=== PATIENT | female | born 1940 | race Caucasian/White ===

== ENCOUNTER 2019-12-01 14:33 | Outpatient (CLI) | payer MEDICARE, SELFPAY ==
--- NOTE | 2019-12-01 15:00 | USCV_ITS ---
Mireille Kaur Age: 79 Gender: F : 1940 Exam Date: 12/01/2019 14:51 Ordering Phys: Jaclyn Donahue INTERVENTIONAL RADIOLOGY TECHNOLOGIST-C Technologist: PRADIP FARNSWORTH Exam Location: [facility] [place] Indication: PERIPHERAL VASCULAR DISEASE Risk Factors: Previous Vascular Surgery: RIGHT LEFT BP: 120.0 / BP: 130.0/ 0 0 Waveform Velocity (cm/s) Velocity (cm/s) Waveform Triphasic 177.8 Iliac Prox 96.8 Triphasic Triphasic 153.3 Iliac Mid 95.8 Triphasic Triphasic 128.5 Iliac Distal 116.2 Monophasic Triphasic 136.7 PHYSICAL THERAPY PROFESSOR 145.7 Monophasic Triphasic 124.6 SFA Prox 120.5 Monophasic Triphasic 110.3 SFA Mid 140.3 Monophasic Triphasic SFA Dist Monophasic 100.3 102.5 Monophasic 85.4 POP 133.1 Monophasic Monophasic 70.9 PROJECT ENGINEERING MANAGER 104.3 Monophasic Monophasic 122.3 DPA 79.2 Monophasic 1.2 MAXIMINO 1.3 FINDINGS RT DPA 125 RT PT 160 LT DPA 164 LT PT 165 Normal resting ABIs bilaterally 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 No significant arterial obstruction, based on the above findings Dr Blanca Nava MD [facility] (Electronically Signed) Final Date: 01 December 2019 23:27 S
== END 2019-12-01 14:34 | disposition home or self-care (01) ==
LOC: RAD 14:38
PROVIDERS: Visit Provider Nurse Practitioner Family
DX: L53.9 Erythematous condition, unspecified (principal); R60.0 Localized edema; I73.9 Peripheral vascular disease, unspecified; I70.8 Atherosclerosis of other arteries
CPT/HCPCS: 93925

== ENCOUNTER → 2019-12-06 09:28 | Outpatient (BNVA) | payer MEDICARE, SELFPAY | PROVIDERS: Visit Provider Nurse Practitioner | DX: E11.65 Type 2 diabetes mellitus with hyperglycemia; Z79.4 Long term (current) use of insulin; L03.90 Cellulitis, unspecified | CPT/HCPCS: 80053; 80061; 81000; 83036; 84443; 85025 ==

== ENCOUNTER → 2019-12-21 12:52 | Outpatient (BNVA) | payer MEDICARE, SELFPAY | PROVIDERS: PCP Nurse Practitioner; Visit Provider Internal Medicine | DX: E11.69 Type 2 diabetes mellitus with other specified complication (principal); I50.9 Heart failure, unspecified; R79.89 Other specified abnormal findings of blood chemistry; K86.9 Disease of pancreas, unspecified; E55.9 Vitamin D deficiency, unspecified; K86.1 Other chronic pancreatitis; E78.5 Hyperlipidemia, unspecified | CPT/HCPCS: 36415; 80048; 82044; 82306; 84439; 84443; 84480; 84681; 99203 ==

== ENCOUNTER 2019-12-21 15:48 | Outpatient (CLI) | payer MEDICARE, SELFPAY ==
[2019-12-21 18:18] LABS: Anion Gap 14.7 (5-19); Blood Urea Nitrogen 30 mg/dL (8-23); Calcium 9.2 mg/dL (8.5-10.5); Carbon Dioxide 22 mmol/L (22-29); Chloride 95 mmol/L (98-107); Glucose 156 mg/dL (65-115); Osmolality Calculated 264 mOsm/kg (285-295); Potassium 4.7 mmol/L (3.5-5.1); Sodium 127 mmol/L (136-145); Thyroid Stimulating Hormone 0.01 uIU/mL (0.27-4.20)
[2019-12-21 19:28] LABS: Free T4 Free Thyroxine 2.98 ng/dL (0.82-1.77)
[2019-12-21 19:54] LABS: 25 Hydroxy Vitamin D > 100 ng/mL (30-100)
[2019-12-21 19:59] LABS: Creatinine Urine, Random 129 mg/dL (28-217)
[2019-12-21 20:03] LABS: Microalbum Creatinine Ratio Ur 8 mg/dL (0-20); Microalbumin Random Urine 1 ug/dL (0-20)
[2019-12-23 10:54] LABS: T3 Total 264 ng/dL (76-181)
[2019-12-23 11:55] LABS: C-Peptide 0.74 ng/mL (0.80-3.85)
== END 2019-12-21 15:49 | disposition home or self-care (01) ==
PROVIDERS: PCP Nurse Practitioner; Visit Provider Internal Medicine
DX: R79.89 Other specified abnormal findings of blood chemistry (principal); E55.9 Vitamin D deficiency, unspecified; E11.69 Type 2 diabetes mellitus with other specified complication; K86.9 Disease of pancreas, unspecified
CPT/HCPCS: 36415; 80048; 82044; 82306; 84439; 84443; 84480; 84681; 86376

== ENCOUNTER → 2019-12-22 11:53 | Outpatient (BNVA) | payer MEDICARE, SELFPAY | PROVIDERS: PCP Nurse Practitioner; Visit Provider Nurse Practitioner | DX: E87.1 Hypo-osmolality and hyponatremia (principal); I50.9 Heart failure, unspecified; K86.1 Other chronic pancreatitis | CPT/HCPCS: 80048; 82150; 83690 ==

== ENCOUNTER 2019-12-26 10:43 | Outpatient (CLI) | payer MEDICARE, SELFPAY ==
--- NOTE | 2019-12-26 | XR_ITS ---
WS: [id number] DEXA (DUAL ENERGY X-RAY ABSORPTIOMETRY) Bone mineral density was performed using a [email or web address] machine. HISTORY: POSTMENOPAUSAL STATE COMPARISON: None available. Left forearm BMD: 0.625 g/cm2. T score: -2.9 Z score: -0.3 Total hip BMD: Left: 0.750. T score: -2.0 Z score: -0.2 10 year probability of a major osteoporotic fracture is 32%. XR/XR DEXA axial skeleton* [id number] IMPRESSION: OSTEOPOROSIS based upon the WHO classification for females.
== END 2019-12-26 10:44 | disposition home or self-care (01) ==
LOC: RADWPI 10:50
PROVIDERS: Family Provider Nurse Practitioner; PCP Nurse Practitioner; Visit Provider Internal Medicine
DX: Z78.0 Asymptomatic menopausal state (principal); M81.0 Age-related osteoporosis without current pathological fracture
CPT/HCPCS: 77080

== ENCOUNTER 2019-12-29 10:29 | Outpatient (CLI) | payer MEDICARE, SELFPAY ==
[2019-12-29 11:36] LABS: Free T4 Free Thyroxine 2.13 ng/dL (0.82-1.77)
== END 2019-12-29 10:30 | disposition home or self-care (01) ==
LOC: LAB 10:34
PROVIDERS: PCP Nurse Practitioner; Visit Provider Internal Medicine
DX: R79.89 Other specified abnormal findings of blood chemistry (principal)
CPT/HCPCS: 83516; 84439

== ENCOUNTER 2020-01-05 10:43 | Outpatient (CLI) | payer MEDICARE, SELFPAY | END 2020-01-05 10:44 | disposition home or self-care (01) | LOC: LAB 10:47 | PROVIDERS: PCP Nurse Practitioner; Visit Provider Internal Medicine | DX: R79.89 Other specified abnormal findings of blood chemistry (principal) | CPT/HCPCS: 83516; 84439 ==

== ENCOUNTER → 2020-01-16 11:48 | Outpatient (BNVA) | payer MEDICARE, SELFPAY | PROVIDERS: PCP Nurse Practitioner; Referring Provider Internal Medicine Pulmonary Disease; Visit Provider Internal Medicine Cardiovascular Disease | DX: R06.02 Shortness of breath (principal); I50.33 Acute on chronic diastolic (congestive) heart failure; I73.9 Peripheral vascular disease, unspecified; R55 Syncope and collapse; E11.65 Type 2 diabetes mellitus with hyperglycemia; Z79.4 Long term (current) use of insulin; E78.5 Hyperlipidemia, unspecified; I25.10 Atherosclerotic heart disease of native coronary artery without angina pectoris; R07.89 Other chest pain; Z95.818 Presence of other cardiac implants and grafts; Z87.891 Personal history of nicotine dependence | CPT/HCPCS: 80048; 83880 ==

== ENCOUNTER → 2020-01-23 09:35 | Outpatient (BNVA) | payer MEDICARE, SELFPAY | PROVIDERS: PCP Nurse Practitioner; Visit Provider Internal Medicine | DX: E11.69 Type 2 diabetes mellitus with other specified complication (principal); E67.3 Hypervitaminosis D; E78.5 Hyperlipidemia, unspecified; K86.1 Other chronic pancreatitis; K86.9 Disease of pancreas, unspecified; M81.0 Age-related osteoporosis without current pathological fracture; R79.89 Other specified abnormal findings of blood chemistry | CPT/HCPCS: 99214 ==

== ENCOUNTER 2020-01-23 10:57 | Outpatient (CLI) | payer MEDICARE, SELFPAY ==
[2020-01-23 12:42] LABS: Free T4 Free Thyroxine 1.45 ng/dL (0.82-1.77)
== END 2020-01-23 10:58 | disposition home or self-care (01) ==
LOC: LAB 11:03
PROVIDERS: PCP Nurse Practitioner; Visit Provider Internal Medicine
DX: R79.89 Other specified abnormal findings of blood chemistry (principal)
CPT/HCPCS: 84439

== ENCOUNTER → 2020-02-16 10:32 | Outpatient (BNVA) | payer MEDICARE, SELFPAY | PROVIDERS: PCP Nurse Practitioner; Visit Provider Nurse Practitioner | DX: I50.9 Heart failure, unspecified (principal); E78.5 Hyperlipidemia, unspecified; Z12.39 Encounter for other screening for malignant neoplasm of breast; R09.81 Nasal congestion; H60.90 Unspecified otitis externa, unspecified ear | CPT/HCPCS: 80048 ==

== ENCOUNTER 2020-03-19 08:42 | Outpatient (CLI) | payer MEDICARE, SELFPAY ==
[2020-03-19 09:35] LABS: Estmated Average Glucose 235; Hemoglobin A1C 9.8 % (4.0-6.0)
[2020-03-19 09:44] LABS: Free T4 Free Thyroxine 1.15 ng/dL (0.82-1.77); Thyroid Stimulating Hormone 3.81 uIU/mL (0.27-4.20)
== END 2020-03-19 08:43 | disposition home or self-care (01) ==
PROVIDERS: PCP Nurse Practitioner; Visit Provider Internal Medicine
DX: R79.89 Other specified abnormal findings of blood chemistry (principal)
CPT/HCPCS: 36415; 83036; 84439; 84443

== ENCOUNTER 2020-03-26 13:45 | Outpatient (CLI) | payer MEDICARE, SELFPAY | END 2020-03-26 13:46 | disposition home or self-care (01) | LOC: LAB 01-09 12:20 | PROVIDERS: PCP Nurse Practitioner; Visit Provider Internal Medicine Pulmonary Disease | DX: I50.9 Heart failure, unspecified (principal); J44.9 Chronic obstructive pulmonary disease, unspecified; Z87.891 Personal history of nicotine dependence; I27.20 Pulmonary hypertension, unspecified; R06.02 Shortness of breath; Z20.822 Contact with and (suspected) exposure to COVID-19 | CPT/HCPCS: 87635 ==

== ENCOUNTER 2020-03-27 08:45 | Outpatient (CLI) | payer MEDICARE, SELFPAY ==
--- NOTE | 2020-03-27 09:00 | MM_ITS ---
WS: [id number] BILATERAL SCREENING DIGITAL MAMMOGRAM WITH CAD HISTORY: screen breast COMPARISON: None available. Bilateral CC and MLO views submitted. Computer aided detection analyzed. Breast composition: There are scattered areas of fibroglandular density. No suspicious masses, microc alcifications or architectural distortion. Cardiac loop or cortical projects over the posterior LEFT breast. MM/[place] [id number] IMPRESSION: BI-RADS: 2-Benign FOLLOW UP: 1 Year Follow-up
== END 2020-03-27 08:46 | disposition home or self-care (01) ==
PROVIDERS: PCP Nurse Practitioner; Visit Provider Nurse Practitioner
DX: Z12.31 Encounter for screening mammogram for malignant neoplasm of breast (principal)
CPT/HCPCS: 77067; 99214

== ENCOUNTER 2020-04-03 08:53 | Outpatient (CLI) | payer MEDICARE, SELFPAY ==
--- NOTE | 2020-04-03 09:15 | CT_ITS ---
WS: [id number] CT HEAD TECHNIQUE: Noncontrast and contrast-enhanced CT of the head. CLINICAL INFORMATION: SENSORINEURAL HEARING LOSS COMPARISON: None. DLP: 1851.[address] scans at [facility] use at least one of these dose optimization techniques: automat ed exposure control; mA and/or kV adjustment per patient size (includes targeted exams where dose is matched to clinical indication); or iterative reconstruction. FINDINGS: No evidence of intracranial hemorrhage or mass effect. Ventricular system and basal cisterns are celaya nt. Benign basal ganglia calcifications. Mild parenchymal volume loss. Normal morrison-white differentiat ion. No abnormal intracranial enhancement. No abnormal IAC enhancement. Visualized dural venous sinuses ap pear patent. Paranasal sinuses appear well aerated. Mastoid air cells are well aerated. CT/CT head wo/w con [id number] IMPRESSION: 1. No evidence of intracranial hemorrhage or mass effect. 2. Normal morrison-white differentiation. Mild parenchymal volume loss. 3. No abnormal intracranial enhancement. 4. No evidence of CP angle or proximal IAC mass. 5. Paranasal sinuses and mastoid air cells well aerated.
[2020-04-03] MEDS: iohexol 300 mg/mL 100 mL Btl IV (10:00)
== END 2020-04-03 08:54 | disposition home or self-care (01) ==
LOC: RADWPI 08:57
PROVIDERS: PCP Nurse Practitioner; Visit Provider Specialist
DX: H90.3 Sensorineural hearing loss, bilateral (principal)
CPT/HCPCS: 70470; Q9967

== ENCOUNTER 2020-04-03 11:00 | Outpatient (CLI) | payer MEDICARE, SELFPAY | END 2020-04-03 11:01 | disposition home or self-care (01) | LOC: SLEEP 04-04 16:19 | PROVIDERS: PCP Nurse Practitioner; Visit Provider Internal Medicine Pulmonary Disease | DX: G47.33 Obstructive sleep apnea (adult) (pediatric) (principal) | CPT/HCPCS: 94762 ==

== ENCOUNTER → 2020-04-05 13:37 | Outpatient (BNVA) | payer MEDICARE, SELFPAY | PROVIDERS: PCP Nurse Practitioner; Visit Provider Internal Medicine Pulmonary Disease | DX: Z11.59 Encounter for screening for other viral diseases (principal); R06.02 Shortness of breath | CPT/HCPCS: 87635 ==

== ENCOUNTER 2020-04-10 12:39 | Outpatient (CLI) | payer MEDICARE, SELFPAY ==
[2020-04-10 13:15] VITALS: BP 150/83
== END 2020-04-10 12:40 | disposition home or self-care (01) ==
LOC: RT 12:40
PROVIDERS: PCP Nurse Practitioner; Visit Provider Internal Medicine Pulmonary Disease
DX: R06.02 Shortness of breath (principal)
CPT/HCPCS: 94618

== ENCOUNTER → 2020-05-01 13:40 | Outpatient (BNVA) | payer MEDICARE, SELFPAY | PROVIDERS: PCP Nurse Practitioner; Referring Provider Dermatology; Visit Provider Podiatrist Foot & Ankle Surgery | DX: M79.671 Pain in right foot (principal); M79.672 Pain in left foot | CPT/HCPCS: 73630 ==

== ENCOUNTER → 2020-05-15 11:38 | Outpatient (BNVA) | payer MEDICARE, SELFPAY | PROVIDERS: PCP Nurse Practitioner; Visit Provider Internal Medicine Pulmonary Disease | DX: R06.02 Shortness of breath (principal); Z20.828 Contact with and (suspected) exposure to other viral communicable diseases | CPT/HCPCS: 87635 ==

== ENCOUNTER 2020-05-21 10:03 | Outpatient (CLI) | payer MEDICARE, SELFPAY ==
--- NOTE | 2020-05-21 13:26 | PFTS_ITS ---
Date of Study:05/21/20 Date of Dictation: MECHANICS: Forced vital capacity (FVC) is normal. Forced expiratory volume in one second (FEV1) is moderately reduced. FEV1/FVC is reduced. FLOW VOLUME LOOP: scooping of end expiratory limb suggestive of small airway obstruction . LUNG VOLUMES: Total lung capacity (TLC) is normal . Residual volume (RV) is moderately increased suggestive of air trapping . DIFFUSING CAPACITY FOR CARBON MONOXIDE:normal . INTERPRETATION: The spirometry suggestive moderately reduced obstructive ventilatory defect. Lung volumes suggestive of moderate air trapping. Gas exchange (DLCO) is normal. . MTDD
== END 2020-05-21 10:04 | disposition home or self-care (01) ==
LOC: RT 10:06
PROVIDERS: PCP Nurse Practitioner; Visit Provider Internal Medicine Pulmonary Disease
DX: R06.02 Shortness of breath (principal)
CPT/HCPCS: 94060; 94726; 94729; J7611

== ENCOUNTER → 2020-06-03 10:06 | Outpatient (BNVA) | payer MEDICARE, SELFPAY | PROVIDERS: PCP Nurse Practitioner; Visit Provider Nurse Practitioner | DX: E13.610 Other specified diabetes mellitus with diabetic neuropathic arthropathy (principal); L03.90 Cellulitis, unspecified | CPT/HCPCS: 85025 ==

== ENCOUNTER → 2020-06-24 08:12 | Outpatient (BNVA) | payer MEDICARE, SELFPAY | PROVIDERS: PCP Nurse Practitioner; Visit Provider Internal Medicine | DX: E03.9 Hypothyroidism, unspecified (principal); E11.65 Type 2 diabetes mellitus with hyperglycemia; R79.89 Other specified abnormal findings of blood chemistry; K86.1 Other chronic pancreatitis; Z79.4 Long term (current) use of insulin; E67.3 Hypervitaminosis D; I50.9 Heart failure, unspecified; M81.0 Age-related osteoporosis without current pathological fracture; E11.610 Type 2 diabetes mellitus with diabetic neuropathic arthropathy | CPT/HCPCS: 83036; 84439; 84443; 84480; 99214 ==

== ENCOUNTER → 2020-07-09 09:51 | Outpatient (BNVA) | payer MEDICARE, SELFPAY | PROVIDERS: PCP Nurse Practitioner; Visit Provider Nurse Practitioner | DX: E11.621 Type 2 diabetes mellitus with foot ulcer (principal); Z79.4 Long term (current) use of insulin; E11.65 Type 2 diabetes mellitus with hyperglycemia; L97.509 Non-pressure chronic ulcer of other part of unspecified foot with unspecified severity; M85.871 Other specified disorders of bone density and structure, right ankle and foot; Z89.411 Acquired absence of right great toe | CPT/HCPCS: 73630 ==

== ENCOUNTER → 2020-07-11 08:49 | Outpatient (BNVA) | payer MEDICARE, SELFPAY | PROVIDERS: PCP Nurse Practitioner; Visit Provider Internal Medicine Pulmonary Disease | DX: E03.9 Hypothyroidism, unspecified (principal); I27.20 Pulmonary hypertension, unspecified | CPT/HCPCS: 80053 ==

== ENCOUNTER → 2020-08-06 09:45 | Outpatient (BNVA) | payer MEDICARE, SELFPAY | PROVIDERS: PCP Nurse Practitioner; Visit Provider Nurse Practitioner | DX: E11.621 Type 2 diabetes mellitus with foot ulcer (principal); E13.610 Other specified diabetes mellitus with diabetic neuropathic arthropathy; I10 Essential (primary) hypertension; E78.5 Hyperlipidemia, unspecified; L97.509 Non-pressure chronic ulcer of other part of unspecified foot with unspecified severity; Z79.4 Long term (current) use of insulin | CPT/HCPCS: 80048 ==

== ENCOUNTER 2020-11-08 08:03 | Outpatient (CLI) | payer MEDICARE, SELFPAY ==
[2020-11-08 08:16] VITALS: BMI 29.7
--- NOTE | 2020-11-08 08:39 | ECG_ITS ---
[facility] Test Date: 2020-11-08 Pat Name: Mireille Kaur Department: Room: Gender: Female Parts Sales Associate: Roseann Carbajal : 1940 Requested By: Blanca Nava Order Number: [id number] Reading MD: Blanca Nava M.D. Interpretive Statements NAME OF STUDY: LEXISCAN SESTAMIBI STRESS TEST INDICATION: Chest Pain, PROCEDURE: At the baseline, the EKG revealed normal sinus rhythm with a normal ST-T's. The baseline blood pressure was 192/92 mm Hg with a heart rate of 77 beats/min. Lexiscan was infused over a period of 20 seconds. A total of 0.4 milligrams of Lexiscan was infused. The stress phase was continued for a total of 5 minutes. Heart rate at the end of the stress phase was 95 with a blood pressure 180/100. The EKG at the peak infusion revealed no significant changes. Sestamibi was injected 20 seconds after the Lexiscan infusion. Blood pressure at the end of the recovery phase was 174/98 with a heart rate of 96 per minute. CONCLUSION: 1. No significant EKG changes with the LexiScan infusion 2. No LexiScan induced chest pain or cardiac arrhythmia 3. Normal blood pressure and heart rate response 4. Sestamibi/sestamibi perfusion scan pending; see separate report. Electronically Signed On 11-08-2020 10:03:54 CDT by Blanca Nava M.D. [email or web address]
--- NOTE | 2020-11-08 08:40 | NMCV_ITS ---
NM isaac perf SPECT r/s* [id number] Mireille Kaur Age: 80 Gender: F : 1940 Exam Date: 11/08/2020 09:05 Ordering Phys: Blanca Nava MD ([email or web address]) Technologist: JIMMIE Gómez Exam Location: [facility] Indications: SHORTNESS OF BREATH, CHEST PAIN STRESS TEST Please [facility] IMAGE PROTOCOL Rest/Stress 1 Lexiscan Day Radiopharmaceutical Dose (mCi) Administration Site Administered by Rest: Tc-99m 10.8 IV JIMMIE Carrasco Sestamibi Stress:Tc-99m 32.8 IV JIMMIE Carrasco Sestamibi Rest: 08-Nov-2020 60 Discovery 630 Stress: 08-Nov-2020 30 Discovery 630 0.4mg Lexiscan. Supine position only as patient was unable to lay prone. SPECT RESULTS Technical Quality: Excellent Raw Data Analysis: Normal Image Corrections: No attenuation or motion correction applied Summed Stress Score: 1 Summed Rest Score: 2 Summed Difference Score: 0 PERFUSION FINDINGS Fairly uniform myocardial tracer uptake with patchy areas of decreased tracer uptake in the apical segments with no significant reversibility FUNCTIONAL RESULTS (calculated via Gated SPECT) Stress Image LV EF (%): 74 Stress EDV (mL):62 TID: 0.92 Stress ESV (mL):16 FUNCTIONAL FINDINGS: Segmental wall motion analysis revealing no gross wall motion normalities. IMPRESSIONS 1. Myocardial perfusion imaging revealing patchy areas of persistent decreased tracer uptake in the apical segments, most likely represent attenuation artifacts. 2. Normal LV ejection fraction of 74%. 3. LV wall motion analysis revealing no gross wall motion normalities. 4. Normal LV volume. No significant coronary ischemia, based on the above findings Dr Blanca Nava MD [facility] (Electronically Signed) Final Date: 08 November 2020 11:03 S
[2020-11-08 09:50] VITALS: BP 161/102; PULSE 100
[2020-11-08] MEDS: regadenoson 0.4 Mg/5 ml Syringe IVP (09:50)
== END 2020-11-08 08:04 | disposition home or self-care (01) ==
LOC: CDL 08:06
PROVIDERS: PCP Nurse Practitioner; Visit Provider Internal Medicine Cardiovascular Disease
DX: R07.9 Chest pain, unspecified (principal); R06.02 Shortness of breath
CPT/HCPCS: 78452; 93017; A9500; J2785

== ENCOUNTER → 2020-12-23 08:31 | Day surgery (SDC) | payer MEDICARE, SELFPAY ==
[2020-12-23 08:53] VITALS: BP 134/74; PULSE 64; RESP 18; TEMP 36.5; O2SAT 97
[2020-12-23 09:30] LABS: Blood Urea Nitrogen 14 mg/dL (8-23); Calcium 8.8 mg/dL (8.5-10.5)
== END ==
PROVIDERS: PCP Nurse Practitioner; Visit Provider Internal Medicine
DX: M81.0 Age-related osteoporosis without current pathological fracture (principal)
CPT/HCPCS: 36415; 82310; 82565; 84520; 96365; J3489

== ENCOUNTER → 2021-01-27 15:14 | Outpatient (BNVA) | payer MEDICARE, SELFPAY | PROVIDERS: PCP Nurse Practitioner; Visit Provider Specialist | DX: J01.90 Acute sinusitis, unspecified (principal) | CPT/HCPCS: 80048; 85007; 85027 ==

== ENCOUNTER → 2021-02-18 10:01 | Outpatient (BNVA) | payer MEDICARE, SELFPAY | PROVIDERS: PCP Nurse Practitioner; Visit Provider Internal Medicine Pulmonary Disease | DX: E11.69 Type 2 diabetes mellitus with other specified complication (principal); K86.9 Disease of pancreas, unspecified; R79.89 Other specified abnormal findings of blood chemistry | CPT/HCPCS: 82570; 83036; 84156 ==

== ENCOUNTER → 2021-03-05 10:01 | Outpatient (BNVA) | payer MEDICARE, SELFPAY | PROVIDERS: PCP Nurse Practitioner; Visit Provider Nurse Practitioner | DX: I10 Essential (primary) hypertension (principal) | CPT/HCPCS: 81000 ==

== ENCOUNTER → 2021-03-10 17:09 | Outpatient (BNVA) | payer MEDICARE, SELFPAY | PROVIDERS: PCP Nurse Practitioner; Visit Provider Specialist | DX: H90.3 Sensorineural hearing loss, bilateral (principal); H93.13 Tinnitus, bilateral | CPT/HCPCS: 84520 ==

== ENCOUNTER 2021-04-08 13:32 | Outpatient (CLI) | payer MEDICARE, SELFPAY ==
--- NOTE | 2021-04-08 14:00 | MM_ITS ---
WS: [id number] BILATERAL DIGITAL SCREENING MAMMOGRAPHY WITH CAD CLINICAL INFORMATION: Z12.31 - Encounter for screening mammogram for malignant ... HISTORY: Screening mammogram. No current complaints. COMPARISON: March 27, 2020 TECHNIQUE: Bilateral CC and MLO views. FINDINGS: Loop recorder left breast Scattered fibroglandular densities bilaterally. Vascular calcification. No suspicious focal mass, asy mmetry, calcifications, or architectural distortion. No evidence of malignancy. MM/[place] [id number] IMPRESSION: BI-RADS: 2-Benign FOLLOW UP: 1 Year Follow-up Recommend return to annual screening mammography.
== END 2021-04-08 13:33 | disposition home or self-care (01) ==
LOC: RADSHAW 13:36
PROVIDERS: PCP Nurse Practitioner; Visit Provider Nurse Practitioner
DX: Z12.31 Encounter for screening mammogram for malignant neoplasm of breast (principal)
CPT/HCPCS: 77067

== ENCOUNTER 2021-04-22 07:51 | Outpatient (CLI) | payer MEDICARE, SELFPAY ==
--- NOTE | 2021-04-22 | CT_ITS ---
WS: [id number] CT HEAD TECHNIQUE: Noncontrast and contrast-enhanced CT of the head. CLINICAL INFORMATION: BILATERAL HEARING LOSS, TINNITIS COMPARISON: April 03, 2020 DLP: 2344.[address] scans at [facility] use at least one of these dose optimization techniques: automated e xposure control; mA and/or kV adjustment per patient size (includes targeted exams where dose is matc hed to clinical indication); or iterative reconstruction. FINDINGS: No evidence of intracranial hemorrhage or mass effect. Ventricular system and basal cisterns are celaya nt. Mild small vessel changes. Mild parenchymal volume loss. Basal ganglia calcifications. Cavernous carotid calcifications. Normal morrison-white differentiation.No abnormal intracranial enhancement.No oral dence of CP angle or proximal IAC mass. CT/CT head wo/w con [id number] IMPRESSION: 1. No evidence of intracranial hemorrhage or mass effect. 2. Mild mucosal thickening ethmoid air cells. Paranasal sinuses are well aerat ed where visualized. Maxillary sinuses not entirely included. 3. Mastoid air cells are well aerated. 4. No abnormal intracranial enhancement.
[2021-04-22 08:24] LABS: Blood Urea Nitrogen 9 mg/dL (8-23)
[2021-04-22] MEDS: iohexol 300 mg/mL 100 mL Btl IV (15:11)
== END 2021-04-22 07:52 | disposition home or self-care (01) ==
PROVIDERS: PCP Nurse Practitioner; Visit Provider Specialist
DX: H90.3 Sensorineural hearing loss, bilateral (principal); H93.13 Tinnitus, bilateral
CPT/HCPCS: 70470; 82565; 84520; Q9967

== ENCOUNTER → 2021-06-27 08:08 | Outpatient (BNVA) | payer MEDICARE, OTHER, SELFPAY | PROVIDERS: PCP Nurse Practitioner; Visit Provider Internal Medicine | DX: E11.65 Type 2 diabetes mellitus with hyperglycemia (principal); E11.69 Type 2 diabetes mellitus with other specified complication; I50.9 Heart failure, unspecified; E03.9 Hypothyroidism, unspecified; E67.3 Hypervitaminosis D; R79.89 Other specified abnormal findings of blood chemistry; E78.5 Hyperlipidemia, unspecified; K86.9 Disease of pancreas, unspecified; K86.1 Other chronic pancreatitis; M81.0 Age-related osteoporosis without current pathological fracture; E16.0 Drug-induced hypoglycemia without coma; T38.3X5A Adverse effect of insulin and oral hypoglycemic [antidiabetic] drugs, initial encounter; Z79.4 Long term (current) use of insulin; Z87.891 Personal history of nicotine dependence | CPT/HCPCS: 99215 ==

== ENCOUNTER → 2021-07-01 08:16 | Outpatient (BNVA) | payer MEDICARE, OTHER, SELFPAY | PROVIDERS: PCP Nurse Practitioner; Visit Provider Internal Medicine | DX: E03.9 Hypothyroidism, unspecified (principal); E11.65 Type 2 diabetes mellitus with hyperglycemia; E67.3 Hypervitaminosis D; E78.5 Hyperlipidemia, unspecified; I50.9 Heart failure, unspecified; R79.89 Other specified abnormal findings of blood chemistry | CPT/HCPCS: 80053; 80061; 82306; 83036; 84439; 84443 ==

== ENCOUNTER → 2021-07-14 08:16 | Outpatient (BNVA) | payer MEDICARE, OTHER, SELFPAY | PROVIDERS: PCP Nurse Practitioner; Visit Provider Internal Medicine | DX: E11.69 Type 2 diabetes mellitus with other specified complication (principal); K86.9 Disease of pancreas, unspecified; K86.1 Other chronic pancreatitis; E67.3 Hypervitaminosis D; M81.0 Age-related osteoporosis without current pathological fracture; E03.9 Hypothyroidism, unspecified; E78.5 Hyperlipidemia, unspecified; E16.0 Drug-induced hypoglycemia without coma; T38.3X5A Adverse effect of insulin and oral hypoglycemic [antidiabetic] drugs, initial encounter; Z79.4 Long term (current) use of insulin; Z87.891 Personal history of nicotine dependence | CPT/HCPCS: 99214 ==

== ENCOUNTER 2021-07-24 07:56 | Outpatient (CLI) | payer MEDICARE, OTHER, SELFPAY ==
--- NOTE | 2021-07-24 08:45 | USCV_ITS ---
Mireille Kaur Age: 81 Gender: F : 1940 Exam Date: 07/24/2021 09:00 Ordering Phys: Farhad Rob MD Technologist: Ramone Hallman Exam Location: [facility] [place] Indication: Dizziness upon laying down BP: 121 / 75 HR: 59 Rhythm: Sinus Technical Quality: Adequate MEASUREMENTS (Male / Female) Normal Values 2D ECHO LV Diastolic Diameter PLAX 3.6 cm 4.2 - 5.9 / 3.9 - 5.3 cm LV Systolic Diameter PLAX 2.6 cm IVS Diastolic Thickness 1.7 cm 0.6 - 1.0 / 0.6 - 0.9 cm IVS Systolic Thickness 1.3 cm LVPW Diastolic Thickness 1.7 cm 0.6 - 1.0 / 0.6 - 0.9 cm LVPW Systolic Thickness 2.2 cm LVOT Diameter 2.0 cm LV Ejection Fraction 2D Teich 43.7 % LV Ejection Fraction MOD 2C 60.7 % LV Ejection Fraction 2C AL 60.0 % LA Diameter 3.6 cm LA Width 3.7 cm LA Height 5.9 cm RA Width 3.9 cm RA Height 4.7 cm Aorta at Sinotubular Diameter 1.9 cm M-MODE Aortic Annulus Diameter 2.2 cm LA Ao Ratio MM 1.7 MV E Point Septal Separation 0.8 cm DOPPLER AV Peak Velocity 204.0 cm/s LVOT Peak Velocity 89.0 cm/s AV Area Cont Eq vti 1.5 cm squared AV Area Cont Eq pk 1.4 cm squared MV Area PHT 3.5 cm squared Mitral E to A Ratio 1.6 MV E' Velocity 58.0 cm/s Mitral E to MV E' Ratio 9.7 Mitral E to LV E' Lateral Ratio 8.6 Mitral E to LV E' Septal Ratio 11.2 TR Peak Velocity 212.8 cm/s TR Peak Gradient 18.1 mmHg TR Mean Velocity 133.7 cm/s TR Mean Gradient 8.0 mmHg TR Velocity Time Integral 42.9 cm Right Atrial Pressure 3.0 mmHg Pulmonary Artery Systolic Pressu 21.1 mmHg PV Peak Velocity 90.0 cm/s FINDINGS Left Ventricle Normal left ventricular size. LV systolic function is normal with EF of 55-60%. No regional wall motion abnormalities. Diastolic function is normal Right Ventricle The right ventricle is normal in size and function. Right Atrium The right atrium is normal in size. Left Atrium The left atrium is normal in size. Mitral Valve Structurally normal mitral valve without significant stenosis or prolapse. There is mild mitral regurgitation. Aortic Valve Structurally normal aortic valve without significant sclerosis or stenosis. There is no aortic regurgitation. Tricuspid Valve Structurally normal tricuspid valve without significant stenosis. Mild tricuspid regurgitation. Insufficient TR jet to calculate RVSP. Pulmonic Valve Structurally normal pulmonic valve without significant stenosis. There is no pulmonic regurgitation. Pericardium Normal pericardium without effusion. Aorta Normal ascending aorta dimension. CONCLUSIONS LV systolic function is normal with EF 55 to 60%. Diastolic function is normal. Mild mitral regurgitation is seen. Mild tricuspid regurgitation No comparison studies are available Ilya Franco MD (Electronically Signed) Final Date: 25 July 2021 16:49 S
== END 2021-07-24 07:57 | disposition home or self-care (01) ==
LOC: RAD 07:58
PROVIDERS: PCP Nurse Practitioner; Visit Provider Internal Medicine Pulmonary Disease
DX: I27.20 Pulmonary hypertension, unspecified (principal); R42 Dizziness and giddiness; I08.1 Rheumatic disorders of both mitral and tricuspid valves
CPT/HCPCS: 93306

== ENCOUNTER → 2021-08-04 13:21 | Outpatient (BNVA) | payer MEDICARE, OTHER, SELFPAY | PROVIDERS: PCP Nurse Practitioner; Visit Provider Internal Medicine Cardiovascular Disease | DX: E11.65 Type 2 diabetes mellitus with hyperglycemia (principal); I27.20 Pulmonary hypertension, unspecified; I25.10 Atherosclerotic heart disease of native coronary artery without angina pectoris; Z87.891 Personal history of nicotine dependence | CPT/HCPCS: 99214 ==

== ENCOUNTER 2021-09-24 17:29 | Emergency (ER) | payer MEDICARE, OTHER, SELFPAY ==
[2021-09-24] VITALS (7 sets, daily range): BP systolic 139–172; BP diastolic 76–91; PULSE 70–107; RESP 21–25; TEMP 36.8; O2SAT 90–95; BMI 28.7
--- NOTE | 2021-09-24 17:45 | XRR_ITS ---
PROCEDURE INFORMATION: Exam: XR Chest Exam date and time: 09/24/2021 6:22 PM Age: 81 years old Clinical indication: Chest wall pain; Additional info: Chest pain TECHNIQUE: Imaging protocol: XR of the chest. Views: 1 view. COMPARISON: No relevant prior studies available. FINDINGS: Tubes, catheters and devices: Spinal stimulator leads noted within the midthoracic spine. Loop recorder device noted in the left chest wall. Lungs: No consolidation. Pleural spaces: No pleural effusion. No pneumothorax. Heart/Mediastinum: No cardiomegaly. Hiatal hernia noted. Bones/joints: Visualized osseous structures are intact. Rotator cuff anchor noted in the right humeral head. XR/XR chest 1V portable [id number] IMPRESSION: No acute findings.
[2021-09-24 18:12] LABS: Basophils % 0.2 %; Eosinophils % 0.2 %; Hematocrit 35.7 % (37.0-47.0); Hemoglobin 11.2 g/dL (11.5-15.3); Lymphocytes # 3.6 10^3/uL (0.8-4.8); Lymphocytes % 28.1 %; Mean Corpuscular HGB Conc 31.4 g/dL (30.0-36.0); Mean Corpuscular Hemoglobin 25.3 pg (28.0-34.0); Mean Corpuscular Volume 80.6 fl (81-99); Monocytes % 8.1 %; Neutrophils # 8.03 10^3/uL (1.8-7.7); Neutrophils % 62.8 %; Nucleated Red Blood Cells % 0 %; Platelet Count 289 10^3/cmm (130-400); Red Blood Count 4.43 10^6/uL (4.1-5.3); Red Cell Distribution Width 15.9 % (12.1-15.1); White Blood Count 12.8 10^3/uL (4.0-10.0)
[2021-09-24 18:54] LABS: Lipase 98 U/L (13-60)
[2021-09-24 18:55] LABS: Troponin(5th) Baseline 11 ng/L (0-10)
[2021-09-24 18:59] LABS: Alanine Aminotransferase 14 U/L (0-33); Albumin Level 3.9 g/dL (3.5-5.2); Alkaline Phosphatase 124 IU/L (35-105); Aspartate Amino Transferase 13 U/L (0-32); Blood Urea Nitrogen 10 mg/dL (8-23); Calcium 8.9 mg/dL (8.5-10.5); Carbon Dioxide 22 mmol/L (22-29); Chloride 96 mmol/L (98-107); Creatinine Clr Calc Pharmacy 47.8777; Globulin 4.2 g/dL (1.3-4.6); Glucose 167 mg/dL (65-115); NT Pro B Type Natriuretic Pept 489 pg/mL (0-450); Osmolality Calculated 275 mOsm/kg (285-295); Sodium 131 mmol/L (136-145); Total Bilirubin 0.7 mg/dL (0.15-1.2); Total Protein 8.1 g/dL (6.6-8.7)
--- NOTE | 2021-09-24 19:29 | CTR_ITS ---
PROCEDURE INFORMATION: Exam: CT Abdomen And Pelvis With Contrast Exam date and time: 09/24/2021 7:56 PM Age: 81 years old Clinical indication: Abdominal pain; Localized; Right upper quadrant (ruq); Prior surgery; Surgery date: 6+ months; Surgery type: Hysterectomy, heart stents; Patient HX: HX of chronic pancreatitis, family HX of pancreatitis; Additional info: Pancreatitis suspected, multiple family member from pancreatic disease TECHNIQUE: Imaging protocol: Computed tomography of the abdomen and pelvis with contrast. Radiation optimization: All CT scans at this facility use at least one of these dose optimization techniques: automated exposure control; mA and/or kV adjustment per patient size (includes targeted exams where dose is matched to clinical indication); or iterative reconstruction. Contrast material: OMNI 300; Contrast volume: 48 ml; Contrast route: INTRAVENOUS (IV); COMPARISON: US abdomen complete* [id number] 07/14/2018 8:45 AM RADIATION DOSE METRICS: Total DLP (mGy-cm): 1353.37 FINDINGS: Liver: Normal. No mass. Gallbladder and bile ducts: Normal. No calcified stones. No ductal dilation. Pancreas: Irregular stricturing and dilation of the pancreatic duct measures measuring up to 1.3 cm. Scattered coarse calcifications throughout the pancreas most prominent in the pancreatic head. No acute inflammatory changes seen around the pancreas. Spleen: Normal. No splenomegaly. Adrenal glands: Normal. No mass. Kidneys and ureters: Simple appearing cysts within both kidneys measuring up to 7.6 cm in the upper pole of the left kidney. No hydronephrosis. Stomach and bowel: Moderate-sized hiatal hernia containing the proximal portion of the stomach. Colonic diverticulosis without findings to suggest acute diverticulitis. No obstruction. No mucosal thickening. Appendix: No evidence of appendicitis. Intraperitoneal space: Unremarkable. No free air. No significant fluid collection. Vasculature: Unremarkable. No abdominal aortic aneurysm. Lymph nodes: Unremarkable. No enlarged lymph nodes. Urinary bladder: Unremarkable as visualized. Reproductive: Hysterectomy. Bones/joints: No acute fracture. Grade 1 anterolisthesis of L4 on L5. Right total hip arthroplasty noted. Soft tissues: Spinal stimulator device noted in the right low back with leads extending into the thoracic spine. CT/CT abdomen pelvis w con* [id number] IMPRESSION: Sequela of chronic pancreatitis including irregular stricturing and dilation of the pancreatic duct and diffuse coarse calcifications. No acute inflammatory changes seen around the pancreas. COMMENTS: Consistent with the [employer]'s Incidental Findings Committee white paper (J Am Lonnie Radiol 2018): Any incidental renal lesion less than 1 cm or classified as too small to characterize, or any incidental cystic renal lesion characterized as simple-appearing, is likely benign. No follow-up imaging is recommended for these lesions per consensus recommendations based on imaging criteria.
[2021-09-24] MEDS: HYDROmorphone 1 mg/mL INJ 1 mL 0.4 MG IVP (19:40)
[2021-09-24] MEDS: ondansetron 2 mg/ML SDV 2 mL 4 MG IVP ×2 (19:41→21:50)
[2021-09-24] MEDS: iohexol 300 mg/mL 100 mL Btl IV (19:52)
--- NOTE | 2021-09-24 20:14 | ED_ITS ---
HPI - Chest Pain General: Chief Complaint: Chest Pain Stated Complaint: Chest pains Time Seen by Provider: 09/24/21 17:40 History of Present Illness: To [id number] female sensory department complaining of left lower chest as well as left upper quadrant and epigastric pain for the last 3 to 4 days. She reports no shortness of breath but she does have nausea. She has not noticed any definite postprandial association this time but in the past patient reports she has had pancreatitis. In fact several of her family members have had recurrent pancreatitis and even from it. She thinks there is some sort of a genetic predilection. Patient denies any fever, hemoptysis. She has had some yellowish sputum production. Pain radiates into her back at times. She takes lipase protease amylase capsules. She also has COPD. She is not sure whether she is ever had pleurisy. She does not think she is ever had a heart attack but has CHF. Review of Systems General: Reports: 10 or more systems reviewed and unremarkable except in HPI and below PFSH ED PFSH: Medical History Appendicitis, acute Atherosclerotic heart disease of [place] coronary artery without angina pectoris Patient had the cardiac catheterization in [place], in 2014. At that time, she was found to have mild diffuse coronary artery disease. Atypical chest pain Cataract Chronic episodic atrial fibrillation Chronic pancreatitis Congestive heart failure COPD (chronic obstructive pulmonary disease) Diabetes mellitus associated with pancreatic disease Dyslipidemia Peripheral vascular disease Recurrent syncope EKG from today 01/16/2020- revealed normal sinus rhythm with early repolarization changes in the inferolateral leads. No acute ST-T changes are noted. Normal HI interval with nonspecific intraventricular conduction delay Rotator cuff arthropathy Status post placement of implantable loop recorder Vitamin D deficiency Surgical History Hip joint replacement by other means History of appendectomy History of back surgery History of nasal surgery Hx of hysterectomy, total Hx of toe surgery Family History Brother Bleeding disorder Clotting disorder CAD (coronary artery disease) Stroke Father CAD (coronary artery disease) Cancer Chronic kidney disease (CKD) Sister CAD (coronary artery disease) Cancer Lung disease Diabetes Grandmother Cancer Grandfather CAD (coronary artery disease) Other Hypertension Denies family history of Dementia Suicide Anesthesia complication Social History Smoking and tobacco status: former smoker Quit status (tobacco): has quit using tobacco Year quit tobacco: 2017 - PPD x 65 Years Second hand smoke exposure: No Smoking risk assessment/counseling performed?: Yes Alcohol intake: never Desire information about alcohol rehabilitation?: No Counseling given: No Desire information about substance/drug rehabilitation?: No Counseling given: No Adopted: No Caregiver/support person: No Lives independently: Yes Household members: none Housing: House Marital status: / service: No Current occupational status: retired Pets and animals: No History of recent travel: No (Moved here from [place] in November 2019) Current gender identity: Female Physical Exam Const: COMMON NORMALS: no limitations, alert and well nourished EXAM LIMITATIONS: no altered mental status HENMT: COMMON NORMALS: normocephalic, atraumatic and external ears normal H EAD & SCALP: normocephalic and atraumatic EXTERNAL EAR: Yes external ears normal MOUTH: no muffled voice Eye: COMMON NORMALS: EOMs intact bilaterally and conjunctivae normal CONJUNCTIVA: Yes conjunctivae normal Neck/C-Spine: COMMON NORMALS: no JVD GENERAL: Yes normal visual inspection and Yes trachea midline Chest: CHEST: Yes Symmetrical chest wall rise, No crepitus, No localized rib tenderness with anteroposterior compression, Yes tenderness, No abrasion and No Ecchymosis present Cardio: COMMON NORMALS: no JVD and regular rhythm RATE: tachycardic RHYTHM: regular rhythm PERIPHERAL PULSES: radial pulses present GI: COMMON NORMALS: Soft to palpation INSPECTION: Yes normal to inspection PALPATION: Yes Soft to palpation and Yes Tenderness to palpation present (GI) Details: LUQ Extremity: COMMON NORMALS: normal to inspection Neuro: COMMON NORMALS: moves all extremities, no focal motor deficits and no sensory deficits noted SENSORIUM/ORIENTATION: Yes alert Psych: COMMON NORMALS: mental status grossly normal, Normal thought process present, cooperative, normal affect and speech normal SPEECH: Yes normal speech THOUGHT PROCESS: Normal thought process present Skin: COMMON NORMALS: no rashes or lesions noted, turgor normal and no jaundice GENERAL SKIN EXAM: no rashes or lesions noted and turgor normal Course Vital Signs: Vital signs: Vital Signs Temperature 98.2 F 05/11/22 17:41 Pulse Rate 70 09/24/21 22:04 Respiratory Rate 22 H 09/24/21 22:04 Blood Pressure 146/76 09/24/21 22:04 Pulse Oximetry 94 09/24/21 22:04 MDM - Chest Pain Medical Decision Making 81-year-old female with reproducible chest wall tenderness and mild left upper quadrant tenderness. She does have a history of diverticulitis. She has a hi story of pancreatic ductal abnormality that has been followed through the years. Patient does have some symptoms of COPD including wheezing, increased cough, increased yellow sputum production, and her work of breathing is slightly increased which may cause the chest wall pain. Low suspicion for pulmonary embolism Chest x-ray does not show any focal infiltrates, effusions, pneumothorax, or other acute pathologies. CT scan of the abdomen pelvis was performed to evaluate for any pancreatic mass es, edema, pseudocyst, necrosis, etc. Fortunately, this did not show any new abnormalities. Patient is aware of the areas of stenosis and also dilatation in her pancreatic duct. We discussed this and she will continue to follow. She does not have any signs of acute pancreatitis on CT imaging. Her lipase is only minimally elevated here not reaching clinical criteria for pancreatitis. Patient's presentation not consistent with acute coronary syndrome. I suspect that she has COPD exacerbation with chest wall pain from her increased work of breathing. I discussed with patient and family. Plan to put on doxycycline, prednisone, and provide a spacer. The patient has been using albuterol MDI but I watched her use it and it is not being used effectively. She also has maintenance inhalers at home. I have refilled albuterol for her nebulizer, provided a spacer. Family is going to watch and make sure that she is improving. Return precautions given. Lab Data : 09/24/21 18:00 09/24/21 18:00 Radiology Impressions Chest X-Ray 09/24/21 17:45 IMPRESSION: No acute findings. Abdomen/Pelvis CT 09/24/21 19:29 IMPRESSION: Sequela of chronic pancreatitis including irregular stricturing and dilation of the pancreatic duct and diffuse coarse calcifications. No acute inflammatory changes seen around the pancreas. COMMENTS: Consistent with the [employer]'s Incidental Findings Committee white paper (J Am Lonnie Radiol 2018): Any incidental renal lesion less than 1 cm or classified as too small to characterize, or any incidental cystic renal lesion characterized as simple-appearing, is likely benign. No follow-up imaging is recommended for these lesions per consensus recommendations based on imaging criteria. Laboratory Results WBC 12.8 10^3/uL (4.0-10.0) H 09/24/21 18:00 RBC 4.43 10^6/uL (4.1-5.3) 09/24/21 18:00 Hgb 11.2 g/dL (11.5-15.3) L 09/24/21 18:00 Hct 35.7 % (37.0-47.0) L 09/24/21 18:00 MCV 80.6 fl (81-99) L 09/24/21 18:00 MCH 25.3 pg (28.0-34.0) L 09/24/21 18:00 MCHC 31.4 g/dL (30.0-36.0) 09/24/21 18:00 RDW 15.9 % (12.1-15.1) H 09/24/21 18:00 Plt Count 289 10^3/cmm (130-400) 09/24/21 18:00 MPV 10.0 fL (7.4-10.4) 09/24/21 18:00 Neut % (Auto) 62.8 % 09/24/21 18:00 Lymph % (Auto) 28.1 % 09/24/21 18:00 [place] % (Auto) 8.1 % 09/24/21 18:00 Eos % (Auto) 0.2 % 09/24/21 18:00 Baso % (Auto) 0.2 % 09/24/21 18:00 Neut # (Auto) 8.03 10^3/uL (1.8-7.7) H 09/24/21 18:00 Lymph # (Auto) 3.6 10^3/uL (0.8-4.8) 09/24/21 18:00 [place] # (Auto) 1.0 10^3/uL (0.2-0.9) H 09/24/21 18:00 Eos # (Auto) 0.0 10^3/uL (0.0-0.8) 09/24/21 18:00 Baso # (Auto) 0.0 10^3/uL (0.0-0.1) 09/24/21 18:00 Nucleated RBC % (auto) 0 % 09/24/21 18:00 Nucleated RBCs # 0.0 /100WBC 09/24/21 18:00 Sodium 131 mmol/L (136-145) L 09/24/21 18:00 Potassium 4.0 mmol/L (3.5-5.1) 09/24/21 18:00 Chloride 96 mmol/L (98-107) L 09/24/21 18:00 Carbon Dioxide 22 mmol/L (22-29) 09/24/21 18:00 Anion Gap 17.0 (5-19) 09/24/21 18:00 BUN 10 mg/dL (8-23) 09/24/21 18:00 Creatinine 0.9 mg/dL (0.5-0.9) 09/24/21 18:00 GFR Calculation Not Reportable 09/24/21 18:00 Glucose 167 mg/dL (65-115) H 09/24/21 18:00 Calculated Osmolality 275 mOsm/kg (285-295) L 09/24/21 18:00 Calcium 8.9 mg/dL (8.5-10.5) 09/24/21 18:00 Total Bilirubin 0.7 mg/dL (0.15-1.2) 09/24/21 18:00 AST 13 U/L (0-32) 09/24/21 18:00 ALT 14 U/L (0-33) 09/24/21 18:00 Alkaline Phosphatase 124 IU/L (35-105) H 09/24/21 18:00 Troponin T Baseline 11 ng/L (0-10) H 09/24/21 18:00 Troponin T 120 Minute 11.74 ng/L (0-10) H 09/24/21 20:30 Delta Troponin T 0.74 ABS# (0-10) 09/24/21 20:30 NT-Pro-B Natriuret Pep 489 pg/mL (0-450) H 09/24/21 18:00 Total Protein 8.1 g/dL (6.6-8.7) 09/24/21 18:00 Albumin 3.9 g/dL (3.5-5.2) 09/24/21 18:00 Globulin 4.2 g/dL (1.3-4.6) 09/24/21 18:00 Lipase 98 U/L (13-60) H 09/24/21 18:00 Discharge Plan Discharge Patient Disposition: Home Clinical Impression: COPD with acute exacerbation, Atypical chest pain, Abnormality of pancreatic duct Condition: Stable Prescriptions: New prednisone 20 mg tablet 20 mg PO BID 5 Days Qty: 10 0RF doxycycline hyclate 100 mg capsule 100 mg PO BID 10 Days Qty: 20 0RF (DME) Space Chamber Spacer See Rx Instructions .ROUTE Qty: 1 0RF Rx Instructions: As directed albuterol sulfate 2.5 mg/0.5 mL solution for nebulization 2.5 mg inhalation QID PRN (Reason: shortness of breath or wheezing) Qty: 30 0RF No Action apple cider vinegar 300 mg tablet 450 mg PO .one tablet bid 0RF cinnamon bark [Cinnamon] 500 mg capsule 500 mg PO BID 0RF nitroglycerin 0.4 mg tablet, sublingual 0.4 mg sublingual Q5M PRN (Reason: chest pain) 30 Days Qty: 30 3RF Rx Instructions: until response; do not exceed 3 doses per episode azelastine 137 mcg (0.1 %) aerosol,spray 137 mcg intranasal BID 0RF atorvastatin 40 mg tablet 40 mg PO DAILY Qty: 90 1RF mupirocin 2 % ointment 1 applic topical BID Qty: 22 0RF cholecalciferol (vitamin D3) 25 mcg (1,000 unit) capsule 25 mcg PO DAILY Qty: 30 0RF lansoprazole [Prevacid] 30 mg capsule,delayed release(DR/EC) 30 mg PO BID PRN (Reason: Pain) 0RF Pancreaze 21,000-54,700- 83,900 unit capsule,delayed release(DR/EC) 1 cap PO QID 0RF Rx Instructions: 16-20 capsules administer with meals and/or snacks metoprolol tartrate 25 mg tablet 25 mg PO TID 0RF zoledronic acid 4 mg recon soln 5 mg IV .[id number] Qty: 1 0RF Rx Instructions: will get the infusion at the GI lab clopidogrel [Plavix] 75 mg tablet 75 mg PO DAILY 90 Days Qty: 90 3RF furosemide 40 mg tablet 40 mg PO DAILY PRN (Reason: edema) Qty: 90 3RF potassium chloride 10 mEq capsule, extended release 20 meq PO DAILY Qty: 90 3RF diltiazem HCl 60 mg tablet 60 mg PO TID Qty: 270 3RF isosorbide mononitrate 120 mg tablet extended release 24 hr 120 mg PO DAILY Qty: 90 3RF albuterol sulfate [ProAir HFA] 90 mcg/actuation HFA aerosol inhaler 2 puff inhalation Q6H PRN (Reason: shortness of breath or wheezing) Qty: 8.5 5RF Rx Instructions: 340B (DME) Innospire Go Nebulizer Misc See Rx Instructions .Route Qty: 1 0RF Rx Instructions: As directed ambrisentan [Letairis] 10 mg tablet 10 mg PO DAILY Qty: 30 11RF Rx Instructions: do not break, crush, or chew tablet(s) (DME) Contour Test Strips Strip See Rx Instructions .Route Qty: 400 3RF Rx Instructions: Check BS 4 times a day. Levemir FlexTouch U-100 Insuln 100 unit/mL (3 mL) insulin pen 46 unit SUBCUT DAILY Qty: 30 3RF Rx Instructions: 340b program insulin aspart U-100 [Novolog Flexpen U-100 Insulin] 100 unit/mL (3 mL) insulin pen 4 unit SUBCUT TID Qty: 15 3RF lisinopril 40 mg tablet 40 mg PO DAILY Qty: 90 3RF Yupelri 175 mcg/3 mL solution for nebulization 175 mcg inhalation DAILY Qty: 90 3RF Perforomist 20 mcg/2 mL solution for nebulization 2 ml inhalation BID Qty: 120 3RF budesonide [Pulmicort] 1 mg/2 mL suspension for nebulization 0.5 mg inhalation Q12H Qty: 120 5RF vrqhuunp-bcuutikmg-DU 3.5-10,000-1 mg/mL-unit/mL-% drops,suspension 4 drop EAR-BOTH TID PRN (Reason: Pain) 0RF Discharge Orders: Discharge ED (Routine); Ordered 09/24/21 Ordered By: Dimitrios Jett Referrals: Solo Mendenhall, [id number] [Primary Care Provider] - Patient Instructions: Opioid Safety Coding Level of Care Code ED Hall Clerk for Chg Fwd Exam Comprehensive
[2021-09-24] MEDS: lidocaine 2% viscous 15 ML, aluminum-mag hydrox-simethicon 30 ML, sucralfate oral liq 1 GM PO (20:25)
[2021-09-24 21:03] LABS: Troponin 5 2HR 11.74 ng/L (0-10)
[2021-09-24 21:05] LABS: Troponin 5 2HR Delta 0.74 ABS# (0-10)
[2021-09-24] MEDS: doxycycline 100 mg Tablet PO (21:53)
--- NOTE | 2021-09-24 23:45 | ECG_ITS ---
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 Measurements Intervals [place] Rate: 105 P: 81 NM: 123 QRS: 48 QRSD: 89 T: 45 QT: 321 QTc: 425 Interpretive Statements SINUS TACHYCARDIA ABNORMAL RHYTHM ECG No previous ECG available for comparison Electronically Signed On 09-24-2021 22:49:13 CDT by Greer Harman M.D. [email or web address]
== END 2021-09-24 22:06 | disposition home or self-care (01) ==
PROVIDERS: Emergency Provider Emergency Medicine; PCP Nurse Practitioner
DX: J44.1 Chronic obstructive pulmonary disease with (acute) exacerbation (principal); Z87.891 Personal history of nicotine dependence; R07.89 Other chest pain; K86.89 Other specified diseases of pancreas; Z79.02 Long term (current) use of antithrombotics/antiplatelets; Z79.51 Long term (current) use of inhaled steroids; Z79.4 Long term (current) use of insulin
CPT/HCPCS: 71045; 74177; 80053; 83690; 83880; 84484; 85025; 93005; 96374; 96375; 96376; 99285; J1170; J2405; J2930; Q9967

== ENCOUNTER → 2021-09-30 09:26 | Outpatient (BNVA) | payer MEDICARE, OTHER, SELFPAY | PROVIDERS: PCP Nurse Practitioner; Visit Provider Nurse Practitioner | DX: E78.5 Hyperlipidemia, unspecified (principal) | CPT/HCPCS: 80061 ==

== ENCOUNTER → 2021-10-14 08:05 | Outpatient (BNVA) | payer MEDICARE, OTHER, SELFPAY | PROVIDERS: PCP Nurse Practitioner; Visit Provider Internal Medicine | DX: E11.69 Type 2 diabetes mellitus with other specified complication (principal); I50.9 Heart failure, unspecified; E55.9 Vitamin D deficiency, unspecified; R79.89 Other specified abnormal findings of blood chemistry; K86.9 Disease of pancreas, unspecified; K86.1 Other chronic pancreatitis; E67.3 Hypervitaminosis D; M81.0 Age-related osteoporosis without current pathological fracture; E03.9 Hypothyroidism, unspecified; E78.5 Hyperlipidemia, unspecified; E16.0 Drug-induced hypoglycemia without coma; T38.3X5A Adverse effect of insulin and oral hypoglycemic [antidiabetic] drugs, initial encounter; Z79.4 Long term (current) use of insulin; Z87.891 Personal history of nicotine dependence | CPT/HCPCS: 99214 ==

== ENCOUNTER → 2021-10-21 11:43 | Outpatient (BNVA) | payer MEDICARE, OTHER, SELFPAY | PROVIDERS: PCP Nurse Practitioner; Visit Provider Internal Medicine Cardiovascular Disease | DX: I73.9 Peripheral vascular disease, unspecified (principal); R07.89 Other chest pain; E11.69 Type 2 diabetes mellitus with other specified complication; K86.9 Disease of pancreas, unspecified; G47.33 Obstructive sleep apnea (adult) (pediatric); I27.20 Pulmonary hypertension, unspecified; I48.20 Chronic atrial fibrillation, unspecified; I25.10 Atherosclerotic heart disease of native coronary artery without angina pectoris; I11.0 Hypertensive heart disease with heart failure; I50.9 Heart failure, unspecified; E78.5 Hyperlipidemia, unspecified; J44.9 Chronic obstructive pulmonary disease, unspecified; Z87.891 Personal history of nicotine dependence; Z79.4 Long term (current) use of insulin | CPT/HCPCS: 99213; 99214 ==

== ENCOUNTER → 2021-11-10 08:25 | Outpatient (BNVA) | payer MEDICARE, OTHER, SELFPAY | PROVIDERS: PCP Nurse Practitioner; Visit Provider Internal Medicine Pulmonary Disease | DX: J44.9 Chronic obstructive pulmonary disease, unspecified (principal); R06.02 Shortness of breath; G47.33 Obstructive sleep apnea (adult) (pediatric); I27.20 Pulmonary hypertension, unspecified; I50.9 Heart failure, unspecified; Z87.891 Personal history of nicotine dependence; E11.8 Type 2 diabetes mellitus with unspecified complications; E78.5 Hyperlipidemia, unspecified; Z79.4 Long term (current) use of insulin | CPT/HCPCS: 82785; 85025; 86003; 99214 ==

== ENCOUNTER → 2021-11-21 09:18 | Outpatient (BNVA) | payer MEDICARE, OTHER, SELFPAY | PROVIDERS: PCP Nurse Practitioner; Visit Provider Internal Medicine | DX: E11.65 Type 2 diabetes mellitus with hyperglycemia (principal); E16.0 Drug-induced hypoglycemia without coma; T38.3X5A Adverse effect of insulin and oral hypoglycemic [antidiabetic] drugs, initial encounter; Z79.4 Long term (current) use of insulin | CPT/HCPCS: G0463 ==

== ENCOUNTER → 2021-12-16 07:56 | Outpatient (BNVA) | payer MEDICARE, OTHER, SELFPAY | PROVIDERS: PCP Nurse Practitioner; Visit Provider Internal Medicine | DX: E11.649 Type 2 diabetes mellitus with hypoglycemia without coma (principal); Z79.4 Long term (current) use of insulin; Z87.891 Personal history of nicotine dependence; M81.0 Age-related osteoporosis without current pathological fracture; E11.69 Type 2 diabetes mellitus with other specified complication; K86.9 Disease of pancreas, unspecified; K86.1 Other chronic pancreatitis; E67.3 Hypervitaminosis D; E03.9 Hypothyroidism, unspecified; E78.5 Hyperlipidemia, unspecified; E16.0 Drug-induced hypoglycemia without coma; T38.3X5A Adverse effect of insulin and oral hypoglycemic [antidiabetic] drugs, initial encounter | CPT/HCPCS: 99215 ==

== ENCOUNTER → 2021-12-25 10:18 | Day surgery (SDC) | payer MEDICARE, OTHER, SELFPAY ==
[2021-12-25 10:44] VITALS: BP 122/64; PULSE 74; RESP 18; TEMP 36.5; O2SAT 90
[2021-12-25 11:12] LABS: Blood Urea Nitrogen 7 mg/dL (8-23); Calcium 8.7 mg/dL (8.5-10.5)
--- NOTE | 2021-12-25 11:38 | PC.NURSE ---
Pt to GI lab for Reclast infusion. Calcium level 8.7. Creatnine clearance 87. Infusion given as ordered.
== END ==
PROVIDERS: PCP Nurse Practitioner; Visit Provider Internal Medicine
DX: M81.0 Age-related osteoporosis without current pathological fracture (principal)
CPT/HCPCS: 36415; 82310; 82565; 84520; 96365; J3489

== ENCOUNTER 2022-01-08 12:37 | Outpatient (CLI) | payer MEDICARE, OTHER, SELFPAY ==
--- NOTE | 2022-01-08 14:29 | PFTS_ITS ---
Date of Study:01/08/22 Date of Dictation: MECHANICS: Forced vital capacity (FVC) is . Forced expiratory volume in one second (FEV1) is . FEV1/FVC is . FLOW VOLUME LOOP: . LUNG VOLUMES: Total lung capacity (TLC) is . Residual volume (RV) is . DIFFUSING CAPACITY FOR CARBON MONOXIDE: . INTERPRETATION: The pulmonary function tests are . mechanics and lung volumes. Gas exchange (DLCO) is . MTDD
== END 2022-01-08 12:38 | disposition home or self-care (01) ==
LOC: RT 12:38
PROVIDERS: PCP Nurse Practitioner; Visit Provider Internal Medicine Pulmonary Disease
DX: J44.9 Chronic obstructive pulmonary disease, unspecified (principal); I27.20 Pulmonary hypertension, unspecified
CPT/HCPCS: 94060; 94726; 94729; J7611

== ENCOUNTER 2022-01-08 12:37 | Outpatient (CLI) | payer MEDICARE, OTHER, SELFPAY ==
--- NOTE | 2022-01-08 14:00 | XR_ITS ---
WS: [id number] SCREENING DEXA SCAN ScreenTag CLINICAL INFORMATION: osteoporosis COMPARISON: 2019 FINDINGS: The LEFT forearm bone mineral density measures 0.61. This corresponds to a T score score of -3.0 and Z score of -0.2. Left femoral neck bone mineral density measures 0.754 (g/cm2). This corresponds to a T score of -2.0 (no units) and Z score of -0.1 (no units). 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 Osteopenia LEFT femoral neck. Patient's FRAX calculated 10 year probability for major osteoporotic fracture i s 32.2 % and osteoporotic hip fracture is 11.3%. Bone mineral density in the LEFT femur has increased 0.5% since 2019. Bone mineral density in the LEFT forearm has decreased -2.2% since 2020.
== END 2022-01-08 12:38 | disposition home or self-care (01) ==
LOC: RT 12:38 → RAD 14:30
PROVIDERS: PCP Nurse Practitioner; Visit Provider Internal Medicine Pulmonary Disease
DX: M81.0 Age-related osteoporosis without current pathological fracture (principal)
CPT/HCPCS: 77080; 99215

== ENCOUNTER → 2022-01-20 10:06 | Outpatient (BNVA) | payer MEDICARE, OTHER, SELFPAY | PROVIDERS: PCP Nurse Practitioner; Visit Provider Internal Medicine | DX: E11.69 Type 2 diabetes mellitus with other specified complication (principal); E11.649 Type 2 diabetes mellitus with hypoglycemia without coma; K86.9 Disease of pancreas, unspecified; K86.1 Other chronic pancreatitis; E67.3 Hypervitaminosis D; M81.0 Age-related osteoporosis without current pathological fracture; E03.9 Hypothyroidism, unspecified; E78.5 Hyperlipidemia, unspecified; E16.0 Drug-induced hypoglycemia without coma; T38.3X5A Adverse effect of insulin and oral hypoglycemic [antidiabetic] drugs, initial encounter; Z79.4 Long term (current) use of insulin | CPT/HCPCS: 99215 ==

== ENCOUNTER → 2022-01-30 08:54 | Outpatient (BNVA) | payer MEDICARE, OTHER, SELFPAY | PROVIDERS: PCP Nurse Practitioner; Visit Provider Internal Medicine Cardiovascular Disease | DX: R07.89 Other chest pain (principal); E16.0 Drug-induced hypoglycemia without coma; E11.69 Type 2 diabetes mellitus with other specified complication; K86.9 Disease of pancreas, unspecified; Z79.4 Long term (current) use of insulin; G47.33 Obstructive sleep apnea (adult) (pediatric); I48.20 Chronic atrial fibrillation, unspecified; I27.20 Pulmonary hypertension, unspecified; Z95.818 Presence of other cardiac implants and grafts; R55 Syncope and collapse; I50.9 Heart failure, unspecified; E78.5 Hyperlipidemia, unspecified; J44.9 Chronic obstructive pulmonary disease, unspecified; I73.9 Peripheral vascular disease, unspecified; Z87.891 Personal history of nicotine dependence | CPT/HCPCS: 99213; 99214 ==

== ENCOUNTER → 2022-03-30 09:33 | Outpatient (BNVA) | payer MEDICARE, OTHER, SELFPAY | PROVIDERS: PCP Nurse Practitioner; Visit Provider Internal Medicine | DX: I50.9 Heart failure, unspecified (principal); E55.9 Vitamin D deficiency, unspecified; R79.89 Other specified abnormal findings of blood chemistry; E11.69 Type 2 diabetes mellitus with other specified complication; K86.9 Disease of pancreas, unspecified | CPT/HCPCS: 82306; 83036; 84443 ==

== ENCOUNTER → 2022-04-02 10:01 | Outpatient (BNVA) | payer MEDICARE, OTHER, SELFPAY | PROVIDERS: PCP Nurse Practitioner; Visit Provider Internal Medicine | DX: E11.649 Type 2 diabetes mellitus with hypoglycemia without coma (principal); E11.69 Type 2 diabetes mellitus with other specified complication; R79.89 Other specified abnormal findings of blood chemistry; E03.9 Hypothyroidism, unspecified; K86.9 Disease of pancreas, unspecified; I50.9 Heart failure, unspecified; K86.1 Other chronic pancreatitis; E67.3 Hypervitaminosis D; M81.0 Age-related osteoporosis without current pathological fracture; E78.5 Hyperlipidemia, unspecified; E16.0 Drug-induced hypoglycemia without coma; T38.3X5A Adverse effect of insulin and oral hypoglycemic [antidiabetic] drugs, initial encounter; Z79.4 Long term (current) use of insulin; Z87.891 Personal history of nicotine dependence | CPT/HCPCS: 99214 ==

== ENCOUNTER 2022-05-20 10:02 | Outpatient (CLI) | payer MEDICARE, OTHER, SELFPAY ==
--- NOTE | 2022-05-20 10:09 | MM_ITS ---
WS: [id number] Bilateral screening 3D tomosynthesis digital mammogram, 05/20/2022 Clinical Data: SCREENING Comparison: 04/08/2021, 03/27/2020, 01/10/2019, 01/19/2018, 01/04/2017. Findings: The breast parenchymal pattern shows fibroglandular tissue. No spiculated masses or clustered calcifi cations are seen. There are no secondary signs of carcinoma. There is a loop recorder overlying the l eft breast. MM/[place] [id number] Impression: 1. Negative bilateral mammogram unchanged. 2. Recommend annual screening mammograms. BIRADS: 1-Negative FOLLOW UP: 1 Year Follow-up The CAD dry cleaning checker was used.
== END 2022-05-20 10:03 | disposition home or self-care (01) ==
LOC: RAD 10:03
PROVIDERS: PCP Nurse Practitioner; Visit Provider Nurse Practitioner
DX: Z12.31 Encounter for screening mammogram for malignant neoplasm of breast (principal)
CPT/HCPCS: 77063; 77067

== ENCOUNTER → 2022-06-23 11:45 | Outpatient (BNVA) | payer MEDICARE, OTHER, SELFPAY | PROVIDERS: PCP Nurse Practitioner; Visit Provider Internal Medicine Pulmonary Disease | DX: R06.02 Shortness of breath (principal); J44.9 Chronic obstructive pulmonary disease, unspecified; G47.33 Obstructive sleep apnea (adult) (pediatric); I50.9 Heart failure, unspecified; Z87.891 Personal history of nicotine dependence; I27.23 Pulmonary hypertension due to lung diseases and hypoxia | CPT/HCPCS: 99214 ==

== ENCOUNTER → 2022-07-02 10:21 | Outpatient (BNVA) | payer MEDICARE, OTHER, SELFPAY | PROVIDERS: PCP Nurse Practitioner; Visit Provider Internal Medicine | DX: E11.69 Type 2 diabetes mellitus with other specified complication (principal); E16.0 Drug-induced hypoglycemia without coma; K86.9 Disease of pancreas, unspecified; T38.3X5A Adverse effect of insulin and oral hypoglycemic [antidiabetic] drugs, initial encounter; E03.9 Hypothyroidism, unspecified; K86.1 Other chronic pancreatitis; E67.3 Hypervitaminosis D; M81.0 Age-related osteoporosis without current pathological fracture; E78.5 Hyperlipidemia, unspecified; Z79.4 Long term (current) use of insulin | CPT/HCPCS: 99214 ==

== ENCOUNTER 2022-07-20 12:40 | Outpatient (CLI) | payer MEDICARE, OTHER, SELFPAY ==
--- NOTE | 2022-07-20 13:45 | USCV_ITS ---
Mireille Kaur Age: 82 Gender: F : 1940 Exam Date: 07/20/2022 13:55 Ordering Phys: Farhad Rob MD Technologist: Jovani Rob Exam Location: [facility] – [place] Indication: check pulmonart arter pressures BP: 131 / 75 HR: 79 Rhythm: Sinus Technical Quality: Adequate MEASUREMENTS (Male / Female) Normal Values 2D ECHO LV Diastolic Diameter PLAX 3.5 cm 4.2 - 5.9 / 3.9 - 5.3 cm LV Systolic Diameter PLAX 1.9 cm IVS Diastolic Thickness 0.8 cm 0.6 - 1.0 / 0.6 - 0.9 cm IVS Systolic Thickness 1.0 cm LVPW Diastolic Thickness 1.5 cm 0.6 - 1.0 / 0.6 - 0.9 cm LVPW Systolic Thickness 1.9 cm LVOT Diameter 2.0 cm LV Ejection Fraction 2D Teich 78.8 % LV Ejection Fraction MOD 2C 70.5 % LV Ejection Fraction 2C AL 70.3 % LA Diameter 3.1 cm LA Width 3.4 cm LA Height 4.2 cm RA Width 3.2 cm RA Height 3.3 cm Aorta at Sinotubular Diameter 2.1 cm IVC Diameter 1.3 cm M-MODE Aortic Annulus Diameter 2.3 cm LA Ao Ratio MM 1.3 MV E Point Septal Separation 0.6 cm DOPPLER AV Peak Velocity 218.8 cm/s LVOT Peak Velocity 104.0 cm/s AV Area Cont Eq vti 1.6 cm squared AV Area Cont Eq pk 1.5 cm squared MV Peak Velocity 129.0 cm/s MV Area PHT 4.8 cm squared Mitral E to A Ratio 0.9 MV E' Velocity 42.5 cm/s Mitral E to MV E' Ratio 7.7 Mitral E to LV E' Lateral Ratio 6.0 Mitral E to LV E' Septal Ratio 10.7 TR Peak Velocity 212.7 cm/s TR Peak Gradient 18.1 mmHg TR Mean Velocity 164.6 cm/s TR Mean Gradient 11.8 mmHg TR Velocity Time Integral 49.5 cm Right Atrial Pressure 3.0 mmHg Pulmonary Artery Systolic Pressu 21.1 mmHg PV Peak Velocity 113.0 cm/s RV Acceleration Time 0.1 s RV Ejection Time 0.3 s RV AcT/ET 0.5 FINDINGS Left Ventricle Normal left ventricular size, systolic function and wall thickness, with no regional wall motion abnormalities. Grade I/IV diastolic dysfunction (abnormal relaxation filling pattern), normal to mildly elevated filling pressures. Left ventricular ejection fraction is estimated at 65 %. Right Ventricle Normal right ventricular size and systolic function. Normal right ventricular systolic pressure. Right Atrium The right atrium is normal in size. Left Atrium The left atrium is normal in size. Mitral Valve Structurally normal mitral valve. Mild-moderate mitral valve regurgitation. Aortic Valve Structurally normal aortic valve without significant sclerosis or stenosis. There is no aortic regurgitation. Tricuspid Valve Structurally normal tricuspid valve without significant stenosis or regurgitation. Pulmonary artery systolic pressure is normal. Pulmonic Valve Pulmonic valve not well visualized. Pericardium Normal pericardium without effusion. Aorta Normal ascending aorta dimension. IVC The inferior vena cava appears normal. CONCLUSIONS Normal left ventricular size, systolic function and wall thickness, with no regional wall motion abnormalities. Grade I/IV diastolic dysfunction (abnormal relaxation filling pattern), normal to mildly elevated filling pressures. Left ventricular ejection fraction is estimated at 65 %. Structurally normal mitral valve. Mild-moderate mitral valve regurgitation. There is no change from the previous study done 1 year ago. The pulmonary artery pressure on this study is normal. Dr. Goevani Scanlon MD (Electronically Signed) Final Date: 20 July 2022 16:45 S
== END 2022-07-20 12:41 | disposition home or self-care (01) ==
PROVIDERS: PCP Nurse Practitioner; Visit Provider Internal Medicine Pulmonary Disease
DX: I27.20 Pulmonary hypertension, unspecified (principal); I34.0 Nonrheumatic mitral (valve) insufficiency
CPT/HCPCS: 93306

== ENCOUNTER → 2022-07-30 15:25 | Outpatient (BNVA) | payer MEDICARE, OTHER, SELFPAY | PROVIDERS: PCP Nurse Practitioner; Visit Provider Internal Medicine Cardiovascular Disease | DX: I25.10 Atherosclerotic heart disease of native coronary artery without angina pectoris (principal); I48.20 Chronic atrial fibrillation, unspecified; Z95.818 Presence of other cardiac implants and grafts; G47.33 Obstructive sleep apnea (adult) (pediatric); I27.20 Pulmonary hypertension, unspecified; I50.32 Chronic diastolic (congestive) heart failure; Z87.891 Personal history of nicotine dependence | CPT/HCPCS: 36415; 80048; 83880; 99214 ==

== ENCOUNTER → 2022-09-25 08:47 | Outpatient (BNVA) | payer MEDICARE, OTHER, SELFPAY | PROVIDERS: PCP Nurse Practitioner; Visit Provider Internal Medicine | DX: E11.69 Type 2 diabetes mellitus with other specified complication (principal); E16.0 Drug-induced hypoglycemia without coma; K86.9 Disease of pancreas, unspecified; T38.3X5A Adverse effect of insulin and oral hypoglycemic [antidiabetic] drugs, initial encounter; E11.65 Type 2 diabetes mellitus with hyperglycemia | CPT/HCPCS: 80053; 80061; 82043; 83036 ==

== ENCOUNTER → 2022-10-05 10:57 | Outpatient (BNVA) | payer MEDICARE, OTHER, SELFPAY | PROVIDERS: PCP Nurse Practitioner; Visit Provider Internal Medicine | DX: E11.40 Type 2 diabetes mellitus with diabetic neuropathy, unspecified (principal); E11.69 Type 2 diabetes mellitus with other specified complication; E11.610 Type 2 diabetes mellitus with diabetic neuropathic arthropathy; E03.9 Hypothyroidism, unspecified; K86.9 Disease of pancreas, unspecified; K86.1 Other chronic pancreatitis; E67.3 Hypervitaminosis D; M81.0 Age-related osteoporosis without current pathological fracture; E78.5 Hyperlipidemia, unspecified; W19.XXXA Unspecified fall, initial encounter; Z79.4 Long term (current) use of insulin | CPT/HCPCS: 99215 ==

== ENCOUNTER 2022-10-05 11:55 | Emergency (ER) | payer MEDICARE, OTHER, SELFPAY ==
[2022-10-05 12:02] VITALS: BP 144/85; PULSE 75; RESP 18; TEMP 36.7; O2SAT 94; BMI 28.3
[2022-10-05 12:08] LABS: Glucose Point of Care 429 mg/dL (70-110)
--- NOTE | 2022-10-05 13:19 | XRR_ITS ---
PROCEDURE INFORMATION: Exam: XR Left Shoulder Exam date and time: 10/05/2022 1:32 PM Age: 82 years old Clinical indication: Injury or trauma; Fall; Blunt trauma (contusions or hematomas); Shoulder; Left; Additional info: Fall pain TECHNIQUE: Imaging protocol: Radiologic exam of the left shoulder. Views: 2 or more views. COMPARISON: CR (CHEST, ) 09/24/2021 6:22 PM FINDINGS: Bones/joints: No fracture or dislocation is seen about the left shoulder. No abnormal widening or separation of the AC joint. Ojam-cq-[id number] degenerative change. Soft tissues: Unremarkable. XR/XR shoulder LT min 2V* [id number] IMPRESSION: Degenerative change and without fracture or dislocation.
--- NOTE | 2022-10-05 13:20 | ED_ITS ---
HPI - Fall General: Chief Complaint: Fall Stated Complaint: Left side pain, fall Time Seen by Provider: 10/05/22 12:35 History of Present Illness: Patient presents today to the ER with complaints of left shoulder pain and left knee pain post fall. Patient stepped off a curb and fell landed on her left shoulder. Patient is able to walk on her leg with no pain with ambulation. Patient has limited range of motion with her left shoulder due to pain. In ER patient's blood sugar monitor went off and alerted that her blood sugar was high. Patient states her blood sugar runs anywhere between 50 and 500. Patient is on insulin MD complaint: fall Onset (ago): minute(s) (Just prior to arrival) Fall from: standing Fall witnessed: yes, by family Loss of consciousness: None Symptoms prior to fall: none Context: tripped/slipped Location of injury: other (Left shoulder left knee) Severity: mild Quality: aching Associated symptoms-after fall: Denies abdominal pain, chest pain or neck pain Review of Systems General: Reports: 10 or more systems reviewed and unremarkable except in HPI and below Const: Denies: fever(s) or chills Eyes: Denies: change in vision or photophobia ENMT: Denies: throat pain or odynophagia Card: Denies: chest pain or edema Resp: Denies: dyspnea or non-productive cough GI: Denies: abdominal pain, nausea, vomiting or hematemesis : Denies: flank pain, difficulty voiding or dysuria Musc: Reports: extremity pain and joint pain; Denies: neck pain PFS ED PFSH: Medical History Appendicitis, acute Atherosclerotic heart disease of [place] coronary artery without angina pectoris Patient had the cardiac catheterization in [place], in 2014. At that time, she was found to have mild diffuse coronary artery disease. Atypical chest pain Cataract Chronic episodic atrial fibrillation Chronic pancreatitis Congestive heart failure COPD (chronic obstructive pulmonary disease) Diabetes mellitus associated with pancreatic disease Dyslipidemia Peripheral vascular disease Recurrent syncope EKG from today 01/16/2020- revealed normal sinus rhythm with early repolarization changes in the inferolateral leads. No acute ST-T changes are noted. Normal [place] interval with nonspecific intraventricular conduction delay Rotator cuff arthropathy Status post placement of implantable loop recorder Vitamin D deficiency Surgical History Hip joint replacement by other means History of appendectomy History of back surgery History of nasal surgery Hx of hysterectomy, total Hx of toe surgery Family History Brother Bleeding disorder Clotting disorder CAD (coronary artery disease) Stroke Father CAD (coronary artery disease) Cancer Chronic kidney disease (CKD) Sister CAD (coronary artery disease) Cancer Lung disease Diabetes Grandmother Cancer Grandfather CAD (coronary artery disease) Other Hypertension Denies family history of Dementia Suicide Anesthesia complication Social History Smoking and tobacco status: former smoker Quit status (tobacco): has quit using tobacco Year quit tobacco: 2016 - PPD x 65 Years Second hand smoke exposure: No Smoking risk assessment/counseling performed?: Yes Alcohol intake: never Desire information about alcohol rehabilitation?: No Counseling given: No Substance/Drug Use: never Desire information about substance/drug rehabilitation?: No Counseling given: No Adopted: No Caregiver/support person: No Lives independently: Yes Household members: none Housing: House Marital status: / service: No Current occupational status: retired Pets and animals: No Do you think of yourself as: Straight/Heterosexual Current gender identity: Female Physical Exam Const: COMMON NORMALS: no acute distress, average body habitus, patient oriented x3, no limitations, healthy appearing, alert and well nourished HENMT: COMMON NORMALS: normocephalic, atraumatic, hearing grossly normal bilaterally, external ears normal, Normal external nose present and moist oral mucous membranes HEAD & SCALP: normocephalic and atraumatic NOSE: Normal external nose present EXTERNAL EAR: Yes external ears normal Eye: COMMON NORMALS: Equal, round and reactive pupils present, EOMs intact bilaterally, conjunctivae normal and no scleral icterus CONJUNCTIVA: Yes conjunctivae normal PUPIL: Yes Equal, round and reactive pupils present Neck/C-Spine: COMMON NORMALS: full ROM, no lymphadenopathy, supple, no meningeal signs, no JVD and Thyroid normal THYROID: Thyroid normal Lymph: LYMPHATIC: no lymphadenopathy noted Chest: COMMONS NORMALS: normal inspection of the chest and normal palpation of entire chest wall Resp: COMMON NORMALS: normal respiratory effort, No retractions, No use of accessory muscles and clear to auscultation bilaterally AUSCULTATION: clear to auscultation bilaterally Cardio: COMMON NORMALS: no JVD, regular rhythm, S1 normal heart sound present, S2 normal heart sound present, No gallops present (Cardio), No clicks present (Cardio), No murmurs present (Cardio) and No rub (Cardio) RHYTHM: regular rhythm HEART SOUNDS: S1 normal heart sound present and S2 normal heart sound present GI: COMMON NORMALS: Normal to inspection, nondistended, normoactive bowel sounds present, Soft to palpation, No hepatosplenomegaly present and no masses PALPATION: Yes Soft to palpation and Yes No hepatosplenomegaly present Extremity: NARRATIVE EXTREMITY EXAM: Abrasion to left anterior knee, tender to palpation left anterior shoulder region and humeral head area. Limited range of motion secondary to pain Neuro: COMMON NORMALS: patient oriented x3 SENSORIUM/ORIENTATION: Yes alert MENINGEAL SIGNS: Yes no meningeal signs Course Vital Signs: Vital signs: Vital Signs Temperature 98.0 F 10/05/22 12:02 Pulse Rate 72 10/05/22 14:48 Respiratory Rate 18 10/05/22 14:48 Blood Pressure 158/87 10/05/22 14:48 Pulse Oximetry 96 10/05/22 14:48 Oxygen Delivery Me thod Room Air 10/05/22 14:48 MDM - Fall Medical Decision Making Patient presents to the ER with complaints of fall with left shoulder pain. Shoulder was x-rayed and it only showed degenerative changes without fracture or dislocation. Patient's blood sugar was 429 with a fingerstick on her Dexcom it read high patient was given 15 units of insulin and her sugars was coming down 380 when she checked on her Dexcom. UA was obtained which was negative except for 4+ glucose. Patient be discharged home with instructions on fall and shoulder pain. Patient is to follow-up with PCP within 1 week as needed. Differential Diagnosis Unlikely syncope, dislocation of shoulder region, fracture of wrist, compression fracture, concussion with loss of consciousness or concussion without loss of consciousness Medical Records I reviewed the patient's medical records. Lab Data I reviewed the patient's lab results. Radiology Impressions Shoulder X-Ray 10/05/22 13:19 IMPRESSION: Degenerative change and without fracture or dislocation. Laboratory Results POC Glucose 429 mg/dL (70-110) H 10/05/22 12:06 Urine Color Yellow (Yellow) 10/05/22 14:35 Urine Appearance Clear (CLEAR) 10/05/22 14:35 Urine pH 5 (5-7) 10/05/22 14:35 Ur Specific [place] 1.015 (1.005-1.030) 10/05/22 14:35 Urine Protein Neg (Negative) 10/05/22 14:35 Urine Glucose (UA) 4+ (Normal) H 10/05/22 14:35 Urine Ketones Negative (Negative) 10/05/22 14:35 Urine Blood Neg (Negative) 10/05/22 14:35 Urine Nitrate Negative (Negative) 10/05/22 14:35 Urine Bilirubin Neg (Negative) 10/05/22 14:35 Urine Urobilinogen Norm mg/dL (Negative) 10/05/22 14:35 Ur Leukocyte Esterase Negative (Negative) 10/05/22 14:35 Discharge Plan Discharge Patient Disposition: Home Clinical Impression: Fall Qualifiers: Encounter type: initial encounter Qualified Code(s): W19.XXXA - Unspecified fall, initial encounter Acute shoulder pain due to trauma Qualifiers: Laterality: left Qualified Code(s): M25.512 - Pain in left shoulder Condition: Stable Prescriptions: No Action apple cider vinegar 300 mg tablet 450 mg PO BID cinnamon bark [Cinnamon] 500 mg capsule 500 mg PO BID nitroglycerin 0.4 mg tablet, sublingual 0.4 mg sublingual Q5M PRN (Reason: chest pain) 30 Days Qty: 30 3RF Rx Instructions: until response; do not exceed 3 doses per episode cholecalciferol (vitamin D3) 25 mcg (1,000 unit) capsule 25 mcg PO DAILY Qty: 30 0RF lansoprazole [Prevacid] 30 mg capsule,delayed release(DR/EC) 30 mg PO BID zoledronic acid 4 mg recon soln 5 mg IV .[id number] Qty: 1 0RF Rx Instructions: will get the infusion at the GI lab furosemide 40 mg tablet 40 mg PO DAILY PRN (Reason: edema) Qty: 30 0RF doxycycline hyclate 100 mg capsule 100 mg PO BID Qty: 20 0RF triamcinolone acetonide 0.1 % ointment 1 applic topical TID Qty: 15 0RF clopidogrel [Plavix] 75 mg tablet 75 mg PO DAILY 90 Days Qty: 90 3RF insulin aspart U-100 [Novolog FlexPen U-100 Insulin] 100 unit/mL (3 mL) insulin pen See Rx Instructions .ROUTE .COMPLEX Rx Instructions: per sliding scale (DME) Dexcom G6 Sensor Device See Rx Instructions .Route Qty: 3 3RF Rx Instructions: Change every 10 days. multivitamin Tablet 1 tab PO DAILY losartan 50 mg tablet 50 mg PO DAILY Qty: 30 5RF (DME) Dexcom G7 Sensor Device See Rx Instructions .ROUTE .MEDSUPPLY Qty: 6 0RF Rx Instructions: Change every 10days (DME) Dexcom G7 Carpet Finishing Supervisor Misc See Rx Instructions .Route Qty: 1 0RF Rx Instructions: As directed albuterol sulfate [ProAir HFA] 90 mcg/actuation HFA aerosol inhaler 2 puff inhalation Q6H PRN (Reason: shortness of breath or wheezing) Qty: 8.5 5RF Rx Instructions: 340B (DME) Innospire Go Nebulizer Misc See Rx Instructions .Route Qty: 1 0RF Rx Instructions: As directed (DME) Contour Test Strips Strip See Rx Instructions .Route Qty: 400 3RF Rx Instructions: Check BS 4 times a day. promethazine-DM 6.25-15 mg/5 mL syrup 5 ml PO Q6H PRN (Reason: cough) Qty: 120 0RF albuterol sulfate 2.5 mg /3 mL (0.083 %) solution for nebulization 2.5 mg inhalation Q6H PRN (Reason: shortness of breath or wheezing) Qty: 90 3RF (DME) Dexcom G6 Carpet Finishing Supervisor Misc See Rx Instructions .Route Qty: 1 0RF Rx Instructions: Check BS 4-6 times a day. potassium chloride 10 mEq capsule, extended release 20 meq PO DAILY PRN (Reason: CHF) Qty: 90 2RF atorvastatin 40 mg tablet 40 mg PO DAILY Qty: 90 3RF diltiazem HCl 60 mg tablet 60 mg PO TID Qty: 270 3RF (DME) Dexcom G6 Transmitter Device See Rx Instructions .Route Qty: 1 3RF Rx Instructions: Change every 90 days. ambrisentan [Letairis] 10 mg tablet 10 mg PO DAILY Qty: 30 11RF Rx Instructions: do not break, crush, or chew tablet(s) mupirocin 2 % ointment 1 applic topical BID Qty: 22 1RF Rx Instructions: Apply to affected area(s) until healed budesonide [Pulmicort] 1 mg/2 mL suspension for nebulization 0.5 mg inhalation Q12H Qty: 60 6RF formoterol fumarate [Perforomist] 20 mcg/2 mL solution for nebulization 2 ml inhalation BID Qty: 60 6RF Yupelri 175 mcg/3 mL solution for nebulization 175 mcg inhalation DAILY Qty: 90 6RF metoprolol tartrate 25 mg tablet 25 mg PO TID Qty: 300 6RF isosorbide mononitrate 120 mg tablet extended release 24 hr 120 mg PO DAILY Qty: 90 3RF Contrave 8-90 mg tablet extended release 2 tab PO Q12H Qty: 120 0RF ibmfjade-owvubjsbx-RA 3.5-10,000-1 mg/mL-unit/mL-% drops,suspension 4 drop EAR-BOTH TID PRN (Reason: Pain) (DME) Space Chamber Spacer See Rx Instructions .Route Qty: 1 0RF Rx Instructions: As directed prednisone 20 mg tablet 20 mg PO DAILY PRN (Reason: tick bite) Levemir FlexTouch U-100 Insuln 100 unit/mL (3 mL) insulin pen 50 unit SUBCUT DAILY Probiotic 3 billion cell Capsule 3,000 mmu cells PO DAILY Rx Instructions: administer with a meal Pancreaze 21,000-54,700- 83,900 unit capsule,delayed release(DR/EC) 3 cap PO .6 TIMES DAILY Rx Instructions: administer with meals Discharge Orders: Discharge ED (Routine); Ordered 10/05/22 Ordered By: Michael Araya Referrals: Solo Mendenhall, [facility] [Primary Care Provider] - 1 week Patient Instructions: Fall Prevention (ED), Shoulder Pain (ED) Activity Restrictions/Additional Instructions: Please follow-up with your family practice provider within next week as needed especially if your pain in your shoulder does not continuously improve. Keep please keep an eye on your blood sugars. Coding Level of Care Code ED Software Programmer for Fiordaliza Ribeiro
[2022-10-05] MEDS: insulin lispro 100 unit/1 mL 15 UNIT SUBCUT (14:34)
[2022-10-05 14:48] VITALS: BP 158/87; PULSE 72; RESP 18; O2SAT 96
[2022-10-05 15:15] LABS: Add Urine Microscopic? NO; Charge for UA Resulting for Rev
[2022-10-05 15:19] LABS: Bilirubin Urine Neg (Negative); Blood Urine Neg (Negative); Glucose Urine UA 4+ (Normal); Ketones Urine Negative (Negative); Leukocyte Esterase Urine Negative (Negative); Nitrate Urine Negative (Negative); Protein Urine Neg (Negative); Specific Gravity, Urine 1.015 (1.005-1.030); Urine Appearance Clear (CLEAR); Urine Color Yellow (Yellow); Urobilinogen Urine Norm (Negative); pH Urine 5 (5-7)
== END 2022-10-05 15:46 | disposition home or self-care (01) ==
PROVIDERS: Emergency Provider Emergency Medicine; PCP Nurse Practitioner
DX: M25.512 Pain in left shoulder (principal); Z79.4 Long term (current) use of insulin; Z79.02 Long term (current) use of antithrombotics/antiplatelets; Z87.891 Personal history of nicotine dependence; I25.10 Atherosclerotic heart disease of native coronary artery without angina pectoris; I50.9 Heart failure, unspecified; J44.9 Chronic obstructive pulmonary disease, unspecified; E11.9 Type 2 diabetes mellitus without complications; W10.1XXA Fall (on)(from) sidewalk curb, initial encounter
CPT/HCPCS: 36416; 73030; 81003; 82962; 96372; 99284; J1815

== ENCOUNTER → 2022-11-02 12:34 | Outpatient (BNVA) | payer MEDICARE, OTHER, SELFPAY | PROVIDERS: PCP Nurse Practitioner; Visit Provider Internal Medicine Pulmonary Disease | DX: J44.9 Chronic obstructive pulmonary disease, unspecified (principal); G47.33 Obstructive sleep apnea (adult) (pediatric); I50.9 Heart failure, unspecified; Z87.891 Personal history of nicotine dependence; I27.23 Pulmonary hypertension due to lung diseases and hypoxia; Z99.81 Dependence on supplemental oxygen | CPT/HCPCS: 99214 ==

== ENCOUNTER → 2022-11-26 13:14 | Outpatient (BNVA) | payer MEDICARE, OTHER, SELFPAY | PROVIDERS: PCP Nurse Practitioner; Visit Provider Dermatology | DX: L57.0 Actinic keratosis (principal); L82.1 Other seborrheic keratosis; L72.0 Epidermal cyst; L81.4 Other melanin hyperpigmentation; L82.0 Inflamed seborrheic keratosis; H61.0 Chondritis and perichondritis of external ear | CPT/HCPCS: 17000; 17003; 17110; 99213 ==

== ENCOUNTER → 2022-12-07 11:00 | Outpatient (BNVA) | payer MEDICARE, OTHER, SELFPAY | PROVIDERS: PCP Nurse Practitioner; Visit Provider Internal Medicine | DX: E11.40 Type 2 diabetes mellitus with diabetic neuropathy, unspecified (principal); E11.649 Type 2 diabetes mellitus with hypoglycemia without coma; E11.69 Type 2 diabetes mellitus with other specified complication; E11.65 Type 2 diabetes mellitus with hyperglycemia; E03.9 Hypothyroidism, unspecified; K86.9 Disease of pancreas, unspecified; K86.1 Other chronic pancreatitis; E67.3 Hypervitaminosis D; M81.0 Age-related osteoporosis without current pathological fracture; E78.5 Hyperlipidemia, unspecified; E16.0 Drug-induced hypoglycemia without coma; T38.3X5A Adverse effect of insulin and oral hypoglycemic [antidiabetic] drugs, initial encounter; Z79.4 Long term (current) use of insulin | CPT/HCPCS: 99214 ==

== ENCOUNTER → 2023-01-08 11:16 | Outpatient (BNVA) | payer MEDICARE, OTHER, SELFPAY | PROVIDERS: PCP Nurse Practitioner; Visit Provider Nurse Practitioner | DX: R60.9 Edema, unspecified (principal) | CPT/HCPCS: 80053 ==

== ENCOUNTER 2023-02-16 12:03 | Outpatient (CLI) | payer MEDICARE, OTHER, SELFPAY ==
--- NOTE | 2023-02-16 12:00 | USCV_ITS ---
Mireille Kaur Age: 83 Gender: F : 1940 Exam Date: 02/16/2023 12:21 Ordering Phys: Solo Mendenhall Technologist: Ehsan Klein [place] [facility] [place]: lt leg pain and swelling PROCEDURES: Venous duplex imaging was performed in only the left lower extremity. The following venous structures were evaluated: common femoral vein, profunda vein, proximal portion of the greater saphenous vein, superficial femoral vein, and the popliteal vein. FINDINGS: Normal 2-D Doppler and augmentation and compressibility throughout the lower extremity venous structures. Additional imaging through the proximal calf veins also reveals no thrombus. Limited evaluation of the greater saphenous vein is patent with no thrombus. CONCLUSIONS No evidence of left lower extremity DVT. Bryon Landin MD (Electronically Signed) Final Date: 16 February 2023 13:18 S
== END 2023-02-16 12:04 | disposition home or self-care (01) ==
PROVIDERS: PCP Nurse Practitioner; Visit Provider Nurse Practitioner
DX: M79.662 Pain in left lower leg (principal); M79.89 Other specified soft tissue disorders
CPT/HCPCS: 93971

== ENCOUNTER → 2023-03-02 10:03 | Outpatient (BNVA) | payer MEDICARE, OTHER, SELFPAY | PROVIDERS: PCP Nurse Practitioner; Visit Provider Nurse Practitioner Family | DX: L57.0 Actinic keratosis (principal); L82.1 Other seborrheic keratosis; L72.0 Epidermal cyst; L81.4 Other melanin hyperpigmentation; L82.0 Inflamed seborrheic keratosis; H61.0 Chondritis and perichondritis of external ear; I87.2 Venous insufficiency (chronic) (peripheral) | CPT/HCPCS: 17000; 17110; 99213 ==

== ENCOUNTER → 2023-03-09 07:12 | Outpatient (BNVA) | payer MEDICARE, OTHER, SELFPAY | PROVIDERS: PCP Nurse Practitioner; Visit Provider Podiatrist Foot & Ankle Surgery | DX: L72.0 Epidermal cyst (principal); I87.2 Venous insufficiency (chronic) (peripheral); L82.1 Other seborrheic keratosis; L57.0 Actinic keratosis; B35.1 Tinea unguium; E11.40 Type 2 diabetes mellitus with diabetic neuropathy, unspecified; E11.69 Type 2 diabetes mellitus with other specified complication; K86.9 Disease of pancreas, unspecified; I73.9 Peripheral vascular disease, unspecified; R60.9 Edema, unspecified; R60.0 Localized edema; E11.649 Type 2 diabetes mellitus with hypoglycemia without coma; E11.610 Type 2 diabetes mellitus with diabetic neuropathic arthropathy; K86.1 Other chronic pancreatitis; E03.9 Hypothyroidism, unspecified; I50.9 Heart failure, unspecified; Z79.4 Long term (current) use of insulin; M81.0 Age-related osteoporosis without current pathological fracture; E78.5 Hyperlipidemia, unspecified; E16.0 Drug-induced hypoglycemia without coma; T38.3X5A Adverse effect of insulin and oral hypoglycemic [antidiabetic] drugs, initial encounter | CPT/HCPCS: 11720; 99203; 99213; 99214 ==

== ENCOUNTER → 2023-03-16 07:30 | Outpatient (BNVA) | payer MEDICARE, OTHER, SELFPAY | PROVIDERS: PCP Nurse Practitioner; Visit Provider Podiatrist Foot & Ankle Surgery | DX: E11.40 Type 2 diabetes mellitus with diabetic neuropathy, unspecified (principal); E11.69 Type 2 diabetes mellitus with other specified complication; K86.9 Disease of pancreas, unspecified; I73.9 Peripheral vascular disease, unspecified; R60.9 Edema, unspecified; Z79.4 Long term (current) use of insulin | CPT/HCPCS: 99213 ==

== ENCOUNTER 2023-03-19 07:48 | Oncology outpatient (recurring) (ONCR) | payer MEDICARE, OTHER, SELFPAY ==
[2023-03-19 08:30] VITALS: BP 154/70; PULSE 82; RESP 16; O2SAT 93
[2023-03-19] MEDS: zoledronic acid 5 MG in empty flexible container 1 EACH 400 MG IV (09:18)
== END 2023-04-15 23:59 | disposition home or self-care (01) ==
LOC: ONCMED 07:49
PROVIDERS: PCP Nurse Practitioner; Visit Provider Internal Medicine
DX: M81.0 Age-related osteoporosis without current pathological fracture (principal)
CPT/HCPCS: 96365; J3489

== ENCOUNTER → 2023-05-06 07:40 | Outpatient (BNVA) | payer MEDICARE, OTHER, SELFPAY | PROVIDERS: PCP Nurse Practitioner; Visit Provider Internal Medicine | DX: E11.40 Type 2 diabetes mellitus with diabetic neuropathy, unspecified; E11.69 Type 2 diabetes mellitus with other specified complication; E03.9 Hypothyroidism, unspecified; K86.9 Disease of pancreas, unspecified; K86.1 Other chronic pancreatitis; M81.0 Age-related osteoporosis without current pathological fracture; E78.5 Hyperlipidemia, unspecified; E16.0 Drug-induced hypoglycemia without coma; T38.3X5A Adverse effect of insulin and oral hypoglycemic [antidiabetic] drugs, initial encounter; I50.9 Heart failure, unspecified; X58.XXXA Exposure to other specified factors, initial encounter; Z79.4 Long term (current) use of insulin; I73.9 Peripheral vascular disease, unspecified; R60.9 Edema, unspecified; R06.02 Shortness of breath; J44.9 Chronic obstructive pulmonary disease, unspecified; G47.33 Obstructive sleep apnea (adult) (pediatric); I27.20 Pulmonary hypertension, unspecified; Z87.891 Personal history of nicotine dependence; I25.10 Atherosclerotic heart disease of native coronary artery without angina pectoris; I11.0 Hypertensive heart disease with heart failure; I50.32 Chronic diastolic (congestive) heart failure; I48.20 Chronic atrial fibrillation, unspecified; R55 Syncope and collapse | CPT/HCPCS: 36415; 80053; 80061; 82044; 83036; 84439; 84443; 99213; 99214 ==

== ENCOUNTER 2023-05-13 08:10 | Outpatient (CLI) | payer MEDICARE, OTHER, SELFPAY ==
--- NOTE | 2023-05-13 09:15 | USCV_ITS ---
Mireille Kaur Age: 83 Gender: F : 1940 Exam Date: 05/13/2023 08:48 Ordering Phys: Blanca Nava MD ([email or web address]) Technologist: STEVE Exam Location: [facility] [place] Indication: HTN Aortic Velocity @ SMA (cm/s) 100 RIGHT KIDNEY LEFT KIDNEY Velocity (cm/s) Velocity (cm/s) Sys/Rios Sys/Rios Resistive Index Resistive Index 140.0 / 35.2 0.75 Proximal Renal Artery 42.6 / 10.3 0.76 93.7 / 26.0 0.72 Mid Renal Artery 46.2 / 9.0 0.81 82.5 / 18.5 0.78 Distal Renal Artery 89.7 / 21.8 0.76 58.5 / 18.1 0.69 Hilar 59.8 / 17.6 0.71 41.9 / 12.4 0.71 Upper Pole 42.5 / 12.1 0.72 29.9 / 8.0 0.73 Mid Pole 50.3 / 12.1 0.76 21.4 / 6.1 0.72 Lower Pole 31.8 / 11.5 0.64 1.40 Renal Aortic Ratio 0.90 Accleration Index (cm/sec2) 621.00 Hilar 854.00 490.00 Upper Pole 921.00 498.00 Mid Pole 662.00 251.00 Lower Pole 482.00 FINDINGS Bilat renal cysts noted CONCLUSIONS Normal color flow Doppler, peak systolic velocities, Renal/Aortic peak systolic velocity ratio and resistive indices noted in bilateral main, segmental and interlobar renal arteries. No hydronephrosis Bilateral Simple Renal cysts Largest on the RIGHT measuring 4.9 x 4.3cm Largest on the LEFT measuring 8.1 x 9.1cm Bryon Landin MD (Electronically Signed) Final Date: 13 May 2023 09:38 S
== END 2023-05-13 08:11 | disposition home or self-care (01) ==
LOC: RAD 08:11
PROVIDERS: PCP Nurse Practitioner; Visit Provider Internal Medicine Cardiovascular Disease
DX: I10 Essential (primary) hypertension (principal); N28.1 Cyst of kidney, acquired
CPT/HCPCS: 93975

== ENCOUNTER → 2023-06-14 13:23 | Outpatient (BNVA) | payer MEDICARE, OTHER, SELFPAY | PROVIDERS: PCP Nurse Practitioner; Visit Provider Podiatrist Foot & Ankle Surgery | DX: E11.40 Type 2 diabetes mellitus with diabetic neuropathy, unspecified; E11.69 Type 2 diabetes mellitus with other specified complication; K86.9 Disease of pancreas, unspecified; I73.9 Peripheral vascular disease, unspecified; R60.9 Edema, unspecified; Z79.4 Long term (current) use of insulin | CPT/HCPCS: 99213 ==

== ENCOUNTER → 2023-06-25 08:37 | Outpatient (BNVA) | payer MEDICARE, SELFPAY | PROVIDERS: PCP Nurse Practitioner; Visit Provider Internal Medicine | DX: M81.0 Age-related osteoporosis without current pathological fracture (principal); E03.9 Hypothyroidism, unspecified; E11.69 Type 2 diabetes mellitus with other specified complication; K86.9 Disease of pancreas, unspecified; I50.9 Heart failure, unspecified; K86.1 Other chronic pancreatitis; E78.5 Hyperlipidemia, unspecified; E11.40 Type 2 diabetes mellitus with diabetic neuropathy, unspecified; Z79.4 Long term (current) use of insulin | CPT/HCPCS: 99214 ==

== ENCOUNTER → 2023-07-20 10:45 | Outpatient (BNVA) | payer MEDICARE, SELFPAY | PROVIDERS: PCP Nurse Practitioner; Visit Provider Podiatrist Foot & Ankle Surgery | DX: L60.3 Nail dystrophy (principal); E11.40 Type 2 diabetes mellitus with diabetic neuropathy, unspecified; E11.69 Type 2 diabetes mellitus with other specified complication; K86.9 Disease of pancreas, unspecified; I73.9 Peripheral vascular disease, unspecified; R60.9 Edema, unspecified; Z79.4 Long term (current) use of insulin | CPT/HCPCS: 11721 ==

== ENCOUNTER 2023-08-06 10:29 | Outpatient (CLI) | payer MEDICARE, SELFPAY ==
--- NOTE | 2023-08-06 11:00 | US_ITS ---
WS: [id number] ULTRASOUND RENAL TECHNIQUE: Ultrasound examination of both kidneys. CLINICAL INFORMATION: N28.1 - Cyst of kidney, acquired COMPARISON: CT 09/24/2021 FINDINGS: Multiple bilateral simple renal cysts. Largest RIGHT mid inferior kidney measuring 3.9 x 3.3 x 5.1 cm Largest LEFT kidney 8.1 x 6.9 x 8.1 cm upper pole. RIGHT: Right kidney is normal in size and appearance. Echogenicity: Normal. Cortical thickness: 1.0 cm; Normal. Hydronephrosis: None. Perinephric fluid: None. Right kidney measures: 9.4 cm x 4.7 cm x 5.9 cm. LEFT: Left kidney is normal in size and appearance. Echogenicity: Normal. Cortical thickness: 1.1 cm; Normal. Hydronephrosis: None. Perinephric fluid: None. Left kidney measures: 10.2 cm x 5.4 cm x 5.9 cm. Normal visualized aorta. Normal bladder. IMPRESSION: 1. No hydronephrosis measuring in either kidney. 2. Bilateral simple renal cysts described above. 3. Normal bladder.
== END 2023-08-06 10:30 | disposition home or self-care (01) ==
LOC: RAD 10:30
PROVIDERS: PCP Nurse Practitioner; Visit Provider Nurse Practitioner
DX: N28.1 Cyst of kidney, acquired (principal)
CPT/HCPCS: 76770

== ENCOUNTER → 2023-09-15 08:45 | Outpatient (BNVA) | payer MEDICARE, SELFPAY | PROVIDERS: PCP Nurse Practitioner; Visit Provider Internal Medicine | DX: K86.1 Other chronic pancreatitis (principal); E03.9 Hypothyroidism, unspecified; E11.69 Type 2 diabetes mellitus with other specified complication; K86.9 Disease of pancreas, unspecified; I50.9 Heart failure, unspecified; M81.0 Age-related osteoporosis without current pathological fracture | CPT/HCPCS: 80053; 80061; 82043; 82306; 83036; 84439; 84443 ==

== ENCOUNTER → 2023-09-23 11:14 | Outpatient (BNVA) | payer MEDICARE, SELFPAY | PROVIDERS: PCP Nurse Practitioner; Visit Provider Internal Medicine | DX: E11.69 Type 2 diabetes mellitus with other specified complication (principal); K86.9 Disease of pancreas, unspecified; K86.1 Other chronic pancreatitis; M81.0 Age-related osteoporosis without current pathological fracture; E78.5 Hyperlipidemia, unspecified; E11.40 Type 2 diabetes mellitus with diabetic neuropathy, unspecified; I73.9 Peripheral vascular disease, unspecified; L60.3 Nail dystrophy; R60.9 Edema, unspecified; Z79.4 Long term (current) use of insulin | CPT/HCPCS: 11721; 99214 ==

== ENCOUNTER → 2023-11-02 09:42 | Outpatient (BNVA) | payer MEDICARE, SELFPAY | PROVIDERS: PCP Nurse Practitioner; Visit Provider Internal Medicine Cardiovascular Disease | DX: I11.0 Hypertensive heart disease with heart failure (principal); I50.9 Heart failure, unspecified; Z79.01 Long term (current) use of anticoagulants; I48.20 Chronic atrial fibrillation, unspecified; E78.5 Hyperlipidemia, unspecified; Z95.818 Presence of other cardiac implants and grafts; Z87.891 Personal history of nicotine dependence | CPT/HCPCS: 99214 ==

== ENCOUNTER → 2023-12-01 08:49 | Outpatient (BNVA) | payer MEDICARE, SELFPAY | PROVIDERS: PCP Nurse Practitioner; Visit Provider Internal Medicine Critical Care Medicine | DX: J96.11 Chronic respiratory failure with hypoxia; J44.9 Chronic obstructive pulmonary disease, unspecified; I50.32 Chronic diastolic (congestive) heart failure; I48.20 Chronic atrial fibrillation, unspecified; I27.20 Pulmonary hypertension, unspecified; R29.898 Other symptoms and signs involving the musculoskeletal system | CPT/HCPCS: 99214 ==

== ENCOUNTER 2023-12-17 11:49 | Outpatient (CLI) | payer MEDICARE, SELFPAY ==
--- NOTE | 2023-12-17 13:00 | XR_ITS ---
WS: [id number] SCREENING DEXA SCAN [place] CLINICAL INFORMATION: osteoporosis COMPARISON: 2021 FINDINGS: The LEFT forearm bone mineral density measures 0.648. This corresponds to a T score score of -2.6 and Z score of 0.4. Left femoral neck bone mineral density measures 0.792 (g/cm2). This corresponds to a T score of -1.7 (no units) and Z score of 0.2 (no units). XR/XR DEXA axial skeleton* [id number] IMPRESSION: Osteopenia LEFT femoral neck. Osteoporosis LEFT forearm at the lower end of the range. Patient's FRAX calculated 10 year probability for major osteoporotic fracture i s 29.9% and osteoporotic hip fracture is 10.2%. Bone mineral density LEFT femoral neck increased 5.0% Bone mineral density LEFT forearm increased 6.1%
== END 2023-12-17 11:50 | disposition home or self-care (01) ==
LOC: RAD 11:49
PROVIDERS: PCP Nurse Practitioner; Visit Provider Internal Medicine
DX: Z13.820 Encounter for screening for osteoporosis (principal); M81.0 Age-related osteoporosis without current pathological fracture; M85.851 Other specified disorders of bone density and structure, right thigh
CPT/HCPCS: 77080

== ENCOUNTER → 2023-12-27 08:17 | Outpatient (BNVA) | payer MEDICARE, SELFPAY | PROVIDERS: PCP Nurse Practitioner; Visit Provider Internal Medicine | DX: J96.11 Chronic respiratory failure with hypoxia (principal); E11.69 Type 2 diabetes mellitus with other specified complication; K86.9 Disease of pancreas, unspecified; E78.5 Hyperlipidemia, unspecified; K86.1 Other chronic pancreatitis | CPT/HCPCS: 80053; 80061; 82043; 83036 ==

== ENCOUNTER → 2023-12-28 08:15 | Outpatient (BNVA) | payer MEDICARE, SELFPAY | PROVIDERS: PCP Nurse Practitioner; Visit Provider Internal Medicine | DX: M81.0 Age-related osteoporosis without current pathological fracture (principal); E11.69 Type 2 diabetes mellitus with other specified complication; K86.9 Disease of pancreas, unspecified; E78.5 Hyperlipidemia, unspecified; K86.1 Other chronic pancreatitis; I50.9 Heart failure, unspecified; E11.40 Type 2 diabetes mellitus with diabetic neuropathy, unspecified; R94.6 Abnormal results of thyroid function studies; Z79.4 Long term (current) use of insulin | CPT/HCPCS: 99215 ==

== ENCOUNTER 2024-01-05 06:36 | Outpatient (CLI) | payer MEDICARE, SELFPAY ==
[2024-01-05 07:52] LABS: Basophils % 0.4 %; Eosinophils # 0.5 10^3/uL (0.0-0.8); Eosinophils % 5.2 %; Hematocrit 39.5 % (36-47); Lymphocytes # 3.6 10^3/uL (0.8-4.8); Lymphocytes % 37.8 %; Mean Corpuscular HGB Conc 32.2 g/dL (30-55); Mean Corpuscular Hemoglobin 28.5 pg (27-33); Mean Corpuscular Volume 88.6 fl (85-98); Mean Platelet Volume 9.6 fL (7.4-10.4); Monocytes # 0.7 10^3/uL (0.2-0.9); Monocytes % 7.4 %; Neutrophils # 4.56 10^3/uL (1.8-7.7); Neutrophils % 48.6 %; Nucleated Red Blood Cells % 0 %; Platelet Count 357 10^3/cmm (157-399); Red Blood Count 4.46 10^6/uL (3.85-5.65); Red Cell Distribution Width 12.5 % (12.1-15.1)
[2024-01-05 08:00] VITALS: BP 154/98; PULSE 68; RESP 16; TEMP 36.6; O2SAT 94
--- NOTE | 2024-01-05 08:36 | P.HP_ITS ---
Providers/Chief Complaint 2 Admitting Physician: Dr. TAYLOR Nava Primary Care Provider: Solo Mendenhall, [employer] [facility] Chief Complaint: Z45.09 History of Present Illness Mireille Kaur is a 83 year old female with a history of intermittent atrial fibrillation, pulmonary hypertension, diabetes, obstructive sleep apnea, had an implantable living specialist many years ago for the diagnosis of recurrent syncope/near syncope. The device is end-of-life for some time now. Patient is wanting to take this device out She has no fever or chills. She is not on any oral anticoagulation. Review of Systems 2 Narrative: CONSTITUTIONAL: No fever or chills. EYES: No blurring of vision or other visual disturbances lately. ENT: No hoarseness of voice, auditory disturbances or sore throat. CARDIOVASCULAR: As mentioned above. RESPIRATORY: No significant cough. GASTROINTESTINAL: No hematemesis or melena. GENITOURINARY: No dysuria or hematuria. INTEGUMENTARY: No skin rashes or history of skin cancer. NEURO: No transient ischemic attacks or amaurosis. PSYCHIATRIC: No history of psychosis or major depression. HEMATOLOGIC: No bleeding disorders or significant anemia. ENDOCRINE: No history of polyuria or polydipsia. MUSCULOSKELETAL: No recent joint pain or swelling. ALLERGY/IMMUNOLOGY: As mentioned above. Medications/Allergies Home Medications Medication Instructions Recorded Confirmed Last Taken Type apple cider vinegar 300 mg tablet 450 mg PO BID 12/21/19 01/04/24 01/04/24 History cinnamon bark 500 mg capsule 500 mg PO BID 06/24/20 01/04/24 01/04/24 History (Cinnamon) nitroglycerin 0.4 mg sublingual 0.4 mg sublingual Q5M PRN chest 09/23/20 01/04/24 12/24/21 Rx tablet pain 30 days #30 tabs nebulizers (Innospire Go Nebulizer #1 ea 05/30/21 01/04/24 01/04/24 Rx misc) cholecalciferol (vitamin D3) 25 25 mcg PO DAILY #30 caps 09/01/21 01/04/24 01/04/24 Rx mcg (1,000 unit) capsule inhalational spacing device (Space #1 ea 09/24/21 01/04/24 01/04/24 Rx Chamber) albuterol sulfate 2.5 mg/3 mL 2.5 mg (3 mL) inhalation Q6H PRN 10/29/21 01/04/24 01/04/24 Rx (0.083 %) solution for nebulization shortness of breath or wheezing #90 mL zoledronic acid 4 mg intravenous 5 mg IV .[id number] #1 ea 12/16/21 01/04/24 12/24/21 Rx solution lansoprazole 30 mg capsule,delayed 30 mg PO BID Pain 01/30/22 01/04/24 01/04/24 History release (Prevacid) mupirocin 2 % topical ointment 1 applic topical BID #22 grams 06/24/22 01/04/24 Unknown Rx revefenacin 175 mcg/3 mL solution 175 mcg (3 mL) inhalation DAILY 06/24/22 01/04/24 01/04/24 Rx for nebulization (Yupelri) #90 mL multivitamin 1 tab PO DAILY 07/30/22 01/04/24 01/04/24 History blood-glucose meter,continuous #1 ea 10/05/22 01/04/24 01/04/24 Rx (Dexcom G7 Supervisor Sulfuric Acid Plant) blood-glucose sensor (Dexcom G7 #6 ea 10/05/22 01/04/24 01/04/24 Rx Sensor device) lactobacillus combination no.4 3 3,000 mmu cells PO DAILY 10/05/22 01/04/24 01/04/24 History billion cell capsule (Probiotic) pregabalin 25 mg capsule (Lyrica) 25 mg PO DAILY #90 caps 10/05/22 01/04/24 01/04/24 Rx albuterol sulfate 90 mcg/actuation 2 puff inhalation Q6H PRN 11/03/22 01/04/24 01/04/24 Rx aerosol inhaler (ProAir HFA) shortness of breath or wheezing #8.5 grams potassium chloride 10 mEq 20 meq (2 x 10 mEq) PO DAILY PRN 11/03/22 01/04/24 Unknown Rx capsule,extended release CHF #90 caps clopidogrel 75 mg tablet (Plavix) 75 mg PO DAILY #90 tabs 01/12/23 01/04/24 01/04/24 Rx triamcinolone acetonide 0.1 % 1 applic topical DAILY #30 grams 02/23/23 01/04/24 01/04/24 Rx topical ointment [id number] antigen-AS01E 0.5 ml IM ONCE #10 ea 04/01/23 01/04/24 Unknown Rx adjuvant(PF) 120 mcg/0.5 mL IM suspension, kit ambrisentan 10 mg tablet (Letairis) 10 mg PO DAILY #30 tabs 04/15/23 01/04/24 01/04/24 Rx diabetic shoes with 3 inserts #1 ea 07/20/23 01/04/24 01/04/24 Rx blood sugar diagnostic (Prodigy No #200 ea 09/13/23 01/04/24 01/04/24 Rx Coding strips) bupropion HCl 150 mg 24 hr tablet, 150 mg PO QAM #90 tabs 09/14/23 01/04/24 01/04/24 Rx extended release (Wellbutrin XL) furosemide 40 mg tablet 40 mg PO DAILY PRN edema #90 tabs 09/14/23 01/04/24 Unknown Rx diabetic shoes with 3 inserts #1 ea 09/23/23 01/04/24 01/04/24 Rx insulin aspart U-100 100 unit/mL 8 unit (0.08 mL) SUBCUT TID #21.6 09/23/23 01/04/24 01/04/24 Rx (3 mL) subcutaneous pen (Novolog mL FlexPen U-100 Insulin aspart) metoprolol tartrate 25 mg tablet 25 mg PO TID #300 tabs 10/12/23 01/04/24 01/04/24 Rx diltiazem HCl 180 mg 180 mg PO DAILY #30 caps 10/15/23 01/04/24 01/04/24 Rx capsule,extended release 24 hr, controlled (DILT-XR) budesonide 1 mg/2 mL suspension 0.5 mg inhalation Q12H #60 mL 10/19/23 01/04/24 01/04/24 Rx for nebulization (Pulmicort) formoterol fumarate 20 mcg/2 mL 2 ml inhalation BID #60 mL 10/19/23 01/04/24 01/04/24 Rx solution for nebulization (Perforomist) atorvastatin 40 mg tablet See Rx Instructions .Route 11/10/23 01/04/24 01/04/24 Rx .COMPLEX #90 tabs hydralazine 50 mg tablet 50 mg PO BID #180 tabs 11/10/23 01/04/24 01/04/24 Rx isosorbide mononitrate 120 mg 120 mg PO DAILY #90 tabs 11/10/23 01/04/24 01/04/24 Rx tablet,extended release 24 hr lipase 21,000-protease 3 cap PO .6 TIMES DAILY #400 caps 11/10/23 01/04/24 01/04/24 Rx 54,700-amylase 83,900 unit capsule,delayed rel (Pancreaze) losartan 100 mg tablet 100 mg PO DAILY #90 tabs 11/10/23 01/04/24 01/04/24 Rx insulin glargine 100 unit/mL (3 See Rx Instructions .Route 12/12/23 01/04/24 01/04/24 Rx mL) subcutaneous pen (Lantus .COMPLEX #15 mL Solostar U-100 Insulin) Allergies Allergy/AdvReac Type Severity Reaction Status Date / Time adhesive tape Allergy Mild ALGY-Rash Verified 01/05/24 07:59 chicken derived Allergy Unknown Unknown Verified 01/05/24 07:59 alcohol Allergy nausea Verified 01/05/24 07:59 aspirin Allergy ADR-Nose Verified 01/05/24 07:59 Bleed bacitracin Allergy ALGY-Hives Verified 01/05/24 07:59 [From Neosporin ([id number])] bee venom protein (honey bee) Allergy ALGY-Swell Verified 01/05/24 07:59 Lip/Tongue/Throat chocolate Allergy ADR-Nausea Verified 01/05/24 07:59 chocolate flavor Allergy ADR-Nausea Verified 01/05/24 07:59 morphine Allergy Unknown Verified 01/05/24 07:59 neomycin Allergy ALGY-Hives Verified 01/05/24 07:59 [From Neosporin ([id number])] Penicillins Allergy ALGY-Hives Verified 01/05/24 07:59 polymyxin B Allergy ALGY-Hives Verified 01/05/24 07:59 [From Neosporin ([id number])] PFSH Acute 2 PFSH: Medical History Chronic episodic atrial fibrillation Patient did not want to take any oral anticoagulation because of the side effects Status post placement of implantable loop recorder Recurrent syncope EKG from today 01/16/2020- revealed normal sinus rhythm with early repolarization changes in the inferolateral leads. No acute ST-T changes are noted. Normal [place] interval with nonspecific intraventricular conduction delay Atypical chest pain Atherosclerotic heart disease of [place] coronary artery without angina pectoris Patient had the cardiac catheterization in [place], in 2014. At that time, she was found to have mild diffuse coronary artery disease. Rotator cuff arthropathy Appendicitis, acute Cataract Diabetes mellitus associated with pancreatic disease Vitamin D deficiency Congestive heart failure Chronic pancreatitis Dyslipidemia COPD (chronic obstructive pulmonary disease) Peripheral vascular disease Surgical History Status post insertion of nerve stimulator 2010 in [place] Hip joint replacement by other means History of appendectomy History of nasal surgery Hx of toe surgery Hx of hysterectomy, total History of back surgery Family History Brother Bleeding disorder Clotting disorder CAD (coronary artery disease) Stroke Father CAD (coronary artery disease) Cancer Chronic kidney disease (CKD) Sister CAD (coronary artery disease) Cancer Lung disease Diabetes Grandmother Cancer Grandfather CAD (coronary artery disease) Other Hypertension Denies family history of Dementia Suicide Anesthesia complication Social History Smoking and tobacco/nicotine status: never used tobacco/nicotine Quit status (tobacco/nicotine): has quit using Year quit tobacco: 2017 - PPD x 65 Years Second hand smoke exposure: No Alcohol intake: never Substance/Drug Use: never Adopted: No Caregiver/support person: No Lives independently: Yes Household members: none Housing: House Marital status: / service: No Current occupational status: retired Pets and animals: No Do you think of yourself as: Straight/Heterosexual Current gender identity: Female Vitals/I&O/Wt Last Vital Signs Temp 97.9 F 01/05/24 08:00 Pulse 68 01/05/24 08:00 Resp 16 01/05/24 08:00 BP 154/98 01/05/24 08:00 Pulse Ox 94 01/05/24 08:00 O2 Del Method Room Air 01/05/24 08:00 Physical Exam 2 Narrative: GENERAL: The patient is alert and oriented times three. Not in any acute distress. HEENT: No significant pallor, icterus or lymphadenopathy.Oral cavity: There are no mucous membrane lesions. NECK: Trachea appears to be central. No masses noted. No JVD or thyromegaly appreciated. RESPIRATORY: Chest is symmetrical. No intercostals muscle retraction or any accessory muscle activation. There is no chest wall tenderness. Breath sounds are heard bilaterally. No rales or rhonchi heard. No evidence of any consolidation. BREASTS: Deferred. HEART: The heart sounds are normal. No S3 or S4. No significant murmurs. No pericardial rub ABDOMEN: No vessel pulsations or distention. No tenderness. No organomegaly appreciated. Bowel sounds are normally heard. : Deferred. RECTAL: Deferred. LYMPHATIC: No lymphadenopathy noted in the neck. EXTREMITIES: No edema or cyanosis. No clubbing. MUSCULOSKELETAL: No acute joint deformities or swelling SKIN: There are no significant rashes or ecchymosis NEUROPSYCHIATRIC: The patient is alert and oriented x3. Appears to be in a good mood. No tremors or rigidity noted. Data 01/05/24 07:35 A&P Assessment and plan (1) Encounter for loop recorder at end of battery life: (2) Peripheral vascular disease: (3) Dyslipidemia: (4) Atherosclerotic heart disease of [place] coronary artery without angina pectoris: Qualifiers: [place] vs. transplanted heart: [place] heart Qualified Code(s): I25.10 - Atherosclerotic heart disease of [place] coronary artery without angina pectoris (5) Chronic diastolic heart failure: Plan Patient is scheduled for explantation of the implantable living specialist today. The risk of bleeding, hematoma, vascular injury and infection with concomitant complications were discussed with the patient in detail which is understood well and consented to proceed. Attestations 2 Medical Necessity Statement*: Possible discharge home today after an hour or so following the procedure. Coding Level of Care Code 93855 Diagnoses Encounter for loop recorder at end of battery life Z45.09 Peripheral vascular disease I73.9 Dyslipidemia E78.5 Atherosclerosis of [place] coronary artery of [place] heart without angina pectoris I25.10 [place] vs. transplanted heart: [place] heart Chronic diastolic heart failure I50.32
--- NOTE | 2024-01-05 08:39 | P.HPUD_ITS ---
Surgery/Procedure H&P Update DATE OF PROCEDURE: January 05, 2024 DATE H&P PERFORMED: 01/05/24 H&P UPDATE INFORMATION: I have reviewed H&P completed within last 30 days, I have examined patient prior to procedure and No changes to prior documentation PREOP DIAGNOSIS: Implantable air sampling and monitoring, end of battery life PRIMARY INDICATION FOR PROCEDURE: As mentioned above PLANNED PROCEDURE: Operation Date: 01/05/24 08:30 Proposed Procedures p Loop Recorder Removal(Not Applicable) - Blanca Nava MD
--- NOTE | 2024-01-05 08:56 | PM.OP ---
Operative Report Date of procedure: January 05, 2024 Surgeon: Blanca Nava MD Procedure: LOCATION: Cardiac Catheterization Laboratory REFERRING PROVIDER: Ms. Solo Mendenhall PREOPERATIVE DIAGNOSIS: Recurrent syncope. POSTOPERATIVE DIAGNOSIS: same ESTIMATED BLOOD LOSS: None COMPLICATIONS: None. BRIEF HISTORY: This is a 83-year-old white female with a history of recurrent syncope, had an ICM placement several years ago at an outside facility. Device has reached end-of-life. So it was decided to explant the device PROCEDURE: The procedure was explained to the patient in detail with the risks and benefits. The patient understood this well and consented to proceed. The patient was brought to the Cardiac Tape Edge Machine Operator. The left side of the neck and the precordial region were cleaned and draped in a sterile fashion. 1% Xylocaine was used as local anesthetic agent. Patient was given 2 gm of Keflex by mouth, half an hour prior to the procedure A 1/3 inch long incision was made near to the previous implantation scar. By sharp and blunt dissection, the residential monitor pocket was accessed. The device was delivered from the pocket. Complete hemostasis was achieved. I put a 1 subcutaneous 3-0 Vicryl suture to approximate the skin margins. The skin was approximated with Steri-Strips. EXPLANTED DEVICE: Reveal LINQ Model number: [id number] Serial number: [id number] Make: [employer] Pressure dressing was applied over the insertion site. The patient was transferred to the medical floor in stable condition.
[2024-01-05 09:05] VITALS: BP 135/98; PULSE 72; RESP 16; TEMP 36.6; O2SAT 94
[2024-01-05 10:00] VITALS: BP 133/89; PULSE 70; RESP 18; TEMP 36.6; O2SAT 96
== END 2024-01-05 06:37 | disposition home or self-care (01) ==
PROVIDERS: PCP Nurse Practitioner; Visit Provider Internal Medicine Cardiovascular Disease
PROC: (CPT 33286; principal; 2024-01-05 08:30)
DX: Z45.09 Encounter for adjustment and management of other cardiac device (principal); R55 Syncope and collapse; I73.9 Peripheral vascular disease, unspecified; E78.5 Hyperlipidemia, unspecified; I25.10 Atherosclerotic heart disease of native coronary artery without angina pectoris; I50.32 Chronic diastolic (congestive) heart failure; E11.69 Type 2 diabetes mellitus with other specified complication; K86.9 Disease of pancreas, unspecified; Z79.4 Long term (current) use of insulin
CPT/HCPCS: 33286; 36415; 85025; C1769

== ENCOUNTER → 2024-01-12 14:36 | Outpatient (BNVA) | payer MEDICARE, SELFPAY | PROVIDERS: PCP Nurse Practitioner; Visit Provider Internal Medicine Cardiovascular Disease | DX: I25.10 Atherosclerotic heart disease of native coronary artery without angina pectoris (principal); I73.9 Peripheral vascular disease, unspecified; E78.5 Hyperlipidemia, unspecified; I11.0 Hypertensive heart disease with heart failure; I50.9 Heart failure, unspecified; I48.20 Chronic atrial fibrillation, unspecified; Z98.890 Other specified postprocedural states | CPT/HCPCS: 99213 ==

== ENCOUNTER → 2024-03-29 09:06 | Outpatient (BNVA) | payer MEDICARE, SELFPAY | PROVIDERS: PCP Nurse Practitioner; Visit Provider Podiatrist Foot & Ankle Surgery | DX: L60.3 Nail dystrophy (principal); E11.40 Type 2 diabetes mellitus with diabetic neuropathy, unspecified; E11.69 Type 2 diabetes mellitus with other specified complication; K86.9 Disease of pancreas, unspecified; I73.9 Peripheral vascular disease, unspecified; R60.9 Edema, unspecified; Z79.4 Long term (current) use of insulin | CPT/HCPCS: 11721 ==

== ENCOUNTER 2024-05-01 08:48 | Outpatient (CLI) | payer MEDICARE, SELFPAY ==
[2024-05-01 10:18] LABS: Estmated Average Glucose 240
[2024-05-01 10:32] LABS: Creatinine Urine, Random 41 mg/dL (28-217); Microalbumin Random Urine 3 ug/dL (0-20)
[2024-05-01 10:34] LABS: 25 Hydroxy Vitamin D 43 ng/mL (30-100); Alanine Aminotransferase 21 U/L (0-33); Alkaline Phosphatase 118 U/L (35-105); Anion Gap 18.8 (5-19); Aspartate Amino Transferase 16 U/L (0-32); Blood Urea Nitrogen 14 mg/dL (8-23); Calcium 9.5 mg/dL (8.5-10.5); Carbon Dioxide 22 mmol/L (22-29); Chloride 102 mmol/L (98-107); Chol HDL Ratio 3.77 mg/dL (0.0-4.40); Cholesterol 132 mg/dL (0-200); Globulin 3.5 g/dL (1.3-4.6); Glucose 143 mg/dL (65-115); HDL Cholesterol 35 mg/dL (60-100); LDL Cholesterol Calculated 73 mg/dL (50-129); LDL HDL Ratio 2.09 RATIO (0.00-3.22); Osmolality Calculated 291 mOsm/kg (285-295); Potassium 3.8 mmol/L (3.5-5.1); Sodium 139 mmol/L (136-145); Thyroid Stimulating Hormone 3.71 uIU/mL (0.27-4.20); Total Bilirubin 0.3 mg/dL (0.15-1.2); Total Protein 7.5 g/dL (6.6-8.7); Triglycerides 121 mg/dL (0-150)
[2024-05-01 10:37] LABS: Microalbum Creatinine Ratio Ur 73 mg/dL (0-20)
[2024-05-01 11:01] LABS: Free T4 Free Thyroxine 1.23 ng/dL (0.82-1.77)
== END 2024-05-01 08:49 | disposition home or self-care (01) ==
LOC: LAB 08:49
PROVIDERS: PCP Nurse Practitioner; Visit Provider Internal Medicine
DX: M81.0 Age-related osteoporosis without current pathological fracture (principal); E11.69 Type 2 diabetes mellitus with other specified complication; E78.5 Hyperlipidemia, unspecified; K86.1 Other chronic pancreatitis; I50.9 Heart failure, unspecified
CPT/HCPCS: 36415; 80053; 80061; 82044; 82306; 83036; 84439; 84443; 99214

== ENCOUNTER 2024-06-15 17:39 | Emergency (ER) | payer MEDICARE, SELFPAY ==
[2024-06-15 17:44] VITALS: BP 169/80; PULSE 88; RESP 18; TEMP 36.7; O2SAT 95; BMI 28.5
--- NOTE | 2024-06-15 18:04 | XRR_ITS ---
PROCEDURE INFORMATION: Exam: XR Chest Exam date and time: 06/15/2024 6:42 PM Age: 84 years old Clinical indication: Injury or trauma; Fall; Blunt trauma (contusions or hematomas); Additional info: Altered mental status TECHNIQUE: Imaging protocol: Radiologic exam of the chest. Views: 1 view. COMPARISON: CR (CHEST, ) 09/24/2021 6:22 PM FINDINGS: Tubes, catheters and devices: Spinal stimulator device. Lungs: Unremarkable. No consolidation. Pleural spaces: Unremarkable. No pleural effusion. No pneumothorax. Heart/Mediastinum: Unremarkable. No cardiomegaly. Bones/joints: Shoulder joint degenerative changes bilaterally greater right. XR/XR chest 1V portable [id number] IMPRESSION: As above.
--- NOTE | 2024-06-15 18:25 | CTR_ITS ---
PROCEDURE INFORMATION: Exam: CT Head Without Contrast Exam date and time: 06/15/2024 7:00 PM Age: 84 years old Clinical indication: Injury or trauma; Fall; Other: AMS; Additional info: Altered mental status TECHNIQUE: Imaging protocol: Computed tomography of the head without contrast. Radiation optimization: All CT scans at this facility use at least one of these dose optimization techniques: automated exposure control; mA and/or kV adjustment per patient size (includes targeted exams where dose is matched to clinical indication); or iterative reconstruction. COMPARISON: CT head wo/w con [id number] 04/22/2021 8:27 AM RADIATION DOSE METRICS: Total DLP (mGy-cm): 1146.58 FINDINGS: Brain: Age-related brain parenchymal atrophy. Areas of hypoattenuation in the periventricular and subcortical deep white matter likely on the basis of chronic microvascular ischemic changes. No acute intra cranial hemorrhage. No mass effect or midline shift. No definitive CT evidence of acute territorial infarction. Cerebral ventricles: Mild ex vacuo prominence of the ventricular system. Paranasal sinuses: Visualized sinuses are unremarkable. No fluid levels. Mastoid air cells: Visualized mastoid air cells are well aerated. Bones: Intact calvarium. Soft tissues: Unremarkable. CT/CT head wo con* [id number] IMPRESSION: No acute intracranial process. Chronic changes.
--- NOTE | 2024-06-15 18:25 | XRR_ITS ---
PROCEDURE INFORMATION: Exam: XR Left Knee Exam date and time: 06/15/2024 6:49 PM Age: 84 years old Clinical indication: Injury or trauma; Fall; Blunt trauma; Knee; Left; Additional info: Fall pain TECHNIQUE: Imaging protocol: Radiologic exam of the left knee. Views: 3 views. COMPARISON: [place] [id number] ORTH 05/01/2020 1:45 PM FINDINGS: Bones/joints: Chondrocalcinosis. No acute fracture. No dislocation. Soft tissues: Normal. Vasculature: Vascular calcifications. XR/XR knee LT 3V* [id number] IMPRESSION: As above.
--- NOTE | 2024-06-15 18:25 | XRR_ITS ---
PROCEDURE INFORMATION: Exam: XR Left Hip Exam date and time: 06/15/2024 6:45 PM Age: 84 years old Clinical indication: Injury or trauma; Fall; Blunt trauma (contusions or hematomas); Left; Hip; Additional info: Fall pain TECHNIQUE: Imaging protocol: Radiologic exam of the left hip. Views: 2 or 3 views hip with pelvis when performed. COMPARISON: CT abdomen pelvis w con* [id number] 09/24/2021 7:56 PM FINDINGS: Bones/joints: Degenerative changes involving the joint. No acute fracture or dislocation. No sacroiliac or pubic symphyseal joint widening. Soft tissues: Unremarkable. Intraperitoneal space: The visualized portions of the pelvis appear intact. XR/XR hip LT 2-3V wo/w pel* [id number] IMPRESSION: As above.
[2024-06-15 18:27] LABS: Basophils % 0.2 %; Eosinophils # 0.1 10^3/uL (0.0-0.8); Eosinophils % 1.5 %; Hematocrit 40.5 % (36-47); Lymphocytes # 3.9 10^3/uL (0.8-4.8); Mean Corpuscular HGB Conc 32.3 g/dL (30-55); Mean Corpuscular Hemoglobin 28.3 pg (27-33); Mean Corpuscular Volume 87.5 fl (85-98); Mean Platelet Volume 9.3 fL (7.4-10.4); Monocytes # 0.8 10^3/uL (0.2-0.9); Monocytes % 8.9 %; Neutrophils # 3.83 10^3/uL (1.8-7.7); Neutrophils % 43.9 %; Nucleated Red Blood Cells % 0 %; Platelet Count 346 10^3/cmm (157-399); Red Blood Count 4.63 10^6/uL (3.85-5.65); Red Cell Distribution Width 13.3 % (12.1-15.1); White Blood Count 8.73 10^3/uL (3.29-11.43)
[2024-06-15 18:46] LABS: Alanine Aminotransferase 25 U/L (0-33); Albumin Level 4.2 g/dL (3.5-5.2); Alkaline Phosphatase 131 U/L (35-105); Anion Gap 15.3 (5-19); Aspartate Amino Transferase 19 U/L (0-32); Blood Urea Nitrogen 10 mg/dL (8-23); Calcium 9.7 mg/dL (8.5-10.5); Carbon Dioxide 28 mmol/L (22-29); Chloride 99 mmol/L (98-107); Globulin 3.8 g/dL (1.3-4.6); Glucose 185 mg/dL (65-115); Magnesium 1.7 mg/dL (1.7-2.3); Osmolality Calculated 292 mOsm/kg (285-295); Potassium 3.3 mmol/L (3.5-5.1); Sodium 139 mmol/L (136-145); Total Bilirubin 0.5 mg/dL (0.15-1.2)
--- NOTE | 2024-06-15 18:58 | W.ED.AMS ---
HPI - Altered Mental Status General: Chief Complaint: Altered Mental Status Stated Complaint: ams & falling alot Time Seen by Provider: 06/15/24 17:59 History of Present Illness: Patient presents to the ER PCP due to multiple falls over the last for 5 days with confusion and hallucinations. Family is with patient at bedside and says it does get worse throughout the afternoon into the night. Patient is usually alert oriented very coherent but is been seeing people are not there talking to people that are not there and saying things just do not make sense. Patient does complain of pain in her left hip and left knee since her falls. Related Data Home Medications Medication Instructions Recorded Confirmed apple cider vinegar 300 mg tablet 450 mg PO BID 12/21/19 06/15/24 cinnamon bark 500 mg capsule 500 mg PO BID 06/24/20 06/15/24 (Cinnamon) lansoprazole 30 mg capsule,delayed 30 mg PO BID Pain 01/30/22 06/15/24 release (Prevacid) multivitamin 1 tab PO DAILY 07/30/22 06/15/24 lactobacillus combination no.4 3 3,000 mmu cells PO DAILY 10/05/22 06/15/24 billion cell capsule (Probiotic) Previous Rx's Medication Instructions Recorded nebulizers (Innospire Go Nebulizer #1 ea 05/30/21 [facility] [place]) cholecalciferol (vitamin D3) 25 25 mcg PO DAILY #30 caps 09/01/21 mcg (1,000 unit) capsule inhalational spacing device (Space #1 ea 09/24/21 Chamber) zoledronic acid 4 mg intravenous 5 mg IV .[id number] #1 ea 12/16/21 solution mupirocin 2 % topical ointment 1 applic topical BID #22 grams 06/24/22 blood-glucose meter,continuous #1 ea 10/05/22 (Dexcom G7 Public Stenographer) blood-glucose sensor (Dexcom G7 #6 ea 10/05/22 Sensor device) pregabalin 25 mg capsule (Lyrica) 25 mg PO DAILY #90 caps 10/05/22 albuterol sulfate 90 mcg/actuation 2 puff inhalation Q6H PRN 11/03/22 aerosol inhaler (ProAir HFA) shortness of breath or wheezing #8.5 grams triamcinolone acetonide 0.1 % 1 applic topical DAILY #30 grams 02/23/23 topical ointment RSVPreF3 antigen-AS01E 0.5 ml IM ONCE #10 ea 04/01/23 adjuvant(PF) 120 mcg/0.5 mL IM suspension, kit blood sugar diagnostic (Prodigy No #200 ea 09/13/23 Coding strips) furosemide 40 mg tablet 40 mg PO DAILY PRN edema #90 tabs 09/14/23 diabetic shoes with 3 inserts #1 ea 09/23/23 lipase 21,000-protease 3 cap PO .6 TIMES DAILY #400 caps 11/10/23 54,700-amylase 83,900 unit capsule,delayed rel (Pancreaze) albuterol sulfate 2.5 mg/3 mL 2.5 mg (3 mL) inhalation Q6H PRN 01/21/24 (0.083 %) solution for nebulization shortness of breath or wheezing #90 mL insulin glargine 100 unit/mL (3 See Rx Instructions .Route 01/21/24 mL) subcutaneous pen (Lantus .COMPLEX #15 mL Solostar U-100 Insulin) insulin aspart U-100 100 unit/mL See Rx Instructions .Route 03/16/24 (3 mL) subcutaneous pen (Novolog .COMPLEX #21.6 mL FlexPen U-100 Insulin aspart) DME: Walker #1 ea 03/30/24 diabetic shoes with 3 inserts #1 ea 05/29/24 atorvastatin 40 mg tablet See Rx Instructions .Route 06/08/24 .COMPLEX #90 tabs clopidogrel 75 mg tablet (Plavix) 75 mg PO DAILY #90 tabs 06/08/24 diltiazem HCl 180 mg 180 mg PO DAILY #90 caps 06/08/24 capsule,extended release 24 hr, controlled (DILT-XR) hydralazine 50 mg tablet 50 mg PO BID #180 tabs 06/08/24 isosorbide mononitrate 120 mg 120 mg PO DAILY #90 tabs 06/08/24 tablet,extended release 24 hr losartan 100 mg tablet 100 mg PO DAILY #90 tabs 06/08/24 metoprolol tartrate 25 mg tablet 25 mg PO TID #300 tabs 06/08/24 nitroglycerin 0.4 mg sublingual 0.4 mg sublingual Q5M PRN chest 06/08/24 tablet pain 30 days #30 tabs potassium chloride 10 mEq 20 meq (2 x 10 mEq) PO DAILY PRN 06/08/24 capsule,extended release CHF #90 caps bupropion HCl 150 mg tablet,12 hr 150 mg PO BID #180 tabs 06/15/24 sustained-release ciprofloxacin HCl 500 mg tablet 500 mg PO Q12H #20 tabs 06/15/24 fluticasone 500 mcg-salmeterol 50 1 inh inhalation BID #60 ea 06/15/24 mcg/dose blistr powdr for inhalation (Advair Diskus) Allergies Allergy/AdvReac Type Severity Reaction Status Date / Time adhesive tape Allergy Mild ALGY-Rash Verified 06/15/24 15:16 chicken derived Allergy Unknown Unknown Verified 06/15/24 15:16 alcohol Allergy nausea Verified 06/15/24 15:16 aspirin Allergy ADR-Nose Verified 06/15/24 15:16 Bleed bacitracin Allergy ALGY-Hives Verified 06/15/24 15:16 [From Neosporin ([id number])] bee venom protein (honey bee) Allergy ALGY-Swell Verified 06/15/24 15:16 Lip/Tongue/Throat chocolate Allergy ADR-Nausea Verified 06/15/24 15:16 chocolate flavor Allergy ADR-Nausea Verified 06/15/24 15:16 morphine Allergy Unknown Verified 06/15/24 15:16 neomycin Allergy ALGY-Hives Verified 06/15/24 15:16 [From Neosporin ([id number])] Penicillins Allergy ALGY-Hives Verified 06/15/24 15:16 polymyxin B Allergy ALGY-Hives Verified 06/15/24 15:16 [From Neosporin ([id number])] Review of Systems General: Reports: 10 or more systems reviewed and unremarkable except in HPI and below PFSH ED PFSH: Medical History Chronic episodic atrial fibrillation Patient did not want to take any oral anticoagulation because of the side effects Status post placement of implantable loop recorder Recurrent syncope EKG from today 01/16/2020- revealed normal sinus rhythm with early repolarization changes in the inferolateral leads. No acute ST-T changes are noted. Normal VA interval with nonspecific intraventricular conduction delay Atypical chest pain Atherosclerotic heart disease of [place] coronary artery without angina pectoris Patient had the cardiac catheterization in [place], in 2014. At that time, she was found to have mild diffuse coronary artery disease. Rotator cuff arthropathy Appendicitis, acute Cataract Diabetes mellitus associated with pancreatic disease Vitamin D deficiency Congestive heart failure Chronic pancreatitis Dyslipidemia COPD (chronic obstructive pulmonary disease) Peripheral vascular disease Surgical History Status post insertion of nerve stimulator 2010 in [place] Hip joint replacement by other means History of appendectomy History of nasal surgery Hx of toe surgery Hx of hysterectomy, total History of back surgery Family History Brother Bleeding disorder Clotting disorder CAD (coronary artery disease) Stroke Father CAD (coronary artery disease) Cancer Chronic kidney disease (CKD) Sister CAD (coronary artery disease) Cancer Lung disease Diabetes Grandmother Cancer Grandfather CAD (coronary artery disease) Other Hypertension Denies family history of Dementia Suicide Anesthesia complication Social History Smoking and tobacco/nicotine status: former use of tobacco/nicotine Quit status (tobacco/nicotine): has quit using Year quit tobacco: 2017 - PPD x 65 Years Second hand smoke exposure: No Alcohol intake: never Substance/Drug Use: never Adopted: No Caregiver/support person: No Lives independently: Yes Household members: none Housing: House Marital status: / service: No Current occupational status: retired Pets and animals: No Do you think of yourself as: Straight/Heterosexual Current gender identity: Female Physical Exam Const: COMMON NORMALS: no acute distress, average body habitus, patient oriented x3, no limitations, healthy appearing, alert and well nourished HENMT: COMMON NORMALS: normocephalic, atraumatic, hearing grossly normal bilaterally, external ears normal, Normal external nose present and moist oral mucous membranes HEAD & SCALP: normocephalic and atraumatic NOSE: Normal external nose present EXTERNAL EAR: Yes external ears normal Eye: COMMON NORMALS: Equal, round and reactive pupils present, EOMs intact bilaterally, conjunctivae normal and no scleral icterus CONJUNCTIVA: Yes conjunctivae normal PUPIL: Yes Equal, round and reactive pupils present Neck/C-Spine: COMMON NORMALS: full ROM, no lymphadenopathy, supple, no meningeal signs, no JVD and Thyroid normal THYROID: Thyroid normal Chest: COMMONS NORMALS: normal inspection of the chest and normal palpation of entire chest wall Resp: COMMON NORMALS: normal respiratory effort, No retractions, No use of accessory muscles and clear to auscultation bilaterally AUSCULTATION: clear to auscultation bilaterally Cardio: COMMON NORMALS: no JVD, regular rate, regular rhythm, S1 normal heart sound present, S2 normal heart sound present, No gallops present (Cardio), No clicks present (Cardio), No murmurs present (Cardio) and No rub (Cardio) RATE: regular rate RHYTHM: regular rhythm HEART SOUNDS: S1 normal heart sound present and S2 normal heart sound present GI: COMMON NORMALS: Normal to inspection, nondistended, normoactive bowel sounds present, Soft to palpation, non-tender, No hepatosplenomegaly present and no masses PALPATION: Yes Soft to palpation and Yes No hepatosplenomegaly present Neuro: COMMON NORMALS: patient oriented x3 SENSORIUM/ORIENTATION: Yes alert MENINGEAL SIGNS: Yes no meningeal signs Course Vital Signs: Vital signs: Vital Signs Temperature 98.1 F 06/15/24 17:44 Pulse Rate 87 06/15/24 19:32 Respiratory Rate 24 H 06/15/24 19:32 Blood Pressure 144/114 06/15/24 19:32 Pulse Oximetry 95 06/15/24 19:32 Oxygen Delivery Me thod Room Air 06/15/24 17:44 MDM - Altered Mental Status Medical Decision Making After physical exam lab multiple imaging. These results was discussed with patient and her family. No obvious source of her symptomatology other than possibly super mild urinary tract infection. Will treat her urinary tract infection with Cipro. We discussed as this may be a potential cause of her alteration however it may just be progression of dementia or sundowning. Medical Records I reviewed the patient's medical records. Lab Data I reviewed the patient's lab results. 06/15/24 18:15 06/15/24 18:15 Radiology Impressions Chest X-Ray 06/15/24 18:04 IMPRESSION: As above. Head CT 06/15/24 18:25 IMPRESSION: No acute intracranial process. Chronic changes. Hip/Pelvis X-Ray 06/15/24 18:25 IMPRESSION: As above. Knee X-Ray 06/15/24 18:25 IMPRESSION: As above. Laboratory Results WBC 8.73 10^3/uL (3.29-11.43) 06/15/24 18:15 RBC 4.63 10^6/uL (3.85-5.65) 06/15/24 18:15 Hgb 13.10 g/dL (11.27-16.99) 06/15/24 18:15 Hct 40.5 % (36-47) 06/15/24 18:15 MCV 87.5 fl (85-98) 06/15/24 18:15 MCH 28.3 pg (27-33) 06/15/24 18:15 MCHC 32.3 g/dL (30-55) 06/15/24 18:15 RDW 13.3 % (12.1-15.1) 06/15/24 18:15 Plt Count 346 10^3/cmm (157-399) 06/15/24 18:15 MPV 9.3 fL (7.4-10.4) 06/15/24 18:15 Neut % (Auto) 43.9 % 06/15/24 18:15 Lymph % (Auto) 45.0 % 06/15/24 18:15 [place] % (Auto) 8.9 % 06/15/24 18:15 Eos % (Auto) 1.5 % 06/15/24 18:15 Baso % (Auto) 0.2 % 06/15/24 18:15 Neut # (Auto) 3.83 10^3/uL (1.8-7.7) 06/15/24 18:15 Lymph # (Auto) 3.9 10^3/uL (0.8-4.8) 06/15/24 18:15 [place] # (Auto) 0.8 10^3/uL (0.2-0.9) 06/15/24 18:15 Eos # (Auto) 0.1 10^3/uL (0.0-0.8) 06/15/24 18:15 Baso # (Auto) 0.0 10^3/uL (0.0-0.1) 06/15/24 18:15 Nucleated RBC % (auto) 0 % 06/15/24 18:15 Nucleated RBCs # 0.0 /100WBC 06/15/24 18:15 Sodium 139 mmol/L (136-145) 06/15/24 18:15 Potassium 3.3 mmol/L (3.5-5.1) L 06/15/24 18:15 Chloride 99 mmol/L (98-107) 06/15/24 18:15 Carbon Dioxide 28 mmol/L (22-29) 06/15/24 18:15 Anion Gap 15.3 (5-19) 06/15/24 18:15 BUN 10 mg/dL (8-23) 06/15/24 18:15 Creatinine 0.9 mg/dL (0.5-0.9) 06/15/24 18:15 GFR Calculation Not Reportable 06/15/24 18:15 Glucose 185 mg/dL (65-115) H 06/15/24 18:15 Calculated Osmolality 292 mOsm/kg (285-295) 06/15/24 18:15 Calcium 9.7 mg/dL (8.5-10.5) 06/15/24 18:15 Magnesium 1.7 mg/dL (1.7-2.3) 06/15/24 18:15 Total Bilirubin 0.5 mg/dL (0.15-1.2) 06/15/24 18:15 AST 19 U/L (0-32) 06/15/24 18:15 ALT 25 U/L (0-33) 06/15/24 18:15 Alkaline Phosphatase 131 U/L (35-105) H 06/15/24 18:15 Total Protein 8.0 g/dL (6.6-8.7) 06/15/24 18:15 Albumin 4.2 g/dL (3.5-5.2) 06/15/24 18:15 Globulin 3.8 g/dL (1.3-4.6) 06/15/24 18:15 Urine Color Yellow (Yellow) 06/15/24 19:35 Urine Appearance Clear (CLEAR) 06/15/24 19:35 Urine pH 6.0 (5-7) 06/15/24 19:35 Ur Specific [place] 1.006 (1.005-1.030) 06/15/24 19:35 Urine Protein Negative (Negative) 06/15/24 19:35 Urine Glucose (UA) Negative (Normal) 06/15/24 19:35 Urine Ketones Negative (Negative) 06/15/24 19:35 Urine Blood Negative (Negative) 06/15/24 19:35 Urine Nitrate Negative (Negative) 06/15/24 19:35 Urine Bilirubin Negative (Negative) 06/15/24 19:35 Urine Urobilinogen 0.2 mg/dL (Negative) 06/15/24 19:35 Ur Leukocyte Esterase Trace (Negative) A 06/15/24 19:35 Urine RBC 0-2 /hpf (0-2) 06/15/24 19:35 Urine WBC 0-5 /hpf (0-5) 06/15/24 19:35 Ur Squamous Epith Cells 0-5 /hpf (0-5) 06/15/24 19:35 Amorphous Sediment Not Reportable 06/15/24 19:35 Urine Bacteria None seen /hpf (NONE) 06/15/24 19:35 Hyaline Casts 0-4 /lpf H 06/15/24 19:35 Urine Opiates Screen Negative ng/mL (Negative) 06/15/24 19:35 Ur Barbiturates Screen Negative ng/mL (Negative) 06/15/24 19:35 Ur Phencyclidine Scrn Negative ng/mL (Negative) 06/15/24 19:35 Ur Amphetamines Screen Negative ng/mL (Negative) 06/15/24 19:35 U Benzodiazepines Scrn Negative ng/mL (Negative) 06/15/24 19:35 Urine Cocaine Screen Negative ng/mL (Negative) 06/15/24 19:35 U Marijuana (THC) Screen Negative ng/mL (Negative) 06/15/24 19:35 All radiology interpretation(s) finalized by discharge Discharge Plan Discharge Patient Disposition: Home Clinical Impression: Urinary tract infection, Acute alteration in mental status Condition: Stable Prescriptions: New ciprofloxacin HCl 500 mg tablet 500 mg PO Q12H Qty: 20 0RF No Action apple cider vinegar 300 mg tablet 450 mg PO BID cinnamon bark [Cinnamon] 500 mg capsule 500 mg PO BID cholecalciferol (vitamin D3) 25 mcg (1,000 unit) capsule 25 mcg PO DAILY Qty: 30 0RF lansoprazole [Prevacid] 30 mg capsule,delayed release(DR/EC) 30 mg PO BID zoledronic acid 4 mg recon soln 5 mg IV .[id number] Qty: 1 0RF Rx Instructions: will get the infusion at the GI lab RSVPreF3 antigen-AS01E (PF) 120 mcg/0.5 mL suspension for reconstitution 0.5 ml IM ONCE Qty: 10 0RF triamcinolone acetonide 0.1 % ointment 1 applic topical DAILY Qty: 30 0RF Rx Instructions: apply leg atorvastatin 40 mg tablet See Rx Instructions .ROUTE .COMPLEX Qty: 90 3RF Dose Instruction: TAKE ONE TABLET BY MOUTH DAILY Rx Instructions: TAKE ONE TABLET BY MOUTH DAILY clopidogrel [Plavix] 75 mg tablet 75 mg PO DAILY Qty: 90 3RF diltiazem HCl [DILT-XR] 180 mg capsule,ext.rel 24h degradable 180 mg PO DAILY Qty: 90 3RF hydralazine 50 mg tablet 50 mg PO BID Qty: 180 3RF isosorbide mononitrate 120 mg tablet extended release 24 hr 120 mg PO DAILY Qty: 90 3RF losartan 100 mg tablet 100 mg PO DAILY Qty: 90 3RF metoprolol tartrate 25 mg tablet 25 mg PO TID Qty: 300 6RF nitroglycerin 0.4 mg tablet, sublingual 0.4 mg sublingual Q5M PRN (Reason: chest pain) 30 Days Qty: 30 3RF Rx Instructions: until response; do not exceed 3 doses per episode potassium chloride 10 mEq capsule, extended release 20 meq PO DAILY PRN (Reason: CHF) Qty: 90 2RF (DME) DME: Walker Unit See Rx Instructions .ROUTE .MEDSUPPLY Qty: 1 0RF Rx Instructions: Code E0143 and E0156 walker 4 wheels and seat bupropion HCl 150 mg tablet sustained-release 12 hr 150 mg PO BID Qty: 180 1RF fluticasone propion-salmeterol [Advair Diskus] 500-50 mcg/dose blister with device 1 inh inhalation BID Qty: 60 5RF multivitamin Tablet 1 tab PO DAILY (DME) Dexcom G7 Sensor Device See Rx Instructions .ROUTE .MEDSUPPLY Qty: 6 0RF Rx Instructions: Change every 10days (DME) Dexcom G7 Public Stenographer Misc See Rx Instructions .Route Qty: 1 0RF Rx Instructions: As directed pregabalin [Lyrica] 25 mg capsule 25 mg PO DAILY Qty: 90 0RF furosemide 40 mg tablet 40 mg PO DAILY PRN (Reason: edema) Qty: 90 0RF (DME) diabetic shoes with 3 inserts See Rx Instructions .Route .MEDSUPPLY Qty: 1 0RF Rx Instructions: As directed to HOME. BC/BS want a 75.00 copay and patient wants it submitted again with additional diagnosis. (DME) Innospire Go Nebulizer Misc See Rx Instructions .Route Qty: 1 0RF Rx Instructions: As directed mupirocin 2 % ointment 1 applic topical BID Qty: 22 1RF Rx Instructions: Apply to affected area(s) until healed albuterol sulfate [ProAir HFA] 90 mcg/actuation HFA aerosol inhaler 2 puff inhalation Q6H PRN (Reason: shortness of breath or wheezing) Qty: 8.5 5RF Rx Instructions: 340B (DME) Prodigy No Coding Strip See Rx Instructions .Route Qty: 200 0RF Rx Instructions: As directed Pancreaze 21,000-54,700- 83,900 unit capsule,delayed release(DR/EC) 3 cap PO .6 TIMES DAILY Qty: 400 3RF Rx Instructions: administer with meals insulin glargine [Lantus Solostar U-100 Insulin] 100 unit/mL (3 mL) insulin pen See Rx Instructions .ROUTE .COMPLEX Qty: 15 1RF Dose Instruction: INJECT 32 UNITS SUBCUTANEOUSLY TWICE DAILY; MAX DAILY DOSE:64 UNITS Rx Instructions: INJECT 32 UNITS SUBCUTANEOUSLY TWICE DAILY; MAX DAILY DOSE:64 UNITS albuterol sulfate 2.5 mg /3 mL (0.083 %) solution for nebulization 2.5 mg inhalation Q6H PRN (Reason: shortness of breath or wheezing) Qty: 90 6RF insulin aspart U-100 [Novolog FlexPen U-100 Insulin] 100 unit/mL (3 mL) insulin pen See Rx Instructions .ROUTE .COMPLEX Qty: 21.6 1RF Dose Instruction: INJECT EIGHT UNITS SUBCUTANEOUSLY THREE TIMES DAILY Rx Instructions: INJECT EIGHT UNITS SUBCUTANEOUSLY THREE TIMES DAILY (DME) Diabetic Shoes with 3 Inserts See Rx Instructions .Route .MEDSUPPLY Qty: 1 0RF Rx Instructions: As directed to HOME (DME) Space Chamber Spacer See Rx Instructions .Route Qty: 1 0RF Rx Instructions: As directed Probiotic 3 billion cell Capsule 3,000 mmu cells PO DAILY Rx Instructions: administer with a meal Discharge Orders: Discharge ED (Routine); Ordered 06/15/24 Ordered By: Michael Araya Referrals: Solo Mendenhall, [facility]UTION[facility]ITION CONSULTANT[facility] [Primary Care Provider] - 1 week Patient Instructions: Altered Mental Status (ED), Urinary Tract Infection in Older Adults (ED) Activity Restrictions/Additional Instructions: Your evaluation in the ER that included physical exam, blood work, urinalysis, multiple imaging modalities only showed you may have a slight urinary tract infection. After long talk with your family this may be the cause of your alteration in mental status and frequent falls or may be the beginning of something like dementia or Alzheimer's. We have prescribed Cipro as an antibiotic to treat your urine as a urinary tract infection. If this does not clear up your symptoms you may need to be evaluated more for Alzheimer's or dementia. Please follow-up with your family practice physician within next 7 days for further evaluation treatment. Coding Level of Care Code ED Digital Forensic Examiner for Fiordaliza Ribeiro
[2024-06-15 19:32] VITALS: BP 144/114; PULSE 87; RESP 24; O2SAT 95
[2024-06-15 19:43] LABS: Bilirubin Urine Negative (Negative); Blood Urine Negative (Negative); Glucose Urine UA Negative (Normal); Ketones Urine Negative (Negative); Leukocyte Esterase Urine Trace (Negative); Nitrate Urine Negative (Negative); Protein Urine Negative (Negative); Specific Gravity, Urine 1.006 (1.005-1.030); Urine Appearance Clear (CLEAR); Urine Color Yellow (Yellow); Urobilinogen Urine 0.2 mg/dL (Negative)
[2024-06-15 19:48] LABS: Add Urine Microscopic? YES; Bacteria Urine None Seen /hpf; Hyaline Casts Urine 0-4 /lpf; RBC Urine 0-2 /hpf (0-2); Squamous Epithelial Cell Urine 0-5 /hpf (0-5); WBC Urine 0-5 /hpf (0-5)
[2024-06-15 19:49] LABS: Amphetamines Screen Urine Negative (Negative); Barbiturates Screen Urine Negative (Negative); Benzodiazepines Screen Urine Negative (Negative); Cocaine Screen Urine Negative (Negative); Opiate Screen Urine Negative (Negative); PCP Screen Urine Negative (Negative); THC Screen Urine Negative (Negative)
[2024-06-15 19:51] LABS: Add Urine Culture? No
[2024-06-15] MEDS: ciprofloxacin 500 mg Tablet PO (20:30)
[2024-06-15 20:46] VITALS: PULSE 80; RESP 22; O2SAT 94
== END 2024-06-15 20:47 | disposition home or self-care (01) ==
PROVIDERS: Emergency Provider Emergency Medicine; PCP Nurse Practitioner
DX: N39.0 Urinary tract infection, site not specified (principal); R41.82 Altered mental status, unspecified; Z79.02 Long term (current) use of antithrombotics/antiplatelets; Z79.4 Long term (current) use of insulin; Z87.891 Personal history of nicotine dependence; J44.9 Chronic obstructive pulmonary disease, unspecified; I25.10 Atherosclerotic heart disease of native coronary artery without angina pectoris; I50.9 Heart failure, unspecified; E11.9 Type 2 diabetes mellitus without complications
CPT/HCPCS: 36415; 70450; 71045; 73502; 73562; 80053; 80306; 81000; 81001; 83735; 85025; 99284

== ENCOUNTER 2024-07-12 10:37 | Outpatient (CLI) | payer MEDICARE, SELFPAY ==
--- NOTE | 2024-07-12 12:15 | USR_ITS ---
PROCEDURE INFORMATION: Exam: US Duplex Right Lower Extremity Arteries Or Arterial Bypass Grafts Exam date and time: 07/12/2024 11:09 AM Age: 84 years old Clinical indication: Pain; Leg, lower; Right; Additional info: I73.9 - peripheral vascular disease, unspecified TECHNIQUE: Imaging protocol: Right Real-time duplex scan of the arteries or arterial bypass grafts of the right lower extremity with 2-D morrison scale, color Doppler flow and spectral waveform analysis. Images documented and saved. COMPARISON: US renal BI* [id number] 08/06/2023 10:37 AM FINDINGS: Right external iliac artery: Right external iliac artery demonstrates a mildly abnormal monophasic waveform with sharp systolic upstroke and forward flow through diastole with peak velocity 73 cm/s. Mild visible luminal narrowing. Moderate plaque. Right common femoral artery: Mildly abnormal monophasic waveform with sharp systolic upstroke and forward flow through diastole. Peak velocity 68 cm/s. Right superficial femoral artery: Mildly abnormal monophasic waveform with sharp systolic upstroke and forward flow through diastole. Peak velocity 61 cm/second. Mild visible luminal narrowing. Moderate plaque. Right popliteal artery: Moderately abnormal monophasic waveform with blunted systolic upstroke and forward flow through diastole. Peak velocity 36 cm/second. Mild visible luminal narrowing. Moderate plaque. Right calf/foot arteries: Right posterior tibial artery demonstrates a markedly abnormal parvus tardus waveform with peak velocity 19 cm/s. Right dorsalis pedis artery demonstrates a moderately abnormal monophasic waveform with blunted systolic upstroke and forward flow through diastole with peak velocity 55 cm/second. Soft tissues: Unremarkable. US/[place] [id number] IMPRESSION: 1. Mildly abnormal right external iliac artery waveform. This finding suggests hemodynamically significant stenosis upstream in the common iliac artery. 2. No focal hemodynamically significant arterial stenosis is identified in the right external iliac, common femoral, superficial femoral, or popliteal arteries. 3. Parvus tardus waveform in the right posterior tibial artery indicates hemodynamically significant stenosis beyond the popliteal artery. 4. Dorsalis pedis artery is patent.
== END 2024-07-12 10:38 | disposition home or self-care (01) ==
LOC: RAD 10:38
PROVIDERS: PCP Nurse Practitioner; Visit Provider Nurse Practitioner
DX: I73.9 Peripheral vascular disease, unspecified (principal); R93.6 Abnormal findings on diagnostic imaging of limbs; I70.8 Atherosclerosis of other arteries
CPT/HCPCS: 93926

== ENCOUNTER → 2024-08-01 09:03 | Outpatient (BNVA) | payer MEDICARE, SELFPAY | PROVIDERS: PCP Nurse Practitioner; Visit Provider Internal Medicine | DX: K86.1 Other chronic pancreatitis (principal); R94.6 Abnormal results of thyroid function studies; E11.40 Type 2 diabetes mellitus with diabetic neuropathy, unspecified; E11.69 Type 2 diabetes mellitus with other specified complication; K86.9 Disease of pancreas, unspecified; M81.0 Age-related osteoporosis without current pathological fracture; E78.5 Hyperlipidemia, unspecified | CPT/HCPCS: 99214 ==

== ENCOUNTER → 2024-08-15 09:02 | Outpatient (BNVA) | payer MEDICARE, SELFPAY | PROVIDERS: PCP Nurse Practitioner; Visit Provider Internal Medicine | DX: E11.69 Type 2 diabetes mellitus with other specified complication (principal); K86.9 Disease of pancreas, unspecified; R94.6 Abnormal results of thyroid function studies; E78.5 Hyperlipidemia, unspecified; I50.9 Heart failure, unspecified; M81.0 Age-related osteoporosis without current pathological fracture; K86.1 Other chronic pancreatitis; E11.65 Type 2 diabetes mellitus with hyperglycemia; E11.40 Type 2 diabetes mellitus with diabetic neuropathy, unspecified; R79.89 Other specified abnormal findings of blood chemistry | CPT/HCPCS: 80053; 80061; 82043; 82306; 82951; 83036; 84439; 84443; 84681; 86337; 86341 ==

== ENCOUNTER → 2024-08-22 08:46 | Outpatient (BNVA) | payer MEDICARE, SELFPAY | PROVIDERS: PCP Nurse Practitioner; Visit Provider Dermatology | DX: L82.1 Other seborrheic keratosis (principal); D18.01 Hemangioma of skin and subcutaneous tissue; D48.5 Neoplasm of uncertain behavior of skin; L57.0 Actinic keratosis | CPT/HCPCS: 11102; 17000; 69100; 99213 ==

== ENCOUNTER → 2024-09-13 09:11 | Outpatient (BNVA) | payer MEDICARE, SELFPAY | PROVIDERS: PCP Nurse Practitioner; Visit Provider Podiatrist Foot & Ankle Surgery | DX: E11.69 Type 2 diabetes mellitus with other specified complication (principal); L60.3 Nail dystrophy; E11.621 Type 2 diabetes mellitus with foot ulcer; E11.40 Type 2 diabetes mellitus with diabetic neuropathy, unspecified; K86.9 Disease of pancreas, unspecified; I73.9 Peripheral vascular disease, unspecified; R60.9 Edema, unspecified; L03.90 Cellulitis, unspecified; L97.512 Non-pressure chronic ulcer of other part of right foot with fat layer exposed; L03.116 Cellulitis of left lower limb; Z79.4 Long term (current) use of insulin | CPT/HCPCS: 11721; 99214 ==

== ENCOUNTER → 2024-09-20 09:37 | Outpatient (BNVA) | payer MEDICARE, SELFPAY | PROVIDERS: PCP Nurse Practitioner; Visit Provider Podiatrist Foot & Ankle Surgery | DX: E11.621 Type 2 diabetes mellitus with foot ulcer (principal); L97.512 Non-pressure chronic ulcer of other part of right foot with fat layer exposed; L60.3 Nail dystrophy; E11.40 Type 2 diabetes mellitus with diabetic neuropathy, unspecified; E11.69 Type 2 diabetes mellitus with other specified complication; K86.9 Disease of pancreas, unspecified; I73.9 Peripheral vascular disease, unspecified; R60.9 Edema, unspecified; L03.90 Cellulitis, unspecified; Z79.4 Long term (current) use of insulin | CPT/HCPCS: 99213 ==

== ENCOUNTER → 2024-10-12 09:21 | Outpatient (BNVA) | payer MEDICARE, SELFPAY | PROVIDERS: PCP Nurse Practitioner; Visit Provider Podiatrist Foot & Ankle Surgery | DX: E11.621 Type 2 diabetes mellitus with foot ulcer (principal); L60.3 Nail dystrophy; E11.40 Type 2 diabetes mellitus with diabetic neuropathy, unspecified; E11.69 Type 2 diabetes mellitus with other specified complication; K86.9 Disease of pancreas, unspecified; I73.9 Peripheral vascular disease, unspecified; R60.9 Edema, unspecified; L03.90 Cellulitis, unspecified; L97.512 Non-pressure chronic ulcer of other part of right foot with fat layer exposed; L03.115 Cellulitis of right lower limb; Z79.4 Long term (current) use of insulin | CPT/HCPCS: 99213 ==

== ENCOUNTER → 2024-10-31 09:11 | Outpatient (BNVA) | payer MEDICARE, SELFPAY | PROVIDERS: PCP Nurse Practitioner; Visit Provider Internal Medicine | DX: E11.40 Type 2 diabetes mellitus with diabetic neuropathy, unspecified (principal); E11.69 Type 2 diabetes mellitus with other specified complication; R94.6 Abnormal results of thyroid function studies; E78.5 Hyperlipidemia, unspecified | CPT/HCPCS: 99214 ==

== ENCOUNTER → 2024-11-14 09:22 | Outpatient (BNVA) | payer MEDICARE, SELFPAY | PROVIDERS: PCP Nurse Practitioner; Visit Provider Podiatrist Foot & Ankle Surgery | DX: E11.40 Type 2 diabetes mellitus with diabetic neuropathy, unspecified (principal); L60.3 Nail dystrophy; E11.69 Type 2 diabetes mellitus with other specified complication; K86.9 Disease of pancreas, unspecified; I73.9 Peripheral vascular disease, unspecified; R60.9 Edema, unspecified; Z79.4 Long term (current) use of insulin | CPT/HCPCS: 99213 ==

== ENCOUNTER → 2024-11-28 11:14 | Outpatient (BNVA) | payer MEDICARE, SELFPAY | PROVIDERS: PCP Nurse Practitioner; Visit Provider Internal Medicine Cardiovascular Disease | DX: I25.10 Atherosclerotic heart disease of native coronary artery without angina pectoris (principal); I11.0 Hypertensive heart disease with heart failure; I50.9 Heart failure, unspecified; I45.10 Unspecified right bundle-branch block; E78.5 Hyperlipidemia, unspecified; I73.9 Peripheral vascular disease, unspecified; I48.20 Chronic atrial fibrillation, unspecified; Z79.02 Long term (current) use of antithrombotics/antiplatelets; Z95.818 Presence of other cardiac implants and grafts; Z87.891 Personal history of nicotine dependence; R07.9 Chest pain, unspecified | CPT/HCPCS: 93005; 99214 ==

== ENCOUNTER 2024-12-19 15:47 | Oncology outpatient (recurring) (ONCR) | payer MEDICARE, SELFPAY ==
[2024-12-19] MEDS: denosumab 60 mg SDV SUBCUT (16:06)
== END 2025-01-14 23:59 | disposition home or self-care (01) ==
PROVIDERS: PCP Nurse Practitioner; Visit Provider Internal Medicine
DX: M81.0 Age-related osteoporosis without current pathological fracture (principal); Z79.899 Other long term (current) drug therapy
CPT/HCPCS: 96372; 96377; J0897

== ENCOUNTER 2025-01-16 16:46 | Emergency (ER) | payer MEDICARE, SELFPAY ==
[2025-01-16 16:54] VITALS: BP 128/81; PULSE 85; TEMP 36.8; O2SAT 96
--- OUTSIDE RECORDS SUMMARY | 2025-01-16 16:55 | XMS_ITS | Clinical Summary ---
Author Organization [facility] Address [address] [place] [address] Care Team Providers Care Pan Washer Hand Name Role Phone Solo Mendenhall NP Primary Care Provider Allergies Active Allergy Reactions Criticality Noted Date Comments Adhesive Tape-Silicones Rash Low 08/28/2021 Aspirin Unknown 08/28/2021 Morphine Unknown 08/28/2021 Penicillins Hives High 08/28/2021 Medications azithromycin (ZITHROMAX) 250 mg tablet TAKE 2 TABLETS BY MOUTH ON DAY 1, AND THEN TAKE 1 TABLET BY MOUTH ONCE A DAY ON DAY 2 THROUGH DAY 5 2 Active clopidogreL (PLAVIX) 75 mg Tablet Take 75 mg by mouth daily. 2 Active diltiaZEM (CARDIZEM) 60 mg tablet 2 Active isosorbide mononitrate (IMDUR) 120 mg Extended Release 24 hour tablet 2 Active lisinopriL (PRINIVIL) 40 mg tablet Take 40 mg by mouth daily. 2 Active metoprolol tartrate (LOPRESSOR) 25 mg tablet TAKE 2 TABLETS BY MOUTH IN THE MORNING AND 1 IN THE EVENING 2 Active atorvastatin (LIPITOR) 40 mg tablet 2 Active mupirocin (BACTROBAN) 2 % Ointment APPLY TO THE AFFECTED AREA(S) TWICE DAILY DIRECTED 2 Active lansoprazole (PREVACID) 15 mg Capsule, Delayed Release(E.C.) Take 15 mg by mouth daily. Active lipase-protease- amylase DR (PANCREAZE) 10,500-25,000-43 ,750 unit capsule Take by mouth. Activ e Cinnamon Bark (Cinnamon) 500 mg Capsule Take by mouth. Acti ve insulin aspart (NOVOLOG PENFILL U-100 INSULIN SUBCUT) Inject by subcutaneous injection. Active INSULIN DETEMIR U-100 SUBCUT Inject by subcutaneous injection. Active Contour Next Test Strips Strip CHECK BLOOD SUGAR FOUR TIMES DAILY 2 Active ambrisentan (LETAIRIS) 10 mg Tablet 2 Active predniSONE (DELTASONE) 20 mg tablet Take 20 mg by mouth 2 times daily. 2 Active promethazine-dex tromethorphan (PHENERGAN-DM) 6.25-15 mg/5 mL syrup take 5mL BY MOUTH EVERY 6 HOURS NEEDED FOR COUGH 2 Active Compact Space Chamber Spacer USE DIRECTED 2 Active furosemide (LASIX) 40 mg tablet Take 40 mg by mouth daily. 2 Active doxycycline hyclate (VIBRAMYCIN) 100 mg capsule Take 100 mg by mouth 2 times daily. 2 Active albuterol sulfate 90 mcg/Actuation inhaler INHALE 2 PUFFS BY MOUTH EVERY 6 HOURS NEEDED FOR SHORTNESS OF BREATH OR WHEEZING 2 Active albuterol (PROVENTIL,DEANDRE JOVANI) 2.5 mg /3 mL (0.083 %) Solution for Nebulization INHALE ONE vial via NEBULIZER EVERY 6 HOURS NEEDED FOR SHORTNESS OF BREATH OR wheezing 2 Active Active Problems No known active problems Family History Medical History Relation Name Comments Kidney Disease Father Cancer Mother Cancer Son Relation Name Status Comments Father Mother Son Social History Tobacco Use Types Packs/Day Years Used Date Smoking Tobacco: Former Cigarettes Q uit: 08/29/2015 Smokeless Tobacco: Never Alcohol Use Standard Drinks/Week Comments Not Currently 0 (1 standard drink = 0.6 oz pur e alcohol) Comments Unknown Sex and Gender Information Value Date Recorded Sex Assigned at Not on file Legal Sex Female 9:34 AM [employer] Gender Identity Not on file Sexual Orientation Not on file Last Filed Vital Signs Vital Sign Reading Time Taken Comments Blood Pressure 141/75 08/28/2021 4:48 PM CDT Pulse 67 08/28/2021 4:48 PM CDT Temperature - - Respiratory Rate - - Oxygen Saturation - - Inhaled Oxygen Concentration - - Weight 73 kg (161 lb) 08/28/2021 4:48 PM CDT Height 160 cm (5' 3 ) 08/28/2021 4:48 PM CDT Body Mass Index 28.52 08/28/2021 4:48 PM CDT Plan of Treatment Health Maintenance Due Date Last Done Comments DTAP/TDAP/TD VACCINES (1 - Tdap) 01/08/1960 PNEUMOCOCCAL VACCINE 50+ YEARS (1 of 1 - PCV) 01/07/19 91 ZOSTER VACCINE (1 of 2) 1991 OSTEOPOROSIS SCREENING 2006 RSV VACCINE (60+ or ) (1 - 1-dose 75+ series) 01/08/2016 INFLUENZA VACCINE (#1) 2024 Insurance MEDICARE PART A AND B Care Teams Pan Washer Hand Relationship Specialty Start Date End Date Solo Mendenhall NP [address] [place] [phone] PCP - General NURSE PRACTITIONER 05/30/21
--- NOTE | 2025-01-16 18:01 | CTR_ITS ---
PROCEDURE INFORMATION: Exam: CT Cervical Spine Without Contrast Exam date and time: 01/16/2025 6:24 PM Age: 85 years old Clinical indication: Injury or trauma; Fall; Blunt trauma; Additional info: Fall/hyperextension TECHNIQUE: Imaging protocol: Computed tomography of the cervical spine without contrast. Radiation optimization: All CT scans at this facility use at least one of these dose optimization techniques: automated exposure control; mA and/or kV adjustment per patient size (includes targeted exams where dose is matched to clinical indication); or iterative reconstruction. COMPARISON: CT head wo con* [id number] 06/15/2024 7:00 PM RADIATION DOSE METRICS: Total DLP (mGy-cm): 166.9 FINDINGS: Bones: Grade 1 degenerative spondylolisthesis C4-C5 secondary to prominent bilateral facet arthropathy. C5-T1 levels demonstrate loss of intervertebral disc space height and marginal spurring. No evidence of severe osseous canal or foraminal stenosis. Multilevel facet arthropathy. Vertebral bodies have normal height. No evidence of fracture. Atlanto odontoid proliferative changes. Lungs: Lung apices are normal. Soft tissues: Unremarkable. CT/CT cervical spin wo con* [id number] IMPRESSION: Multilevel cervical spondylosis without evidence of acute osseous abnormality.
--- NOTE | 2025-01-16 18:01 | CTR_ITS ---
PROCEDURE INFORMATION: Exam: CT Head Without Contrast Exam date and time: 01/16/2025 6:24 PM Age: 85 years old Clinical indication: Injury or trauma; Fall; Blunt trauma (contusions or hematomas); Without loss of consciousness; Additional info: Fall/head injury, please extend to nasal bridge to assess for nasal bone FX TECHNIQUE: Imaging protocol: Computed tomography of the head without contrast. Radiation optimization: All CT scans at this facility use at least one of these dose optimization techniques: automated exposure control; mA and/or kV adjustment per patient size (includes targeted exams where dose is matched to clinical indication); or iterative reconstruction. COMPARISON: CT head wo con* [id number] 06/15/2024 7:00 PM RADIATION DOSE METRICS: Total DLP (mGy-cm): 1458.7 FINDINGS: Brain: There is generalized brain atrophy. Ruffin-white differentiation is preserved. Amorphous lucency is present in the supratentorial white matter bilaterally. No evidence of intracranial hemorrhage or mass effect. Cerebral ventricles: No ventriculomegaly. Paranasal sinuses: Visualized sinuses are unremarkable. No fluid levels. Mastoid air cells: Visualized mastoid air cells are well aerated. Bones: Acute bilateral nasal bone fractures with slight displacement. Soft tissues: Diffuse nasal soft tissue swelling. CT/CT head wo con* [id number] IMPRESSION: 1. Cerebral atrophy and chronic cerebral microvascular disease. 2. No evidence of acute intracranial process. 3. Acute bilateral nasal bone fractures with slight displacement.
--- NOTE | 2025-01-16 18:02 | W.ED.HEATRA ---
HPI - Head Injury General: Chief complaint: Head Injury Stated complaint: Fall Time Seen by Provider: 01/16/25 17:54 History of Present Illness: Patient is an 85-year-old female presenting with a chief complaint of nasal injury, abrasion and forehead contusion. Patient states that she stepped off the curb and lost her balance and hit face first. Patient denies losing consciousness and denies neck pain or back pain. Falls not associated with chest pain, shortness of breath, lightheadedness or dizziness. Patient denies any abdominal pain, nausea or vomiting. She does not have any pain or deformity to upper or lower extremities and is ambulatory without pain. Patient takes Plavix. Patient does not take anticoagulants. Related Data Home Medications ?Medication ?Instructions ?Recorded ?Confirmed apple cider vinegar 300 mg tablet 450 mg PO BID 12/21/19 12/28/24 cinnamon bark 500 mg capsule 500 mg PO BID 06/24/20 12/28/24 (Cinnamon) lansoprazole 30 mg capsule,delayed 30 mg PO BID Pain 01/30/22 12/28/24 release (Prevacid) multivitamin 1 tab PO DAILY 07/30/22 12/28/24 lactobacillus combination no.4 3 3,000 mmu cells PO DAILY 10/05/22 12/28/24 billion cell capsule (Probiotic) Previous Rx's ?Medication ?Instructions ?Recorded nebulizers (Innospire Go Nebulizer #1 ea 05/30/21 [facility]) cholecalciferol (vitamin D3) 25 25 mcg PO DAILY #30 caps 09/01/21 mcg (1,000 unit) capsule inhalational spacing device (Space #1 ea 09/24/21 Chamber) zoledronic acid 4 mg intravenous 5 mg IV .[id number] #1 ea 12/16/21 solution mupirocin 2 % topical ointment 1 applic topical BID #22 grams 06/24/22 blood-glucose sensor (Dexcom G7 #6 ea 10/05/22 Sensor device) blood-glucose,landscape drafter,cont #1 ea 10/05/22 (Dexcom G7 Instrument Maintenance Supervisor) triamcinolone acetonide 0.1 % 1 applic topical DAILY #30 grams 02/23/23 topical ointment blood sugar diagnostic (Prodigy No #200 ea 09/13/23 Coding strips) furosemide 40 mg tablet 40 mg PO DAILY PRN edema #90 tabs 09/14/23 diabetic shoes with 3 inserts #1 ea 09/23/23 insulin glargine 100 unit/mL (3 See Rx Instructions .Route 01/21/24 mL) subcutaneous pen (Lantus .COMPLEX #15 mL Solostar U-100 Insulin) DME: Walker #1 ea 03/30/24 diabetic shoes with 3 inserts #1 ea 05/29/24 clopidogrel 75 mg tablet (Plavix) 75 mg PO DAILY #90 tabs 06/08/24 diltiazem HCl 180 mg 180 mg PO DAILY #90 caps 06/08/24 capsule,extended release 24 hr, controlled (DILT-XR) hydralazine 50 mg tablet 50 mg PO BID #180 tabs 06/08/24 isosorbide mononitrate 120 mg 120 mg PO DAILY #90 tabs 06/08/24 tablet,extended release 24 hr losartan 100 mg tablet 100 mg PO DAILY #90 tabs 06/08/24 nitroglycerin 0.4 mg sublingual 0.4 mg sublingual Q5M PRN chest 06/08/24 tablet pain 30 days #30 tabs potassium chloride 10 mEq 20 meq (2 x 10 mEq) PO DAILY PRN 06/08/24 capsule,extended release CHF #90 caps bupropion HCl 150 mg tablet,12 hr 150 mg PO BID #180 tabs 06/15/24 sustained-release insulin lispro 100 unit/mL 8 unit (0.08 mL) SUBCUT TID 1 06/28/24 subcutaneous pen (Humalog KwikPen month #9 mL (U-100) Insulin) albuterol sulfate 2.5 mg/3 mL 2.5 mg (3 mL) inhalation Q6H PRN 07/18/24 (0.083 %) solution for nebulization shortness of breath or wheezing #90 mL albuterol sulfate 90 mcg/actuation 2 puff inhalation Q6H PRN 07/18/24 aerosol inhaler (ProAir HFA) shortness of breath or wheezing #8.5 grams fluticasone 500 mcg-salmeterol 50 1 inh inhalation BID #60 ea 07/18/24 mcg/dose blistr powdr for inhalation (Advair Diskus) evolocumab 140 mg/mL subcutaneous 140 mg SUBCUT .every 14 days #2 mL 07/22/24 syringe (Repatha Syringe) zonisamide 25 mg capsule (Zonegran) 25 mg PO Q12H #60 caps 08/15/24 doxycycline hyclate 100 mg capsule 100 mg PO BID #14 caps 09/13/24 mupirocin 2 % topical ointment 1 applic topical BID #22 grams 09/13/24 atorvastatin 40 mg tablet See Rx Instructions .Route 09/26/24 .COMPLEX #90 tabs lipase 21,000-protease 3 cap PO .6 TIMES DAILY #400 caps 10/02/24 54,700-amylase 83,900 unit capsule,delayed rel (Pancreaze) nitroglycerin 0.4 mg sublingual 0.4 mg sublingual Q5M PRN chest 11/28/24 tablet pain 30 days #30 tabs metoprolol tartrate 25 mg tablet 25 mg PO TID #300 tabs 01/01/25 Allergies Allergy/AdvReac Type Severity Reaction Status Date / Time adhesive tape Allergy Mild ALGY-Rash Verified 01/16/25 17:02 chicken derived Allergy Unknown Unknown Verified 01/16/25 17:02 alcohol Allergy nausea Verified 01/16/25 17:02 aspirin Allergy ADR-Nose Verified 01/16/25 17:02 Bleed bacitracin (From Neosporin Allergy ALGY-Hives Verified 01/16/25 17:02 ([id number])) bee venom protein (honey bee) Allergy ALGY-Swell Verified 01/16/25 17:02 Lip/Tongue/Throat chocolate Allergy ADR-Nausea Verified 01/16/25 17:02 chocolate flavor Allergy ADR-Nausea Verified 01/16/25 17:02 morphine Allergy Unknown Verified 01/16/25 17:02 neomycin (From Neosporin Allergy ALGY-Hives Verified 01/16/25 17:02 ([id number])) Penicillins Allergy ALGY-Hives Verified 01/16/25 17:02 polymyxin B (From Neosporin Allergy ALGY-Hives Verified 01/16/25 17:02 ([id number])) PFSH ED PFSH: Medical History (Updated 01/16/25 @ 19:04 by Akua Mulligan MD) Cerebral microvascular disease Chronic episodic atrial fibrillation Patient did not want to take any oral anticoagulation because of the side effects Status post placement of implantable loop recorder Recurrent syncope EKG from today 01/16/2020- revealed normal sinus rhythm with early repolarization changes in the inferolateral leads. No acute ST-T changes are noted. Normal GA interval with nonspecific intraventricular conduction delay Atypical chest pain Atherosclerotic heart disease of [place] coronary artery without angina pectoris Patient had the cardiac catheterization in [place], in 2014. At that time, she was found to have mild diffuse coronary artery disease. Rotator cuff arthropathy Appendicitis, acute Cataract Diabetes mellitus associated with pancreatic disease Vitamin D deficiency Congestive heart failure Chronic pancreatitis Dyslipidemia COPD (chronic obstructive pulmonary disease) Peripheral vascular disease Surgical History Status post insertion of nerve stimulator 2010 in [place] Hip joint replacement by other means History of appendectomy History of nasal surgery Hx of toe surgery Hx of hysterectomy, total History of back surgery Family History Brother Bleeding disorder Clotting disorder CAD (coronary artery disease) Stroke Father CAD (coronary artery disease) Cancer Chronic kidney disease (CKD) Sister CAD (coronary artery disease) Cancer Lung disease Diabetes Grandmother Cancer Grandfather CAD (coronary artery disease) Other Hypertension Denies family history of Dementia Suicide Anesthesia complication Social History Smoking and tobacco/nicotine status: former use of tobacco/nicotine (Quit in 2015) Quit status (tobacco/nicotine): has quit using Year quit tobacco: 2017 - 1 PPD x 65 Years Second hand smoke exposure: No Alcohol intake: never Substance/Drug Use: never Adopted: No Caregiver/support person: No Lives independently: Yes Household members: none Housing: House Marital status: / service: No Current occupational status: retired Pets and animals: No Do you think of yourself as: Straight/Heterosexual Current gender identity: Female Physical Exam Narrative: EXAM NARRATIVE: Vitals were reviewed. Patient is alert and oriented. Swelling, tenderness, bruising of the nasal bridge. No septal hematoma. Small abrasion of the nasal brdige. No periorbital ecchymosis or retroauricular ecchymosis. PERRL. EOMI. No pain w/eye movement. No pain w/palpation of facial bones. No pain with palpation of C, T or L-spine. Patient is breathing comfortably, has clear lung sounds bilaterally without wheezing or rhonchi. Breath sounds are symmetric. Patient has normal heart sounds. Abdomen is soft, nondistended nontender. Pelvis is stable and nontender with rocking. Patient does not have pain with range of motion of bilateral shoulders, elbows and wrists; upper extremity joints are nontender to palpation. Patient has no pain with flexion of bilateral hips, knees or ankles; lower extremity joints are nontender to palpation. Patient is ambulatory. Course Vital Signs: Vital signs: Vital Signs Temperature 98.3 F 01/16/25 16:54 Pulse Rate 85 01/16/25 16:54 Blood Pressure 128/81 01/16/25 16:54 Pulse Oximetry 96 01/16/25 16:54 Oxygen Delivery Me thod Room Air 01/16/25 16:54 MDM - Head Injury Medcial Decision Making 85-year-old female with a chief complaint of facial pain, nasal pain, left forehead hematoma after ground-level fall. Differential diagnosis includes, but is limited to, concussion with or without loss of consciousness, traumatic intracranial hemorrhage, injury to C, T or L-spine, intrathoracic or intra-abdominal organ injury, fracture, dislocation, contusion, abrasion, laceration. On initial exam, patient is hemodynamically stable and does not appear toxic. Patient was evaluated CT of her head and C-spine and treated with Tylenol for pain. CT is consistent of bilateral nasal bone fractures. Patient was counseled on sinus precautions, advised on supportive care at home and advised to follow-up with primary care physician in 1 week. Patient was discharged in stable condition. Lab Data Radiology Impressions Cervical Spine CT 01/16/25 18:01 IMPRESSION: Multilevel cervical spondylosis without evidence of acute osseous abnormality. Head CT 01/16/25 18:01 IMPRESSION: 1. Cerebral atrophy and chronic cerebral microvascular disease. 2. No evidence of acute intracranial process. 3. Acute bilateral nasal bone fractures with slight displacement. All radiology interpretation(s) finalized by discharge Discharge Plan Discharge Patient Disposition: Home Clinical Impression: Fall Fracture closed, nasal bone Qualifiers: Encounter type: initial encounter Qualified Code(s): S02.2XXA - Fracture of nasal bones, initial encounter for closed fracture Condition: Stable Prescriptions: No Action apple cider vinegar 300 mg tablet 450 mg PO BID cinnamon bark [Cinnamon] 500 mg capsule 500 mg PO BID cholecalciferol (vitamin D3) 25 mcg (1,000 unit) capsule 25 mcg PO DAILY Qty: 30 0RF lansoprazole [Prevacid] 30 mg capsule,delayed release(DR/EC) 30 mg PO BID zoledronic acid 4 mg recon soln 5 mg IV .[id number] Qty: 1 0RF Rx Instructions: will get the infusion at the GI lab triamcinolone acetonide 0.1 % ointment 1 applic topical DAILY Qty: 30 0RF Rx Instructions: apply leg clopidogrel [Plavix] 75 mg tablet 75 mg PO DAILY Qty: 90 3RF diltiazem HCl [DILT-XR] 180 mg capsule,ext.rel 24h degradable 180 mg PO DAILY Qty: 90 3RF hydralazine 50 mg tablet 50 mg PO BID Qty: 180 3RF isosorbide mononitrate 120 mg tablet extended release 24 hr 120 mg PO DAILY Qty: 90 3RF losartan 100 mg tablet 100 mg PO DAILY Qty: 90 3RF nitroglycerin 0.4 mg tablet, sublingual 0.4 mg sublingual Q5M PRN (Reason: chest pain) 30 Days Qty: 30 3RF Rx Instructions: until response; do not exceed 3 doses per episode potassium chloride 10 mEq capsule, extended release 20 meq PO DAILY PRN (Reason: CHF) Qty: 90 2RF (DME) DME: Walker Unit See Rx Instructions .ROUTE .MEDSUPPLY Qty: 1 0RF Rx Instructions: Code E0143 and E0156 walker 4 wheels and seat bupropion HCl 150 mg tablet sustained-release 12 hr 150 mg PO BID Qty: 180 1RF albuterol sulfate [ProAir HFA] 90 mcg/actuation HFA aerosol inhaler 2 puff inhalation Q6H PRN (Reason: shortness of breath or wheezing) Qty: 8.5 5RF Rx Instructions: 340B albuterol sulfate 2.5 mg /3 mL (0.083 %) solution for nebulization 2.5 mg inhalation Q6H PRN (Reason: shortness of breath or wheezing) Qty: 90 6RF fluticasone propion-salmeterol [Advair Diskus] 500-50 mcg/dose blister with device 1 inh inhalation BID Qty: 60 5RF Repatha Syringe 140 mg/mL syringe 140 mg SUBCUT .every 14 days Qty: 2 2RF multivitamin Tablet 1 tab PO DAILY (DME) Dexcom G7 Sensor Device See Rx Instructions .ROUTE .MEDSUPPLY Qty: 6 0RF Rx Instructions: Change every 10days (DME) Dexcom G7 Instrument Maintenance Supervisor [facility] See Rx Instructions .Route Qty: 1 0RF Rx Instructions: As directed furosemide 40 mg tablet 40 mg PO DAILY PRN (Reason: edema) Qty: 90 0RF (DME) diabetic shoes with 3 inserts See Rx Instructions .Route .MEDSUPPLY Qty: 1 0RF Rx Instructions: As directed to HOME. BC/BS want a 75.00 copay and patient wants it submitted again with additional diagnosis. nitroglycerin 0.4 mg tablet, sublingual 0.4 mg sublingual Q5M PRN (Reason: chest pain) 30 Days Qty: 30 3RF Rx Instructions: until response; do not exceed 3 doses per episode doxycycline hyclate 100 mg capsule 100 mg PO BID Qty: 14 0RF mupirocin 2 % ointment 1 applic topical BID Qty: 22 0RF (DME) Innospire Go Nebulizer [facility] [place] [facility] See Rx Instructions .Route Qty: 1 0RF Rx Instructions: As directed mupirocin 2 % ointment 1 applic topical BID Qty: 22 1RF Rx Instructions: Apply to affected area(s) until healed (DME) Prodigy No Coding Strip See Rx Instructions .Route Qty: 200 0RF Rx Instructions: As directed insulin glargine [Lantus Solostar U-100 Insulin] 100 unit/mL (3 mL) insulin pen See Rx Instructions .ROUTE .COMPLEX Qty: 15 1RF Dose Instruction: INJECT 32 UNITS SUBCUTANEOUSLY TWICE DAILY; MAX DAILY DOSE:64 UNITS Rx Instructions: INJECT 32 UNITS SUBCUTANEOUSLY TWICE DAILY; MAX DAILY DOSE:64 UNITS (DME) Diabetic Shoes with 3 Inserts See Rx Instructions .Route .MEDSUPPLY Qty: 1 0RF Rx Instructions: As directed to HOME insulin lispro [Humalog KwikPen Insulin] 100 unit/mL insulin pen 8 unit SUBCUT TID 30 Days Qty: 9 0RF zonisamide [Zonegran] 25 mg capsule 25 mg PO Q12H Qty: 60 5RF Rx Instructions: for burning feet atorvastatin 40 mg tablet See Rx Instructions .ROUTE .COMPLEX Qty: 90 3RF Dose Instruction: TAKE ONE TABLET BY MOUTH DAILY Rx Instructions: TAKE ONE TABLET BY MOUTH DAILY Pancreaze 21,000-54,700- 83,900 unit capsule,delayed release(DR/EC) 3 cap PO .6 TIMES DAILY Qty: 400 3RF Rx Instructions: administer with meals metoprolol tartrate 25 mg tablet 25 mg PO TID Qty: 300 6RF (DME) Space Chamber Spacer See Rx Instructions .Route Qty: 1 0RF Rx Instructions: As directed Probiotic 3 billion cell Capsule 3,000 mmu cells PO DAILY Rx Instructions: administer with a meal Discharge Orders: Discharge ED (Routine); Ordered 01/16/25 Ordered By: Akua Mulligan Referrals: Solo Mendenhall, [facility] [Primary Care Provider, Family Practice] Patient Instructions: Opioid Safety, Pain Management, Patient Portal & Fam Instructions Activity Restrictions/Additional Instructions: Please continue to monitor your condition closely at home. Take Ibuprofen 400mg and Tylenol 500-1000mg every six hours for pain and inflammation. Ice your injury.do not blow your nose, sneeze with your mouth open or drink through a straw as this will worsen your symptoms and pain. If your condition worsens or additional concerns arise, please return promptly to the emergency department for reassessment. Follow up with your primary care doctor in one week. Talk to your doctor about a referral to an ENT specialist. Print Language: [place] Coding Level of Care Code ED Reproduction Machine Loader for Fiordaliza Ribeiro
[2025-01-16 19:34] VITALS: BP 120/85; PULSE 75; RESP 16; O2SAT 96
== END 2025-01-16 19:35 | disposition home or self-care (01) ==
PROVIDERS: Emergency Provider Emergency Medicine; PCP Nurse Practitioner
DX: S02.2XXA Fracture of nasal bones, initial encounter for closed fracture (principal); Z79.02 Long term (current) use of antithrombotics/antiplatelets; Z79.4 Long term (current) use of insulin; Z87.891 Personal history of nicotine dependence; E78.5 Hyperlipidemia, unspecified; J44.9 Chronic obstructive pulmonary disease, unspecified; I25.10 Atherosclerotic heart disease of native coronary artery without angina pectoris; I50.9 Heart failure, unspecified; S00.83XA Contusion of other part of head, initial encounter; W10.1XXA Fall (on)(from) sidewalk curb, initial encounter; E11.9 Type 2 diabetes mellitus without complications
CPT/HCPCS: 70450; 72125; 99284; J9999

== ENCOUNTER → 2025-01-24 13:44 | Outpatient (BNVA) | payer MEDICARE, SELFPAY | PROVIDERS: PCP Nurse Practitioner; Visit Provider Podiatrist Foot & Ankle Surgery | DX: E11.40 Type 2 diabetes mellitus with diabetic neuropathy, unspecified (principal); L60.3 Nail dystrophy; L84 Corns and callosities; E11.69 Type 2 diabetes mellitus with other specified complication; K86.9 Disease of pancreas, unspecified; I73.9 Peripheral vascular disease, unspecified; R60.9 Edema, unspecified; Z79.4 Long term (current) use of insulin | CPT/HCPCS: 11056; 11720 ==

== ENCOUNTER → 2025-01-26 10:39 | Outpatient (BNVA) | payer MEDICARE, SELFPAY | PROVIDERS: PCP Nurse Practitioner; Visit Provider Dermatology | DX: L82.1 Other seborrheic keratosis (principal); L81.4 Other melanin hyperpigmentation; L72.0 Epidermal cyst; H61.032 Chondritis of left external ear; L82.0 Inflamed seborrheic keratosis; L53.8 Other specified erythematous conditions; L29.89 Other pruritus; D48.5 Neoplasm of uncertain behavior of skin; L91.8 Other hypertrophic disorders of the skin; L57.0 Actinic keratosis | CPT/HCPCS: 11102; 11200; 17000; 17110; 99213 ==

== ENCOUNTER → 2025-01-30 11:10 | Outpatient (BNVA) | payer MEDICARE, SELFPAY | PROVIDERS: PCP Nurse Practitioner; Visit Provider Internal Medicine | DX: R94.6 Abnormal results of thyroid function studies (principal); E11.69 Type 2 diabetes mellitus with other specified complication; K86.9 Disease of pancreas, unspecified; K86.1 Other chronic pancreatitis; M81.0 Age-related osteoporosis without current pathological fracture | CPT/HCPCS: 36415; 80053; 80061; 82044; 82306; 83036; 84439; 84443 ==

== ENCOUNTER → 2025-04-04 09:34 | Outpatient (BNVA) | payer MEDICARE, SELFPAY | PROVIDERS: PCP Nurse Practitioner; Visit Provider Podiatrist Foot & Ankle Surgery | DX: I25.118 Atherosclerotic heart disease of native coronary artery with other forms of angina pectoris (principal); I11.0 Hypertensive heart disease with heart failure; I50.9 Heart failure, unspecified; I48.20 Chronic atrial fibrillation, unspecified; Z79.02 Long term (current) use of antithrombotics/antiplatelets; I73.9 Peripheral vascular disease, unspecified; E78.5 Hyperlipidemia, unspecified; Z87.891 Personal history of nicotine dependence; K86.9 Disease of pancreas, unspecified; R60.9 Edema, unspecified; E11.69 Type 2 diabetes mellitus with other specified complication; E11.40 Type 2 diabetes mellitus with diabetic neuropathy, unspecified; L60.3 Nail dystrophy | CPT/HCPCS: 11720; 99214 ==

== ENCOUNTER 2025-04-19 21:23 | Emergency (ER) | payer MEDICARE, SELFPAY ==
--- OUTSIDE RECORDS SUMMARY | 2018-04-20 11:49 | XMS_ITS | Continuity of Care Document ---
Author Organization [facility] Address [address] [place] [address] Phone Care Team Providers Care Ditching Machine Operator Name Role Phone Unavailable Unavailable Unavailable Allergies, Adverse Reactions, Alerts Substance Reaction Status Criticality morphine Active No Information adhesive tape Active No Information polymyxin B Active No Information NEOMYCIN SULFATE Active No Informat ion BACITRACIN ZINC Active No Informati on bacitracin Active No Information PENICILLIN Active No Information Medications Medication Instructions Dosage Effective Dates (start - stop) Status Comments Oxygen Oxygen - Active Letairis 10 mg tablet take 1 tablet by oral route every day 10 MG - Active glipizide 5 mg tablet take 1 tablet by oral route 2 times every day before meals 5 MG - Active clopidogrel 75 mg tablet take 1 tablet by oral route every day 75 MG - Active furosemide 40 mg tablet take 2 tablet by oral route every day 80 MG - Active lansoprazole 30 mg capsule,delayed release take 1 capsule by oral route every day before a meal 30 MG - Active Pancreaze 10,500 unit-35,500 unit-61,500 unit capsule,delayed release take 1 capsule by oral route 3 times every day with meals and 1 capsule with each snack 1.00 capsule - Active lisinopril 40 mg tablet take 1 tablet by oral route every day 40 MG - Active metolazone 2.5 mg tablet take 1 tablet by oral route every day 2.5 MG - Active Effer-K 10 mEq effervescent tablet take 1 tablet by oral route every day dissolved in 2-3 ounces of cold juice or ice water and then drink 10 MEQ - Active Vitamin D3 5,000 unit tablet - Active tramadol 50 mg tablet take 1 tablet by oral route every 12 hours as needed 50 MG - Active cyclobenzaprine 10 mg tablet take 1 tablet by oral route 3 times every day 10 MG - Active Prevacid 30 mg capsule,delayed release take 1 capsule by oral route every day before a meal 30 MG - Active diltiazem 30 mg tablet take 1 tablet by oral route 3 times every day 30 MG - Active Procedures Procedure Date Remov Impacted Cerumen Irrig/lavage Offic/outpt E&m [facility] provided in an urgent care [facility] er Advance Directives Directive Yes / No Effective Date File Name No Information Encounters Encounter Description Practice Location Reason(s) For Visit Diagnoses Date Provider Providers Copied on Encounter [facility], [address], [place], [place], [id number], [place] tel:[phone] [facility] No Information 8 No Information Offic/outpt E&m [facility], [address], [place], [place], [id number], [place] tel:[phone] [facility] foreign body in ear (chief complaint) Cerumen debris on tympanic membrane of both ears 8 Federico Bolanos. [address], [place], [address], [place]. tel:[phone] Referring Provider: Luis Miguel ESCALONA, [address], [place], [address]. tel:[phone] Family History Family Member Type Diagnosis Age At Onset Mother Problem (finding) Family history of malignant neoplasm of pancreas 84 Father Problem (finding) Father Problem (finding) Family history of malignant neoplasm of kidney Payers Payer name Insurance type Covered libertarian ID Authoriza tion(s) [place] [id number] AARP Supp [facility] CI [id number] Social History Type Description Quantity Date Captured Comments Sex Female Smoking Status No Information Chief Complaint And Reason For Visit No Information Reason For Referral Reason For Referral No Information History Of Present Illness Encounter Date Complaint History Of Prese nt Illness No Information Functional Status Date Functional Assessmen t No Information Instructions Date Instruction Additional Infor mation No Information Assessments Type Assessment Date No Information Patient Care Teams Name Effective Dates (start - stop) Status Members No Information
--- OUTSIDE RECORDS SUMMARY | 2019-07-07 03:40 | XMS_ITS | Continuity of Care Document ---
Author Organization [facility] Address [address] [place] [address] [place] [address] Phone Care Team Providers Care Pharmacy Grad Intern Name Role Phone Unavailable Unavailable Unavailable Allergies, Adverse Reactions, Alerts Substance Reaction Status Criticality adhesive tape Hives Active No Information morphine Low blood pressure Active No Inform ation penicillin G Swelling Active No Information Medications Medication Instructions Dosage Effective Dates (start - stop) Status Comments albuterol sulfate 1.25 mg/3 mL solution for nebulization inhale 6 milliliter by inhalation route 3- 4 times every day via nebulizer 2.5 MG - Active Letairis 10 mg tablet take 1 tablet by oral route every day 10 MG - Active Brovana 15 mcg/2 mL solution for nebulization inhale 2 milliliter by inhalation route 2 times every day 15 MCG - Active clopidogrel 75 mg tablet take 1 tablet by oral route every day 75 MG - Active cyclobenzaprine 10 mg tablet take 1 tablet by oral route 2 times every day 10 MG - Active Vitamin D2 50,000 unit capsule take 1 capsule by oral route every week - Active metolazone 2.5 mg tablet take 1 tablet by oral route every day 2.5 MG - Active potassium chloride ER 10 mEq capsule,extended release take 1 capsule by oral route every day with food 10 MEQ - Active tramadol 50 mg tablet take 1 tablet by oral route every 6 hours as needed 50 MG - Active diltiazem 60 mg tablet take 1 tablet by oral route 3 times every day 60 MG - Active Crestor 5 mg tablet take 2 tablet by oral route every day 10 MG - Active metoprolol tartrate 25 mg tablet take 1 tablet by oral route 2 times every day 25 MG - Active Prevacid 30 mg capsule,delayed release take 1 capsule by oral route every day before a meal 30 MG - Active Creon 12,000-38,000-60,000 unit capsule,delayed release take 2 capsule by oral route 3 times every day with meals and 1 capsule with each snack 2.00 capsule - Active Myrbetriq 50 mg tablet,extended release take 1 tablet by oral route every day swallowing whole with water. Do not crush, chew and/or divide. 50 MG - Active Lasix 40 mg tablet take 1 tablet by oral route every day 40 MG - Active Symbicort 160 mcg-4.5 mcg/actuation HFA aerosol inhaler inhale 2 puff by inhalation route 2 times every day in the morning and evening 2.00 puff - Active Trelegy Ellipta 100 mcg-62.5 mcg-25 mcg powder for inhalation inhale 1 puff by inhalation route every day at the same time each day 1.00 puff - Active Procedures Procedure Date Scan Computerized; Retina Est Pt Detailed Advance Directives Directive Yes / No Effective Date File Name No Information Encounters Encounter Description Practice Location Reason(s) For Visit Diagnoses Date Provider Est Pt Detailed [facility], [address] [place], [place], [id number], tel:[phone] Escobar 1yr DE/OCT or sooner per Dr. Briggs. 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, bilateral 9 No Information [facility], [address] [place], [id number], [place] tel:[phone] [place] Complete exam (chief complaint)d iabetic eye exam (chief complaint) Degeneration of iris (pigmentary), left eye 8 No Information [facility], [address] [place], [id number], [place] tel:[phone] [place] flashes of lights (chief complaint) Other vitreous opacities, left eye 7 No Information [facility], [address] [place] [address] [place], [id number], [place] tel:[phone] [place] floaters OU (chief complaint) Dry eye syndrome of bilateral lacrimal glands 6 No Information [facility], [address] [place] [address] [place], [id number], [place] tel:[phone] [place] 2 mo f/u s/p Vitrectomy (chief complaint) Dry Eye Syndrome 5 No Information [facility], [address] [place] [address] [place], [id number], [place] tel:[phone] [place] foreign body sensation, floaters OD (chief complaint) No Information 4 No Information [facility], [address] [place] [address] [place], [id number], [place] tel:[phone] [place] Instilling PF and Ofloxacin TID OD (chief complaint) No Information 4 No Information [facility], [address] [place] [address] [place], [id number], [place] tel:[phone] [place] pain OD (chief complaint) No Information 4 Elayne Corley. [address] [place] [address], [place], [address], . tel:[phone] [facility], [address] [place] [address] [place], [id number], [place] tel:[phone] [facility] No Information 4 No Information [facility], [address] [place] [address] [place], [id number], [place] tel:[phone] [facility] No Information 4 No Information [facility], [address] [place] [address] [place], [id number], [place] tel:[phone] [facility] No Information 4 [facility]. [address] [place] [address] [place], [id number], [place]. tel:[phone] [facility], [address] [place] [address] [place], [id number], [place] tel:[phone] [place] No Information Oct-1 4 No Information [facility], [address] [place] [address] [place], [id number], [place] tel:[phone] [place] vision getting better, seeing floaters on/ off OS (chief complaint) No Information Oct-0 4 No Information [facility], [address] [place] [address] [place], [id number], [place] tel:[phone] [place] Vision has been decreasing since OS (chief complaint) No Information Sep-1 4 No Information [facility], [address] [place] [address] [place], [id number], [place] tel:[phone] [place] pt c/o of pain last night, but better this am OS (chief complaint) No Information Sep-1 4 Elayne Corley. [address] [place] [address], [place], [address], . tel:[phone] [place] [address], [address] [place] [address] [place], [id number], [place] tel:[phone] [facility] No Information Sep-0 4 No Information [facility], [address] [place] [address] [place], [id number], [place] tel:[phone] [facility] No Information Sep-0 4 Herve Broussard. [address] [place] [address] [place], [id number], [place]. tel:[phone] [place] [address], [address] [place] [address] [place], [id number], [place] tel:[phone] [facility] No Information Sep-0 4 [facility]. [address] [place] [address] [place], [id number], [place]. tel:[phone] [facility], [address] [place] [address] [place], [id number], [place] tel:[phone] [place] seeing black spots over vision (chief complaint) Vitreous Floaters 4 No Information [facility], [address] [place] [address] , [place], [place], [id number], tel:[phone] [place] Other vitreous opacities 4 Elayne Corley. [address] [place] [address], [address] [place] [address]. tel:[phone] [facility], [address] [place] [address] [place], [place], [id number], [place] tel:[phone] [place] Pain in or around eye 3 Diego Blanco. [address] [place], [address], [place]. tel:[phone] [facility], [address] [place] [address] [place], [place], [id number], tel:[phone] [place] Vitreous Detachment 3 Elayne Corley. [address] [place] [address], [facility], . tel:[phone] [place] [address], [address] [place] [address] [place], [place], [id number], [place] tel:[phone] [place] Vitreous degeneration 3 Elayne Corley. [address] [place] [address], [facility], . tel:[phone] [place] [address], [address] [place] [address] [place], [place], [id number], tel:[phone] [place] Tear film insufficiency, unspecifiedOther vitreous opacities 3 Elayne Corley. [address] [place] [address], [facility], . tel:[phone] [place] [address], [address] [place] [address] [place], [id number], [place] tel:[phone] [place] DermatochalasisPtosi s of eyelid, unspecified 2 Diego Blanco. [address], [place], [address], [place]. tel:[phone] Family History Family Member Type Diagnosis Age At Onset Brother Problem (finding) glaucoma Payers Payer name Insurance type Covered republican ID Authorjustinea tieyal(s) Medicare [place] MB [id number] [facility] Supplemental Claims Dept [id number] Social History Type Description Quantity Date Captured Comments Alcohol Use Details No Caffeine Use Details coffee and soda 2 cups per day Tobacco Use Status Current non-smoker 20 Smoking Status Never smoker Non-Smoking Tobacco Use Details : No Details Available : No Details Available Sex Female Chief Complaint And Reason For Visit From encounter dated '07/07/2019 09:40'. 1yr DE/OCT or sooner per Dr. Briggs. (chief complaint) Plan Of Treatment Date Type Action Status Patient Education Dilated Retinal Exam: A bout This Test completed Patient Education Dilated Retinal Exam: A bout This Test completed Patient Education Dry Eyes: After Your Vi sit completed History Of Present Illness Encounter Date Complaint History Of Prese nt Illness 1yr DE/OCT or sooner per Dr. Briggs. The 79 year old female presents for evaluation of 1yr DE/OCT or sooner per Dr. Briggs. History of DM type 2 w/ Mild NPDR, ME, Bilateral. Patient reports vision has changed since last visit, blurred vision even with glasses, has the need to lay down in order for blurriness to pass, floaters OU - have increased in volume and size, flashes OS, itching OU. Symptoms seem to have progressively worsened in past month. Patient unsure when last A1c was done or level. Last glucose measure this AM @176. DM currently semi-controlled with Insulin.Patient not currently on ocular drops. Yearly Follow Up The 78 year old female presents for Yearly Follow Up for diabetes. Pt states she has noticed a change in her she has good days and some bad days, but her sugar is at times high and some days to low. Pt states she still has some floaters off and on. Pt states her sugar level last night was 194 and this morning [id number], and her last A1C was at 9.5 which was 3 months ago. diabetic eye exam per Dr. Sumanth jones, patient states she was diagnosed 05/2017 with diabetes II, patient states sugars are stable and monitored with diet and pills, patient states she does not take pills daily, last checked sugars this morning they were 137, Unknown last A1C possible 6.8 Complete exam Vitreous opaciti es OS, Patient states in the past 2 months she has noticed a slight increase in flaoters these come and go, patient states today she does not see any, patient states in the past 2 days she has noticed slight decrease in vision OD>OS this comes and goes, patient states a lot of itching in OU, patient currently not using any drops, patient states sometimes she has seen some flashes of light in OS only this started about 3 months ago and this comes and goes, flashes of lights The 76 year ol d female presents for evaluation of flashes of lights in both eyes the left > right. It started about 6 months ago. The symptom comes and goes. The condition is described as seeing floaters and hard to focus. floaters OU The patient is p resent for evaluation of floaters OU, onstill 6 months. Patient is currently applying artifical tears and states theres no decrease in floaters OU. Patient describes floaters as round with a hole inside and denies flashes of light; patient states floaters come and go but occur more frequently in the morning. Patient states vision is stable and does not report any other ocular issues at this moment. 2 mo f/u s/p Vitrectomy 2 mo f/u s/p Vitrectomy in the right eye. The condition is described as seeing black spots on/ off both eyes, for the last 2 months. Vision good and stable at this time. foreign body sensation, floaters foreign body sensation, floaters OD Instilling PF and Ofloxacin TID Instilling PF and Ofloxacin TID OD vision is improved vision is imp roved OD pain pain OD seeing floaters seeing floaters OD vision getting etienne r, seeing floaters on/ off vision getting better, seeing floaters on/ off OS Headache and slight pain left si de Instilling PF and Ocuflox qid In stilling PF and Ocuflox qid OS Vision has been decreasing since Vision has been decreasing since OS pt c/o of pain last night, but better this am pt c/o of pain last night, but better this am OS seeing black spots over vision s eeing black spots over vision in the left > right. It started about 1 year ago. The symptom is constant. The condition is not any better. The condition is described as fuzzy vision. (pt referred by Dr. Holly for Vitreous floaters, OU). 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 Discussed diagnosis with patient. The clinical exam was consistent with Type 2 diabetes. The patient was advised to maintain tight blood sugar control, blood pressure and lipid control. Recommend patient follow up in 1 year with DFE. Patient was also advised to keep all appointments with PCP for diabetic evaluation and counseling to avoid the systemic complications of diabetes. 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 Discussed diagnosis with patient. The clinical exam was consistent with Type 2 diabetes. The patient was advised to maintain tight blood sugar control, blood pressure and lipid control. Recommend patient follow up in 1 year with DFE. Patient was also advised to keep all appointments with PCP for diabetic evaluation and counseling to avoid the systemic complications of diabetes. 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 Advised patient of condition. Reassured patient of current condition and treatment. Will continue to observe condition and or symptoms. Call if VA worsens. Related to Degeneration of iris (pigmentary), left eye Follow up - 1 year D E/OCT or sooner pRN Related to Degeneration of iris (pigmentary), left eye 1 year OCT DE or sooner Related to Other vitreous opacities, left eye Follow up - 1 year OCT DE or shayna ner Related to Other vitreous opacities, left eye Impression/Plan - OC T performed today. Discussed diagnosis in detail with patient. Advised patient of condition. Will continue to observe condition and or symptoms. Related to Other vitreous opacities, left eye - PRN Related to Dry e ye syndrome of bilateral lacrimal glands - Other than artific ial tears, no Rx recommended. Related to Dry eye syndrome of bilateral lacrimal glands - PRN Related to Dry E ye Syndrome - Dry eyes account f or the patient's complaints. There is no evidence of permanent changes to the cornea. Explained condition does not have a cure and will need artificial tears for maintenance. Related to Dry Eye Syndrome - Schd PPVx OS then OD Related t o Vitreous Floaters - OCT ordered and pe rformed today, Discussed diagnosis in detail with patient. Discussed treatment options with patient. Surgery is required, Surgical risks and benefits were discussed, explained and understood by patient. Patient elects to have surgery. Risk level 2. Schd PPVx OS then OD Related to Vitreous Floaters Vitreous Floaters OU - Retinal consult re: surgery Related to Vitreous Floaters - prn Related to Pain in or around eye Pain in or around ey e OS Condition: new prob, no addtl w/u needed. Vision: vision not affected. Symptoms: will continue to monitor. - Discussed diagnosis in detail with patient. Discussed treatment options with patient. No treatment is required at this time. Will continue to observe condition and or symptoms. Reassured patient of current condition, could be related to scar tissue from brow pexies 10/2011. Monitor for now. Related to Pain in or around eye Vitreous Detachment OUNo tears or holes - Continue strict RD PrecautionsRTC in 4-6 months for dilation OU Related to Vitreous Detachment Vitreous Detachment OUNo tears or holes+Flashes - Continue strict RD PrecautionsRTC in 3 months for dilation OU Related to Vitreous Detachment Dry Eye Syndrome OU - Artificial tears as directed Related to Dry Eye Syndrome Vitreous Floaters OU +Flashes - RD PrecautionsRTC in 2 months for dilation Related to Vitreous Floaters Brow Ptosis, OU - es tablished, stable - vision affected - could improve with surgery - Discussed diagnosis in detail with patient. Discussed treatment options with patient. Surgical risks and benefits were discussed, explained and understood by patient. Patient elects to have surgery. Rec Brow pexies at time of BULB. Related to Ptosis Dermatochalasis, BUL - new prob, no addtl w/u needed - vision affected - could improve with surgery - Discussed diagnosis in detail with patient. Discussed treatment options with patient. Surgical risks and benefits were discussed, explained and understood by patient. Patient elects to have surgery. VFs confirm affect on vision. Rec BULB. RL2, no blood thinners. Related to Dermatochalasis Assessments Type Assessment Date assessment Type 2 diab w mild n onprlf diabetic rtnop w/o macular edema, bilateral impression Type 2 diab w mild n onprlf diabetic rtnop w/o macular edema, bilateral: e11.3293. OU
[2025-04-19 21:24] VITALS: BP 127/59; PULSE 71; RESP 18; TEMP 36.8; O2SAT 96; BMI 28.5
--- OUTSIDE RECORDS SUMMARY | 2025-04-19 21:30 | XMS_ITS | Clinical Summary ---
Author Organization [facility] Address [address] 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
--- NOTE | 2025-04-19 21:46 | CTR_ITS ---
PROCEDURE INFORMATION: Exam: CT Maxillofacial Without Contrast Exam date and time: 04/19/2025 9:52 PM Age: 85 years old Clinical indication: Injury or trauma; Fall; Blunt trauma (contusions or hematomas); Nose; Additional info: Fall with suspected nasal bone fracture TECHNIQUE: Imaging protocol: Computed tomography of the face without contrast. Radiation optimization: All CT scans at this facility use at least one of these dose optimization techniques: automated exposure control; mA and/or kV adjustment per patient size (includes targeted exams where dose is matched to clinical indication); or iterative reconstruction. COMPARISON: CT head wo con* [id number] 01/16/2025 6:24 PM RADIATION DOSE METRICS: Total DLP (mGy-cm): 663.3 FINDINGS: Paranasal sinuses: No significant sinus disease is apparent. Orbital cavities: Orbits and globes are unremarkable. Vasculature: Advanced diffuse vascular calcification noted. Bones: Diffuse osteopenia. Displaced and comminuted bilateral nasal bone fractures are visualized. These show mildly progressive displacement from 01/16/2025. No new fracture or other change. Severe cervical DJD. Soft tissues: Nasal swelling. CT/CT facial bones wo con* [id number] IMPRESSION: Displaced and comminuted bilateral nasal bone fractures are again visualized. These show mildly progressive displacement from 01/16/2025. No new fracture or other change.
--- NOTE | 2025-04-19 21:46 | CTR_ITS ---
PROCEDURE INFORMATION: Exam: CT Head Without Contrast Exam date and time: 04/19/2025 9:52 PM Age: 85 years old Clinical indication: Injury or trauma; Fall; Blunt trauma (contusions or hematomas); Additional info: Fall with facial trauma, on plavix TECHNIQUE: Imaging protocol: Computed tomography of the head without contrast. Radiation optimization: All CT scans at this facility use at least one of these dose optimization techniques: automated exposure control; mA and/or kV adjustment per patient size (includes targeted exams where dose is matched to clinical indication); or iterative reconstruction. COMPARISON: CT head wo con* [id number] 01/16/2025 6:24 PM RADIATION DOSE METRICS: Total DLP (mGy-cm): 1133.5 FINDINGS: Brain: No focal hemorrhage or midline shift is identified. The ventricles and parenchyma show mild atrophy and chronic bicerebral white matter ischemic change. Minimal bilateral globus pallidus calcification. Cerebral ventricles: No ventriculomegaly or evidence of hydrocephalus. Paranasal sinuses: The partially assessed sinuses are grossly clear. Mastoid air cells: Visualized mastoid air cells are well aerated. Bones: No displaced skull fracture is noted. Nasal bone fractures. Face CT pending. Soft tissues: Unremarkable. Vasculature: Diffuse vascular calcifications are present. CT/CT head wo con* [id number] IMPRESSION: 1. No acute intracranial hemorrhage. 2. Mild age-related changes. 3. Face CT pending.
--- NOTE | 2025-04-19 21:47 | ECG_ITS ---
[facility] Test Date: 2025-04-19 Pat Name: Mireille Kaur Department: Room: Gender: Female Planisher: : 1940 Requested By: Sylvester Child Order Number: [id number] hCau MD: Blanca Nava M.D. Measurements Intervals [place] Rate: 67 P: 88 WA: 141 QRS: 81 QRSD: 136 T: 49 QT: 423 QTc: 449 Interpretive Statements SINUS RHYTHM RIGHT BUNDLE BRANCH BLOCK [120+ ms QRS DURATION, UPRIGHT V1, 40+ ms S IN I/aVL/V4/V5/V6] Compared to ECG 11/28/2024 11:26:56 No significant changes Electronically Signed On 04-20-2025 18:47:02 CEMENT MIXER by Blanca Nava M.D. [email or web address]
--- NOTE | 2025-04-19 21:59 | W.ED.FALL ---
HPI - Fall General: Chief Complaint: Fall Stated Complaint: fall hit face Time Seen by Provider: 04/19/25 21:37 History of Present Illness: 85-year-old female extensive past medical history significant for hypertension, COPD with chronic hypoxemic respiratory failure on 3 L nasal cannula baseline, pulmonary hypertension, CHF, CAD, diabetes, peripheral vascular disease, presenting the emergency department with a fall 1 hour prior to arrival with facial trauma, reporting nasal bone pain, patient reports that she does recall the fall and did not lose consciousness but she does not understand why she fell, she apparently told triage that she felt dizzy but is now unsure if she was dizzy, she reports that she has chronic shortness of breath which is at baseline without any recent change, no chest pain, no palpitations, no fevers cough or sore throat recently, currently only complaining of pain to her nasal bridge, bleeding was present on arrival but resolved spontaneously, last tetanus last year. Reports that she sustained a fall with a nasal bone fracture in January of this year Related Data Home Medications ?Medication ?Instructions ?Recorded ?Confirmed apple cider vinegar 300 mg tablet 450 mg PO BID 12/21/19 04/11/25 cinnamon bark 500 mg capsule 500 mg PO BID 06/24/20 04/11/25 (Cinnamon) lansoprazole 30 mg capsule,delayed 30 mg PO BID Pain 01/30/22 04/11/25 release (Prevacid) multivitamin 1 tab PO DAILY 07/30/22 04/11/25 lactobacillus combination no.4 3 3,000 mmu cells PO DAILY 10/05/22 04/11/25 billion cell capsule (Probiotic) Previous Rx's ?Medication ?Instructions ?Recorded nebulizers (Innospire Go Nebulizer #1 ea 05/30/21 [facility]) cholecalciferol (vitamin D3) 25 25 mcg PO DAILY #30 caps 09/01/21 mcg (1,000 unit) capsule inhalational spacing device (Space #1 ea 09/24/21 Chamber) zoledronic acid 4 mg intravenous 5 mg IV .[id number] #1 ea 12/16/21 solution mupirocin 2 % topical ointment 1 applic topical BID #22 grams 06/24/22 blood-glucose sensor (Dexcom G7 #6 ea 10/05/22 Sensor device) blood-glucose,baby formula mixer,cont #1 ea 10/05/22 (Dexcom G7 Barrel Rifler Button) triamcinolone acetonide 0.1 % 1 applic topical DAILY #30 grams 02/23/23 topical ointment blood sugar diagnostic (Prodigy No #200 ea 09/13/23 Coding strips) furosemide 40 mg tablet 40 mg PO DAILY PRN edema #90 tabs 09/14/23 diabetic shoes with 3 inserts #1 ea 09/23/23 DME: Walker #1 ea 03/30/24 diabetic shoes with 3 inserts #1 ea 05/29/24 nitroglycerin 0.4 mg sublingual 0.4 mg sublingual Q5M PRN chest 06/08/24 tablet pain 30 days #30 tabs potassium chloride 10 mEq 20 meq (2 x 10 mEq) PO DAILY PRN 06/08/24 capsule,extended release CHF #90 caps insulin lispro 100 unit/mL 8 unit (0.08 mL) SUBCUT TID 1 06/28/24 subcutaneous pen (Humalog KwikPen month #9 mL (U-100) Insulin) albuterol sulfate 2.5 mg/3 mL 2.5 mg (3 mL) inhalation Q6H PRN 07/18/24 (0.083 %) solution for nebulization shortness of breath or wheezing #90 mL albuterol sulfate 90 mcg/actuation 2 puff inhalation Q6H PRN 07/18/24 aerosol inhaler (ProAir HFA) shortness of breath or wheezing #8.5 grams fluticasone 500 mcg-salmeterol 50 1 inh inhalation BID #60 ea 07/18/24 mcg/dose blistr powdr for inhalation (Advair Diskus) evolocumab 140 mg/mL subcutaneous 140 mg SUBCUT .every 14 days #2 mL 07/22/24 syringe (Repatha Syringe) zonisamide 25 mg capsule (Zonegran) 25 mg PO Q12H #60 caps 08/15/24 doxycycline hyclate 100 mg capsule 100 mg PO BID #14 caps 09/13/24 mupirocin 2 % topical ointment 1 applic topical BID #22 grams 09/13/24 nitroglycerin 0.4 mg sublingual 0.4 mg sublingual Q5M PRN chest 11/28/24 tablet pain 30 days #30 tabs metoprolol tartrate 25 mg tablet 25 mg PO TID #300 tabs 01/01/25 atorvastatin 40 mg tablet See Rx Instructions .Route 02/21/25 .COMPLEX #90 tabs bupropion HCl 150 mg tablet,12 hr 150 mg PO BID #180 tabs 03/01/25 sustained-release jvypyq-mghwxfvs-fbolubo(pork)21,000-54,700-83,900 3 cap PO .6 TIMES DAILY #400 caps 03/15/25 unit capsule,del rel (Pancreaze) clopidogrel 75 mg tablet See Rx Instructions .Route 03/26/25 .COMPLEX #90 tabs diltiazem HCl 180 mg See Rx Instructions .Route 03/26/25 capsule,extended release 24 hr, .COMPLEX #90 caps controlled (DILT-XR) hydralazine 50 mg tablet See Rx Instructions .Route 03/26/25 .COMPLEX #180 tabs isosorbide mononitrate 120 mg See Rx Instructions .Route 03/26/25 tablet,extended release 24 hr .COMPLEX #90 tabs losartan 100 mg tablet See Rx Instructions .Route 03/26/25 .COMPLEX #90 tabs insulin glargine 100 unit/mL (3 32 unit (0.32 mL) SUBCUT DAILY #15 03/28/25 mL) subcutaneous pen (Lantus mL Solostar U-100 Insulin) doxycycline hyclate 100 mg capsule 100 mg PO BID 5 days #10 caps 04/19/25 oxymetazoline 0.05 % nasal mist 2 spray intranasal BID 3 days #15 04/19/25 (Afrin (oxymetazoline)) mL Allergies Allergy/AdvReac Type Severity Reaction Status Date / Time adhesive tape Allergy Mild ALGY-Rash Verified 04/19/25 21:33 chicken derived Allergy Unknown Unknown Verified 04/19/25 21:33 alcohol Allergy nausea Verified 04/19/25 21:33 aspirin Allergy ADR-Nose Verified 04/19/25 21:33 Bleed bacitracin (From Neosporin Allergy ALGY-Hives Verified 04/19/25 21:33 ([id number])) bee venom protein (honey bee) Allergy ALGY-Swell Verified 04/19/25 21:33 Lip/Tongue/Throat chocolate Allergy ADR-Nausea Verified 04/19/25 21:33 chocolate flavor Allergy ADR-Nausea Verified 04/19/25 21:33 morphine Allergy Unknown Verified 04/19/25 21:33 neomycin (From Neosporin Allergy ALGY-Hives Verified 04/19/25 21:33 ([id number])) Penicillins Allergy ALGY-Hives Verified 04/19/25 21:33 polymyxin B (From Neosporin Allergy ALGY-Hives Verified 04/19/25 21:33 ([id number])) PFSH ED PFSH: Medical History Cerebral microvascular disease Chronic episodic atrial fibrillation Patient did not want to take any oral anticoagulation because of the side effects Status post placement of implantable loop recorder Recurrent syncope EKG from today 01/16/2020- revealed normal sinus rhythm with early repolarization changes in the inferolateral leads. No acute ST-T changes are noted. Normal [place] interval with nonspecific intraventricular conduction delay Atypical chest pain Atherosclerotic heart disease of [place] coronary artery without angina pectoris Patient had the cardiac catheterization in [place], in 2014. At that time, she was found to have mild diffuse coronary artery disease. Rotator cuff arthropathy Appendicitis, acute Cataract Diabetes mellitus associated with pancreatic disease Vitamin D deficiency Congestive heart failure Chronic pancreatitis Dyslipidemia COPD (chronic obstructive pulmonary disease) Peripheral vascular disease Surgical History Status post insertion of nerve stimulator 2010 in [place] Hip joint replacement by other means History of appendectomy History of nasal surgery Hx of toe surgery Hx of hysterectomy, total History of back surgery Family History Brother Bleeding disorder Clotting disorder CAD (coronary artery disease) Stroke Father CAD (coronary artery disease) Cancer Chronic kidney disease (CKD) Sister CAD (coronary artery disease) Cancer Lung disease Diabetes Grandmother Cancer Grandfather CAD (coronary artery disease) Other Hypertension Denies family history of Dementia Suicide Anesthesia complication Social History Smoking and tobacco/nicotine status: never used tobacco/nicotine Quit status (tobacco/nicotine): has quit using Year quit tobacco: 2017 - PPD x 65 Years Second hand smoke exposure: No Alcohol intake: never Substance/Drug Use: never Adopted: No Caregiver/support person: No Lives independently: Yes Household members: none Housing: House Marital status: / service: No Current occupational status: retired Pets and animals: No Do you think of yourself as: Straight/Heterosexual Current gender identity: Female Physical Exam Narrative: EXAM NARRATIVE: Gen: A&Ox4, no acute distress, nontoxic appearing HEENT: Normocephalic, patient with swelling and overlying abrasions to the nasal bridge, dried blood to the bilateral nares, no significant tenderness or swelling to the orbital rim or zygoma or mandible, no palpable scalp hematoma or laceration no periorbital ecchymosis, no Carson sign, no scleral icterus, external ears normal, moist mucous membranes Neck: Supple, full range of motion, no observable masses Lungs: No Respiratory distress, Lungs clear to auscultation bilaterally no rales, rhonchi, wheezing, saturating well on 3 L nasal cannula which is her baseline home requirement CV: Regular rate and rhythm, no murmur, no pitting edema to lower extremities bilaterally Abdomen: Soft, nondistended, nontender to palpation MSK: No joint swelling, FROM all 4 extremities Skin: No rashes, petechiae, lesions. Normal color per patient. Neuro: Alert and oriented, no slurred speech, sensation and strength grossly intact all 4 extremities Psych: Appropriate for situation. Course Reevaluation(s): Reevaluation #1: Patient reassessed at this time, feels well, CT facial bones showing mild progression of previously displaced nasal bone fracture, patient is also status post multiple nasal surgeries for deviated septum, offered attempt at closed reduction which patient was willing to undergo, close reduction attempted x 2 with minimal improvement versus no change of deformity, recommend PCP follow-up, Afrin, prophylactic antibiotics given overlying laceration/abrasion to the nasal bridge, nose blowing precautions. Time: 23:31 Vital Signs: Vital signs: Vital Signs Temperature 98.2 F 04/19/25 21:24 Pulse Rate 71 04/19/25 21:24 Respiratory Rate 16 04/19/25 22:14 Blood Pressure 141/74 04/19/25 22:20 Pulse Oximetry 97 04/19/25 22:20 Oxygen Delivery Me thod Room Air 04/19/25 21:24 MDM - Fall Medical Decision Making 85-year-old female with an extensive medical history consisting of COPD CHF pulmonary hypertension diabetes and CAD on chronic oxygen therapy and Plavix presenting to the emergency department with a fall causing nasal trauma. Patient recalls the fall did not lose consciousness but is unable to tell me if she was dizzy and mention dizziness to triage staff, will obtain a cardiac workup given this factor, CT of the face and head to rule out intracranial hemorrhage and confirm suspected nasal bone fracture, tetanus is up-to-date, given overlying abrasion to the nasal bridge if nasal bone fracture is present acutely would anticipate recommending oral antibiotic therapy on a prophylactic basis, Afrin, nose blowing precautions, PCP follow-up. Lab Data Labs showing no leukocytosis or anemia, creatinine 1.1 borderline and at patient's baseline, troponin minimally elevated 17 04/19/25 22:34 04/19/25 22:[address] 04/19/25 21:46 IMPRESSION: Displaced and comminuted bilateral nasal bone fractures are again visualized. These show mildly progressive displacement from 01/16/2025. No new fracture or other change. Head CT 04/19/25 21:46 IMPRESSION: 1. No acute intracranial hemorrhage. 2. Mild age-related changes. 3. Face CT pending. Laboratory Results WBC 11.14 10^3/uL (3.29-11.43) 04/19/25 22:34 RBC 4.16 10^6/uL (3.85-5.65) 04/19/25 22:34 Hgb 12.40 g/dL (11.27-16.99) 04/19/25 22:34 Hct 37.8 % (36-47) 04/19/25 22:34 MCV 90.9 fl (85-98) 04/19/25 22:34 MCH 29.8 pg (27-33) 04/19/25 22:34 MCHC 32.8 g/dL (30-55) 04/19/25 22:34 RDW 12.5 % (12.1-15.1) 04/19/25 22:34 Plt Count 323 10^3/cmm (157-399) 04/19/25 22:34 MPV 9.1 fL (7.4-10.4) 04/19/25 22:34 Neut % (Auto) 57.3 % 04/19/25 22:34 Lymph % (Auto) 31.8 % 04/19/25 22:34 [place] % (Auto) 8.9 % 04/19/25 22:34 Eos % (Auto) 1.0 % 04/19/25 22:34 Baso % (Auto) 0.3 % 04/19/25 22:34 Neut # (Auto) 6.39 10^3/uL (1.8-7.7) 04/19/25 22:34 Lymph # (Auto) 3.5 10^3/uL (0.8-4.8) 04/19/25 22:34 [place] # (Auto) 1.0 10^3/uL (0.2-0.9) H 04/19/25 22:34 Eos # (Auto) 0.1 10^3/uL (0.0-0.8) 04/19/25 22:34 Baso # (Auto) 0.0 10^3/uL (0.0-0.1) 04/19/25 22:34 Nucleated RBC % (auto) 0 % 04/19/25:34 Nucleated RBCs # 0.0 /100WBC 04/19/25 22:34 Sodium 137 mmol/L (136-145) 04/19/25 22:34 Potassium 4.9 mmol/L (3.5-5.1) 04/19/25 22:34 Chloride 100 mmol/L (98-107) 04/19/25 22:34 Carbon Dioxide 25 mmol/L (22-29) 04/19/25 22:34 Anion Gap 16.9 (5-19) 04/19/25 22:34 BUN 23 mg/dL (8-23) 04/19/25 22:34 Creatinine 1.1 mg/dL (0.5-0.9) H 04/19/25 22:34 GFR Calculation Not Reportable 04/19/25 22:34 Glucose 211 mg/dL (65-115) H 04/19/25 22:34 Calculated Osmolality 294 mOsm/kg (285-295) 04/19/25 22:34 Calcium 9.9 mg/dL (8.5-10.5) 04/19/25 22:34 Magnesium 2.1 mg/dL (1.7-2.3) 04/19/25 22:34 Troponin T Baseline 17 ng/L (0-10) H 04/19/25 22:34 All radiology interpretation(s) finalized by discharge ED provider radiology interpretation(s): CT head no acute intracranial injury, CT facial bones showing progressive displacement of the previously fractured and bilateral comminuted nasal bone fracture, no new fractures identified EKG Data EKG 1: I personally reviewed and interpreted this EKG as follows: EKG interpretation date: 04/19/25 EKG interpretation time: 22:08 Interpretation: Sinus rhythm at 67 bpm, right bundle branch block, no STEMI, no ectopy, QTc 439 ms Discharge Plan Discharge Patient Disposition: Home Clinical Impression: Facial trauma, Closed fracture nasal bone, Dizziness Condition: Stable Prescriptions: New doxycycline hyclate 100 mg capsule 100 mg PO BID 5 Days Qty: 10 0RF Afrin (oxymetazoline) 0.05 % mist 2 spray intranasal BID 3 Days Qty: 15 0RF No Action apple cider vinegar 300 mg tablet 450 mg PO BID cinnamon bark [Cinnamon] 500 mg capsule 500 mg PO BID cholecalciferol (vitamin D3) 25 mcg (1,000 unit) capsule 25 mcg PO DAILY Qty: 30 0RF lansoprazole [Prevacid] 30 mg capsule,delayed release(DR/EC) 30 mg PO BID zoledronic acid 4 mg recon soln 5 mg IV .[id number] Qty: 1 0RF Rx Instructions: will get the infusion at the GI lab triamcinolone acetonide 0.1 % ointment 1 applic topical DAILY Qty: 30 0RF Rx Instructions: apply leg nitroglycerin 0.4 mg tablet, sublingual 0.4 mg sublingual Q5M PRN (Reason: chest pain) 30 Days Qty: 30 3RF Rx Instructions: until response; do not exceed 3 doses per episode potassium chloride 10 mEq capsule, extended release 20 meq PO DAILY PRN (Reason: CHF) Qty: 90 2RF (DME) DME: Walker Unit See Rx Instructions .ROUTE .MEDSUPPLY Qty: 1 0RF Rx Instructions: Code E0143 and E0156 walker 4 wheels and seat albuterol sulfate [ProAir HFA] 90 mcg/actuation HFA aerosol inhaler 2 puff inhalation Q6H PRN (Reason: shortness of breath or wheezing) Qty: 8.5 5RF Rx Instructions: 340B albuterol sulfate 2.5 mg /3 mL (0.083 %) solution for nebulization 2.5 mg inhalation Q6H PRN (Reason: shortness of breath or wheezing) Qty: 90 6RF fluticasone propion-salmeterol [Advair Diskus] 500-50 mcg/dose blister with device 1 inh inhalation BID Qty: 60 5RF Repatha Syringe 140 mg/mL syringe 140 mg SUBCUT .every 14 days Qty: 2 2RF multivitamin Tablet 1 tab PO DAILY (DME) Dexcom G7 Sensor Device See Rx Instructions .ROUTE .MEDSUPPLY Qty: 6 0RF Rx Instructions: Change every 10days (DME) Dexcom G7 [facility] See Rx Instructions .Route Qty: 1 0RF Rx Instructions: As directed furosemide 40 mg tablet 40 mg PO DAILY PRN (Reason: edema) Qty: 90 0RF (DME) diabetic shoes with 3 inserts See Rx Instructions .Route .MEDSUPPLY Qty: 1 0RF Rx Instructions: As directed to HOME. BC/BS want a 75.00 copay and patient wants it submitted again with additional diagnosis. nitroglycerin 0.4 mg tablet, sublingual 0.4 mg sublingual Q5M PRN (Reason: chest pain) 30 Days Qty: 30 3RF Rx Instructions: until response; do not exceed 3 doses per episode doxycycline hyclate 100 mg capsule 100 mg PO BID Qty: 14 0RF mupirocin 2 % ointment 1 applic topical BID Qty: 22 0RF (DME) Innospire Go Nebulizer [facility] See Rx Instructions .Route Qty: 1 0RF Rx Instructions: As directed mupirocin 2 % ointment 1 applic topical BID Qty: 22 1RF Rx Instructions: Apply to affected area(s) until healed (DME) Prodigy No Coding Strip See Rx Instructions .Route Qty: 200 0RF Rx Instructions: As directed (DME) Diabetic Shoes with 3 Inserts See Rx Instructions .Route .MEDSUPPLY Qty: 1 0RF Rx Instructions: As directed to HOME insulin lispro [Humalog KwikPen Insulin] 100 unit/mL insulin pen 8 unit SUBCUT TID 30 Days Qty: 9 0RF zonisamide [Zonegran] 25 mg capsule 25 mg PO Q12H Qty: 60 5RF Rx Instructions: for burning feet metoprolol tartrate 25 mg tablet 25 mg PO TID Qty: 300 6RF atorvastatin 40 mg tablet See Rx Instructions .ROUTE .COMPLEX Qty: 90 3RF Dose Instruction: TAKE ONE TABLET BY MOUTH DAILY Rx Instructions: TAKE ONE TABLET BY MOUTH DAILY bupropion HCl 150 mg tablet sustained-release 12 hr 150 mg PO BID Qty: 180 1RF Pancreaze 21,000-54,700- 83,900 unit capsule,delayed release(DR/EC) 3 cap PO .6 TIMES DAILY Qty: 400 3RF Rx Instructions: administer with meals clopidogrel 75 mg tablet See Rx Instructions .ROUTE .COMPLEX Qty: 90 3RF Dose Instruction: TAKE ONE TABLET BY MOUTH DAILY Rx Instructions: TAKE ONE TABLET BY MOUTH DAILY diltiazem HCl [DILT-XR] 180 mg capsule,ext.rel 24h degradable See Rx Instructions .ROUTE .COMPLEX Qty: 90 3RF Dose Instruction: TAKE ONE CAPSULE BY MOUTH DAILY Rx Instructions: TAKE ONE CAPSULE BY MOUTH DAILY hydralazine 50 mg tablet See Rx Instructions .ROUTE .COMPLEX Qty: 180 3RF Dose Instruction: TAKE ONE TABLET BY MOUTH TWICE DAILY Rx Instructions: TAKE ONE TABLET BY MOUTH TWICE DAILY losartan 100 mg tablet See Rx Instructions .ROUTE .COMPLEX Qty: 90 3RF Dose Instruction: TAKE ONE TABLET BY MOUTH DAILY Rx Instructions: TAKE ONE TABLET BY MOUTH DAILY isosorbide mononitrate 120 mg tablet extended release 24 hr See Rx Instructions .ROUTE .COMPLEX Qty: 90 3RF Dose Instruction: TAKE ONE TABLET BY MOUTH DAILY Rx Instructions: TAKE ONE TABLET BY MOUTH DAILY insulin glargine [Lantus Solostar U-100 Insulin] 100 unit/mL (3 mL) insulin pen 32 unit SUBCUT DAILY Qty: 15 1RF Rx Instructions: max dose 64U (DME) Space Chamber Spacer See Rx Instructions .Route Qty: 1 0RF Rx Instructions: As directed Probiotic 3 billion cell Capsule 3,000 mmu cells PO DAILY Rx Instructions: administer with a meal Discharge Orders: Discharge ED (Routine); Ordered 04/19/25 Ordered By: Sylvester Child Referrals: Solo Mendenhall, OCCUPATIONAL THERAPY DEPARTMENT CHAIR-C [Primary Care Provider, Family Practice] Patient Instructions: Patient Portal & Fam Instructions, Nasal Fracture (ED) Print Language: Hungarian Coding Level of Care Code ED Associate Store Leader for Fiordaliza Ribeiro
[2025-04-19 22:14] VITALS: RESP 16
[2025-04-19] MEDS: oxyCODONE-APAP 5-325 mg Tablet 1 TAB PO (22:14)
[2025-04-19 22:20] VITALS: BP 141/74; O2SAT 97
[2025-04-19 22:43] LABS: Hematocrit 37.8 % (36-47); Hemoglobin 12.40 g/dL (11.27-16.99); Mean Corpuscular HGB Conc 32.8 g/dL (30-55); Mean Corpuscular Hemoglobin 29.8 pg (27-33); Mean Corpuscular Volume 90.9 fl (85-98); Nucleated Red Blood Cells % 0 %; Platelet Count 323 10^3/cmm (157-399); Red Blood Count 4.16 10^6/uL (3.85-5.65); White Blood Count 11.14 10^3/uL (3.29-11.43)
[2025-04-19 23:01] LABS: Troponin(5th) Baseline 17 ng/L (0-10)
[2025-04-19 23:02] LABS: Anion Gap 16.9 (5-19); Blood Urea Nitrogen 23 mg/dL (8-23); Calcium 9.9 mg/dL (8.5-10.5); Carbon Dioxide 25 mmol/L (22-29); Chloride 100 mmol/L (98-107); Glucose 211 mg/dL (65-115); Magnesium 2.1 mg/dL (1.7-2.3); Osmolality Calculated 294 mOsm/kg (285-295); Potassium 4.9 mmol/L (3.5-5.1); Sodium 137 mmol/L (136-145)
== END 2025-04-19 23:47 | disposition home or self-care (01) ==
PROVIDERS: Emergency Provider Student in an Organized Health Care Education/Training Program; PCP Nurse Practitioner
DX: S02.2XXA Fracture of nasal bones, initial encounter for closed fracture (principal); R42 Dizziness and giddiness; S00.31XA Abrasion of nose, initial encounter; Z79.4 Long term (current) use of insulin; Z79.02 Long term (current) use of antithrombotics/antiplatelets; Z87.891 Personal history of nicotine dependence; I25.10 Atherosclerotic heart disease of native coronary artery without angina pectoris; E78.5 Hyperlipidemia, unspecified; J44.9 Chronic obstructive pulmonary disease, unspecified; E11.9 Type 2 diabetes mellitus without complications; I11.0 Hypertensive heart disease with heart failure; I50.9 Heart failure, unspecified; W19.XXXA Unspecified fall, initial encounter
CPT/HCPCS: 36415; 70450; 70486; 80048; 83735; 84484; 85025; 93005; 99284; J9999

== ENCOUNTER → 2025-04-25 09:25 | Outpatient (BNVA) | payer MEDICARE, SELFPAY | PROVIDERS: PCP Nurse Practitioner; Visit Provider Internal Medicine | DX: R94.6 Abnormal results of thyroid function studies (principal); E11.40 Type 2 diabetes mellitus with diabetic neuropathy, unspecified; E11.69 Type 2 diabetes mellitus with other specified complication; K86.9 Disease of pancreas, unspecified; I50.9 Heart failure, unspecified; K86.1 Other chronic pancreatitis; M81.0 Age-related osteoporosis without current pathological fracture; E78.5 Hyperlipidemia, unspecified | CPT/HCPCS: 80053; 80061; 82043; 82306; 83036; 84439; 84443 ==

== ENCOUNTER → 2025-05-01 10:17 | Outpatient (BNVA) | payer MEDICARE, SELFPAY | PROVIDERS: PCP Nurse Practitioner; Visit Provider Internal Medicine Endocrinology, Diabetes & Metabolism | DX: E11.69 Type 2 diabetes mellitus with other specified complication (principal); K86.1 Other chronic pancreatitis; M81.0 Age-related osteoporosis without current pathological fracture; R94.6 Abnormal results of thyroid function studies; E11.40 Type 2 diabetes mellitus with diabetic neuropathy, unspecified | CPT/HCPCS: 99214 ==

== ENCOUNTER → 2025-05-15 09:24 | Outpatient (BNVA) | payer MEDICARE, SELFPAY | PROVIDERS: PCP Nurse Practitioner; Visit Provider Internal Medicine Endocrinology, Diabetes & Metabolism | DX: E11.69 Type 2 diabetes mellitus with other specified complication (principal); K86.9 Disease of pancreas, unspecified; K86.1 Other chronic pancreatitis; M81.0 Age-related osteoporosis without current pathological fracture; E78.5 Hyperlipidemia, unspecified; E11.40 Type 2 diabetes mellitus with diabetic neuropathy, unspecified; R94.6 Abnormal results of thyroid function studies | CPT/HCPCS: 99214 ==